=== PATIENT | male | born 1955 | race Caucasian/White ===

== ENCOUNTER 2020-11-17 12:41 | Observation (INO) | payer MEDICARE, OTHER ==
[2020-11-17 16:07] VITALS: BMI 28.3
[2020-11-17 17:43] LABS: Absolute Lymphocytes (CBC) 1.7 K/uL (0.7-4.9); Basophils % 0.6 % (0-1.3); Hematocrit 40.4 % (39.6-49.0); Lymphocytes % 28.3 % (15.3-44.8); MPV 7.2 fL (7.6-11.3); RBC Red Blood Cell Count 4.13 M/uL (4.33-5.43)
[2020-11-17] MEDS ORDERED: SOTALOL HCL 80 MG TAB PO ONE (18:00)
[2020-11-17 18:07] LABS: ALT/SGPT 55 U/L (12-78); AST/SGOT 33 U/L (15-37); Albumin 3.8 g/dL (3.4-5.0); Alkaline Phosphatase 82 U/L (45-117); BUN Blood Urea Nitrogen 17 mg/dL (7-18); Bicarbonate 28 mmol/L (21-32); Bilirubin Total 0.6 mg/dL (0.2-1.0); CKMB Creatine Kinase MB 1.1 ng/mL (0.3-3.6); Creatine Phosphokinase 77 U/L (39-308); Glucose Level 97 mg/dL (74-106); Magnesium 2.3 mg/dL (1.8-2.4); Potassium 4.3 mmol/L (3.5-5.1); Protein, Total 7.7 g/dL (6.4-8.2); Sodium Level 137 mmol/L (136-145); Troponin I < 0.02 ng/mL (0.0-0.045)
[2020-11-17] MEDS ORDERED: RIVAROXABAN 20 MG TABLET PO ONE (19:08)
--- NOTE | 2020-11-17 22:18 | HP ---
Date of Admission: 11/17/2020 Chief Complaint: Atrial fibrillation. History Of Present Illness: This is a 65-year-old male patient, who came into office for his routine followup visit and he had no complaints of palpitation, no shortness of breath. Upon examination, t he patient was detected to have irregular heart rhythm and a stat EKG was done, which revealed atrial fibrillation as suspected and the patient was advised to get admitted to the hospital for further ev aluation and management of this problem. The patient does not have any prior history of atrial fibri llation. Allergies: LISINOPRIL CAUSING ANGIOEDEMA. Medications: Amlodipine 10 mg daily, aspirin 81 mg takes 2 tablets daily, famotidine 40 mg daily at bedtime, pravastatin 40 mg daily. Review of Systems: Cardiovascular: As mentioned above. All other systems reviewed and negative. Past Medical History: Significant for impaired fasting glucose, hypertension, hyperlipidemia, COPD, gastroesophageal reflux disease, benign prostatic hypertrophy, and elevated PSA. Past Surgical History: Cervical spine surgery. Family History: Father with osteoarthritis. Mother had unknown type of cancer. His siblings are al iglesia and no known health problems. Social History: Prior history of smoking, not at present time. Use of alcohol negative. Physical Examination: Vital Signs: Blood pressure 129/85, pulse 87 and irregularly irregular, temperature 97.2, respirator y rate 15, weight 186.6 pounds, height 69 inches. General: Awake, alert, oriented, not in distress. HEENT: Head atraumatic, normocephalic. Conjunctivae nonerythematous. Sclerae white. Mouth, no thr ush or edema noted. Ears/Nose, no mass, lesion, discharge noted. Neck: Supple. No JVD, lymph nodes, bruit, thyromegaly noted. Lungs: Bilateral good equal air entry. Clear to auscultation. No rhonchi. No rales. Heart: Normal heart sounds, no murmur or gallop. Abdomen: Soft, bowel sounds normal. No guarding, rigidity, tenderness, mass, hepatosplenomegaly, dis tention, or bruit noted. Extremities: No leg edema. No calf tenderness. Skin: No rash, ulcer, cellulitis. Lymphatics: No lymph node enlargement in neck, supraclavicular, infraclavicular region. Neuro: No focal neurological deficit. Chest: Unremarkable. External Genitalia: Deferred. Rectal: Deferred. Laboratory Data: Outpatient EKG shows atrial fibrillation. White count 6, hemoglobin 13.8, platelet s 289. Sodium 137, potassium 4.3, chloride 104, bicarb 28, BUN 17, creatinine 0.61, glucose 97. Kari er function tests unremarkable. TSH 1.46. COVID-19 test negative. Magnesium 2.3. Troponin less th an 0.02. Impression: 1.Atrial fibrillation, paroxysmal. 2.Hypertension. 3.Hyperlipidemia. 4.Impaired fasting glucose. 5.Gastroesophageal reflux disease. Plan: We will go ahead and admit the patient to hospital for further evaluation and management of th is problem. We will admit the patient for observation to telemetry unit and after the patient's admi ssion to the hospital he will start him on sotalol 80 mg. We will continue that every 12 hours and X arelto 20 mg p.o. x1 dose was ordered to be given this evening. Home medications will be continued p er order. We will get an echo with Doppler and consult Cardiology. Details and plan of treatment discussed with the patient. I will see him tomorrow morning for followup. MONIKA/MODL Voice ID: [id number]
[2020-11-18] MEDS: SOTALOL HCL 80 MG TAB PO SCH ×2 (05:25→17:09)
[2020-11-18 05:28] VITALS: O2SAT 100
--- NOTE | 2020-11-18 09:32 | RAD REPORT ---
EXAM DESCRIPTION: US - Abdomen Exam Complete - 11/18/2020 8:45 am CLINICAL HISTORY: gallbladder polyp COMPARISON: Abdomen Exam Complete dated 06/09/2020 FINDINGS: Gallbladder size is normal. No mobile gallstones identified. A 10 millimeter echogenic non shadowing mass within the lumen of the gallbladder is noted. This is similar to the May 2020 w[place] dy. Growth is not suspected. This could be a large polyp or possibly neoplasm. Common bile duct is no rmal with no common duct stone identified. Liver is normal size with no suspicious liver lesion. Small cyst is present in the central right lobe . Echogenic pattern indicates fatty infiltration. No portal vein abnormality. Spleen could not be clearly visualized due to bowel. There is no notation to indicate prior splenecto my. Normal size spleen was seen on the May 2020 study. The pancreas is obscured by bowel gas. No hydronephrosis or suspicious mass in either kidney. Aorta and IVC are partially obscured by bowel. No gross abnormality seen. No ascites or bulky lymphad enopathy. IMPRESSION: A 10 millimeter echogenic mass in the gallbladder lumen is again noted. No change in siz e has occurred since May 2020. This is probably a large polyp. A neoplasm cannot be excluded 1 a polyp has reached this size. Diffuse fatty infiltration of the liver with no suspicious liver lesion identified. The spleen, pancreas, aorta and IVC are obscured are partially obscured due to bowel and body habitus affects. Follow-up CT imaging can be performed as clinical findings warrant.
[2020-11-18 16:28] VITALS: BP 116/65; TEMP 97
--- NOTE | 2020-11-18 16:56 | CON ---
Date of Consultation: 11/18/2020 Reason For Consultation: New onset atrial fibrillation. History Of Present Illness: Mr. Reynolds is a 65-year-old male. He has a history of hypertension, gas troesophageal reflux disease, and dyslipidemia. He was seen by Dr. Fernandez on routine office visit and was found to be in atrial fibrillation with rate controlled, admitted into the hospital for further e valuation and treatment. He has been on sotalol, he has already received two doses of 80 mg, and rem ains in atrial fibrillation, rate of 79, again no symptoms. He was also placed on Xarelto. Past Medical History: As stated earlier. Allergies: HE IS ALLERGIC TO LISINOPRIL AND HE HAS ANGIOEDEMA WITH IT. Review of Systems: Negative. Social History: Negative. Family History: Noncontributory. Medications: At home include aspirin, Pravachol, Pepcid, and Norvasc. Physical Examination: Vital Signs: Stable. He was afebrile. He was in atrial fibrillation, rate is 71. HEENT: Negative. Neck: Supple with no bruit. Chest: Clear. Cardiac: Revealed atrial fibrillation. Abdomen: Benign. Extremities: Revealed no clubbing, cyanosis, or edema. Diagnostic Data: All normal other than the atrial fibrillation. Impression And Plan: Atrial fibrillation, new onset in the setting of dyslipidemia, hypertension fro m alcohol use. I think his CHADS-VASc score Xarelto. He is on sotalol. I think after hi s third dose, he can go home. He has an echocardiogram pending. I will see him in the next 2 weeks or so and we will have a new stress test as an outpatient and if he stays in atrial fibrillation in 3 weeks, then . Case was discussed with Dr. Fernandez. He needs to continue his Pravachol and n eeds to continue his Pepcid, aspirin and Norvasc. CAREY/ANNL Voice ID: [id number] Report ID: [id number]
[2020-11-18] MEDS ORDERED: RIVAROXABAN 20 MG TABLET PO ONE (18:57)
--- NOTE | 2020-11-18 21:59 | DS ---
Date of Discharge: 11/18/2020 Subjective: The patient was seen this morning for followup. No new complaints or problems reported by the patient. Physical Examination: General: Lying in bed, not in distress. HEENT: Unremarkable. Lungs: Clear to auscultation. Heart: Sounds normal. Abdomen: Soft. Bowel sounds normal. No guarding, rigidity, tenderness, distention. Extremities: No leg edema. Discharge Medications And Instructions: 1.Continue all prior home medication except following changes: a.Stop amlodipine. b.Stop aspirin. c.Start Xarelto 20 mg 1 tablet by mouth daily with evening meal. d.Start sotalol 80 mg take 1 tablet by mouth 2 times a day. 2.Prescription for Xarelto and sotalol was sent to his [facility]. 3.Follow up at my office next week on 11/24/2020 at 9 a.m. 4.Follow up with Dr. Justin in 3 weeks. Hospital Course: This is a 65-year-old male patient, admitted to the hospital with new onset atrial fibrillation. Please see dictated H and P for more information. The patient came into the office. He was evaluated, diagnosed as having atrial fibrillation, and he had no symptoms from atrial fibrill ation. He was admitted to the hospital to telemetry unit and he was started on sotalol and Dr. Get manuel from Cardiology was consulted. The patient also received anticoagulation therapy. Xarelto first dose was given yesterday evening and second dose was given today prior to discharge. Importance of a nticoagulation therapy was discussed with him and risk and benefit of anticoagulation therapy discuss ed with him. He was advised to take appropriate precautions to avoid any injury and if he has any he ad injury, then he needs to report to emergency room for further evaluation. Dr. Justin has evaluat ed him and echocardiogram was done, result pending, and Dr. Justin will follow up in about 3 weeks. If he still remains in atrial fibrillation at that time, then he will decide to do electrical cardio version on him. Abdominal ultrasound has shown 10 mm gallbladder polyp, unchanged from May 2020 . On an elective outpatient basis, we will consider referral to general surgeon for consideration of gallbladder surgery considering the size of the gallbladder polyp, but that should be done probably in the near future once we resolve this issue with atrial fibrillation. Final Diagnoses: 1.Atrial fibrillation, paroxysmal. 2.Hypertension. 3.Hyperlipidemia. 4.Gallbladder polyp. 5.Impaired fasting glucose. 6.Gastroesophageal reflux disease. Laboratory Data: White count 6, hemoglobin 13.8, platelets 289. Sodium 137, potassium 4.3, chloride 104, bicarb 28, BUN 17, creatinine 0.61, glucose 97. Liver function tests unremarkable. TSH 1.46. COVID-19 test negative. Magnesium 2.3. Troponin less than 0.02. MONIKA/MODL Voice ID: [id number] Report ID: [id number]
--- NOTE | 2020-11-19 08:05 | ECHO ---
HEIGHT: 5 ft 8 in WEIGHT: 186 lb 1.6 oz DATE OF STUDY: 11/18/[address]: Evan Fernandez MD 2-DIMENSIONAL: YES M.MODE: YES DOPPLER: YES COLOR FLOW: YES TDS: NO PORTABLE: NO DEFINITY: NO BUBBLE STUDY: NO DIAGNOSIS: ATRIAL FIBRILLATION CARDIAC HISTORY: CATHERIZATION: NO SURGERY: NO PROSTHETIC VALVE: NO PACEMAKER: NO MEASUREMENTS (cm) DIASTOLIC (NORMALS) SYSTOLIC (NORMALS) IVSd 1.0 (0.6-1.2) LA Diam 3.4 (1.9-4.0) LVEF 58% LVIDd 3.9 (3.5-5.7) LVIDs 2.7 (2.0-3.5) %FS 30% LVPWd 1.2 (0.6-1.2) Ao Diam 2.6 (2.0-3.7) 2 DIMENSIONAL ASSESSMENT: RIGHT ATRIUM: NORMAL LEFT ATRIUM: NORMAL RIGHT VENTRICLE: NORMAL LEFT VENTRICLE: NORMAL TRICUSPID VALVE: NORMAL MITRAL VALVE: NORMAL PULMONIC VALVE: NORMAL AORTIC VALVE: NORMAL PERICARDIAL EFFUSION: NONE AORTIC ROOT: NORMAL LEFT VENTRICULAR WALL MOTION: NORMAL DOPPLER/COLOR FLOW: NORMAL COMMENTS: NORMAL LEFT VENTRICULAR SIZE AND FUNCTION. NO WALL MOTION ABNORMALITY. NORMAL LEFT ATRIAL SIZE. ATRIAL FIBRILLATION. NO THROMBUS. TECHNOLOGIST: Faustino LEYVA
== END 2020-11-18 19:52 | disposition home or self-care (01) ==
LOC: 2ND 15:17
PROVIDERS: ADMIT Internal Medicine; ATTEND Internal Medicine
DX: I48.0 Paroxysmal atrial fibrillation (principal); I10 Essential (primary) hypertension; E78.5 Hyperlipidemia, unspecified; K82.4 Cholesterolosis of gallbladder; R73.01 Impaired fasting glucose; K21.9 Gastro-esophageal reflux disease without esophagitis; J44.9 Chronic obstructive pulmonary disease, unspecified; N40.0 Benign prostatic hyperplasia without lower urinary tract symptoms; Z20.822 Contact with and (suspected) exposure to COVID-19; Z87.891 Personal history of nicotine dependence; Z79.82 Long term (current) use of aspirin; Z79.899 Other long term (current) drug therapy; Z88.8 Allergy status to other drugs, medicaments and biological substances; Z80.9 Family history of malignant neoplasm, unspecified; Z82.61 Family history of arthritis
CPT/HCPCS: 93306; 85025; 36415; 83735; 82550; 84443; 84484; 82553; 80053; 76700; U0003; 93005; G0378; G0379

== ENCOUNTER 2021-02-23 07:26 | Day surgery (SDC) | payer OTHER ==
--- NOTE | 2021-02-17 15:43 | RAD REPORT ---
EXAM DESCRIPTION: RAD - Chest Pa And Lat (2 Views) - 02/17/2021 3:26 pm CLINICAL HISTORY: preop Chest pain. COMPARISON: Chest Pa And Lat (2 Views) dated 06/09/2020; Chest Pa And Lat (2 Views) dated 11/21/2019 FINDINGS: The lungs are clear. The heart is normal in size. No displaced fractures. IMPRESSION: No acute or concerning finding suspected.
[2021-02-17 15:53] LABS: BUN Blood Urea Nitrogen 10 mg/dL (7-18); Bicarbonate 26 mmol/L (21-32); Glucose Level 101 mg/dL (74-106); Potassium 4.2 mmol/L (3.5-5.1); Sodium Level 133 mmol/L (136-145)
[2021-02-17 16:06] LABS: Absolute Lymphocytes (CBC) 1.5 K/uL (0.7-4.9); Basophils % 0.8 % (0-1.3); Lymphocytes % 30.9 % (15.3-44.8); MPV 7.4 fL (7.6-11.3); RBC Red Blood Cell Count 3.86 M/uL (4.33-5.43)
[2021-02-23] MEDS ORDERED: CEFOXITIN/SWI 1gm 1 GM/10 ML SYR ONE (08:13)
[2021-02-23] MEDS ORDERED: Ringers Lactate 1,000 ML IV ONE ×2 (08:13→09:41)
[2021-02-23] MEDS ORDERED: ROCURONIUM 50 MG/5 ML VIAL IV ONE (08:20)
[2021-02-23] MEDS ORDERED: dexAMETHasone 10 MG/ML VIAL ONE (08:20)
[2021-02-23] MEDS ORDERED: KETOROLAC 30 MG/ML INJ ONE (08:20)
[2021-02-23] MEDS ORDERED: MIDAZOLAM HCL 2 MG/2 ML INJ ONE (08:20)
[2021-02-23] MEDS ORDERED: propofoL 200 MG/20 ML VIAL IV ONE (08:20)
[2021-02-23] MEDS ORDERED: FENTANYL CITR 100 MCG/2 ML ONE (08:20)
[2021-02-23] MEDS ORDERED: ONDANSETRON 4 MG/2 ML VIAL ONE (08:20)
[2021-02-23] MEDS ORDERED: LIDOCAINE 1% MPF 30 ML VIAL ONE (08:21)
[2021-02-23] MEDS ORDERED: NEOSTIGMINE 1 MG/ML -5 ML ONE (09:43)
[2021-02-23] MEDS ORDERED: GLYCOPYRROLATE 0.2 MG/ML SYR ONE (09:43)
[2021-02-23] MEDS ORDERED: CODEINE 30MG/APAP 300MG TAB ONE (11:00)
--- NOTE | 2021-02-23 11:15 | OP ---
Date of Procedure: 02/23/2021 Surgeon: Howie Cortes MD Louver Door Assembler: David Mccullough, Sanitation Worker [employer]inery Certified. Preoperative Diagnosis: Gallbladder polyp. Postoperative Diagnosis: Gallbladder polyp and extensive adhesions Procedure Performed: Laparoscopic cholecystectomy, lysis of adhesions. Estimated Blood Loss: Minimal. Specimen: Gallbladder. Finding: As above. Anesthesia: General. Complications: None. Disposition: The patient tolerated the procedure in stable condition and taken to Recovery in good general condition. Procedure In Detail: The patient was brought to the OR and placed in supine position. General anesthesia begun. The patient was prepped and draped in the usual sterile fashion. Then, Marcaine 0.5% infiltrated locally. A 15-blade was used to make a 1 cm supraumbilical midline incision. Subcutaneous tissue was divided. Fascia was identified and divided. A #1 Vicryl stay sutures were placed. Peritoneal cavity entered with sharp and blunt dissection. A 12 mm trocar was placed into the peritoneal cavity under direct vision. Pneumoperitoneum was established and then three 5 mm trocars placed, 1 in the epigastrium just to the right of midline and 2 in the right subcostal region. Laparoscopy revealed extensive adhesions to the gallbladder. They were omental in nature. These were taken down with LigaSure and required 10-15 minutes of time to take all the adhesions. The gallbladder was completely identified. Fundus was retracted superiorly. Infundibulum was identified and retracted inferolaterally. Cystic duct and cystic artery were clearly identified with blunt dissection. Clips were placed. Both structures were divided. Cautery was used to remove the gallbladder from the liver bed. Bleeding on the liver bed was controlled with cautery. Gallbladder was retrieved through the umbilicus via an EndoCatch bag and then right upper quadrant was irrigated. Effluent was clear. No evidence of bleeding or bile leakage appreciated. Subsequently, all trocars were removed under direct vision. Stay sutures were tied to each other to reapproximate the fascial defect. Subcutaneous wounds were irrigated. Bleeding was controlled with cautery. A 4-0 Monocryl was used to reapproximate the subcutaneous tissue and close the skin. Sterile dressing was applied. The patient was awakened and taken to Recovery in good general condition. Discharge Note: The patient will go to day surgery and home when stable. Disposition: Home. Condition: Stable. Discharge Instructions: Resume home medications and diet. Activity as tolerated. No heavy lifting. Remove outer dressing in 2 days. Shower. Keep wound clean and dry. Keep Steri-Strips on at all times. Follow up in my office in 1 week. Call for appointment. Tylenol No.3 one tablet p.o. q.4 p.r.n. pain. Start Xarelto tomorrow. BRITTANY/DEYANIRA Voice ID: [id number] Report ID: [id number]
[2021-02-23 11:21] VITALS: TEMP 97.2; O2SAT 100
[2021-02-23 11:23] VITALS: BP 161/79
== END 2021-02-23 11:10 | disposition home or self-care (01) ==
LOC: OR 07:26
PROVIDERS: ATTEND Surgery
PROC: 0DNU4ZZ Release Omentum, Percutaneous Endoscopic Approach (ICD-10-PCS; 2021-02-23)
PROC: 0FT44ZZ Resection of Gallbladder, Percutaneous Endoscopic Approach (ICD-10-PCS; principal; 2021-02-23 08:30)
DX: K82.4 Cholesterolosis of gallbladder (principal); K81.1 Chronic cholecystitis; K66.0 Peritoneal adhesions (postprocedural) (postinfection); Z20.822 Contact with and (suspected) exposure to COVID-19
CPT/HCPCS: 85025; 80048; 36415; 88304; 71046; 47562; 49329; U0003; J2704; J2250; J3010; J1100; J2710; J7120 ×2; J2405

== ENCOUNTER 2023-06-26 00:20 | Emergency (ER) | payer OTHER ==
--- OUTSIDE RECORDS SUMMARY | 2023-06-26 00:27 | XMS REPORT | Continuity of Care Document ---
:1955 Author Organization [facility] t Address [address] [place] [address] Care Team Providers Name Role Phone Asked, No Pcp Primary Care Physician Unavailable Elizabeth JEREZ, Adriana Montenegro Attending Clinician Abbe Carrizales Attending Clinician María Strickland APRN Attending Clinician Femi Marina MD Attending Clinician Jarvis Waddell PT Attending Clinician Unavailable Rashid Attending Clinician Unavailable Augustin Bajwa Attending Clinician Unavailable Rizwana Harris MA Attending Clinician Unavailable Maurice Rider Attending Clinician Unavailable Ramon Garvey Attending Clinician Unavailable ADRIANA RIVAS Admitting Clinician Unavailable Rashid Admitting Clinician Unavailable Augustin Bajwa Admitting Clinician Unavailable Evan Fernandez Admitting Clinician Unavailable Maurice Rider Admitting Clinician Unavailable Ramon Garvey Admitting Clinician Unavailable Payers Payer Name Policy Type Policy Number Effective Date Expiration Date S joel LANGSTON (MEDICARE [id number] 2020 REPLACEMENT PPO) 00:00:00 Problems Condition Condition Condition Status Onset Resolution Last Treating Co mments Source Name Details Category Date Date Treatment Clinician Date BPH with BPH with Disease Active 2022-07 [facility] obstructio obstructio 1-20 st n/lower n/lower 00:00: Hospita urinary urinary 00 l tract tract symptoms symptoms Erectile Erectile Problem Active [place] dysfunctio Dysfunctio 8-16 Me tro n n 00:00: Urology 00 Induration Induration Problem Active [place] penis Penis 8-16 [facility] plastica Plastica 00:00: Urolog y 00 Prostate Prostate Problem Active 2021-07 [place] specific Specific 0-17 [facility] antigen Antigen 00:00: Urology above above 00 reference Reference range Range Lower Lower Problem Active 2021-07 [place] urinary Urinary 0-17 [facility] tract Tract 00:00: Urology symptoms Symptoms 00 due to Due to benign Benign prostatic Prostatic hypertroph Hypertroph y y Allergies, Adverse Reactions, Alerts Allergy Allergy Status Severity Reaction(s) Onset Inactive Treating Comm ents Source Name Type Date Date Clinician Lisinopr Propensi Active Swelling Swelling Me thodi il ty to 8-[address] adverse 00:00: face/head Hospit a reaction 00 l s to drug lisinopr DA Active [facility] 7-25 [place] 00:00: Health 00 are [facility] lisinopr DA Active [facility] F[facility] 7-24 [place] 00:00: [facility] 00 are [facility] lisinopr DA Active MO [facility] il 2-21 [place] 00:[facility]: d 00 [facility] Lisinopr Allergy Active [place] il to [facility] substanc Urology e Social History Social Habit Start Date Stop Date Quantity Comments Source Gender identity [facility] History of tobacco Current smoker [facility] Alcohol intake 2023-06-15 2023-06-15 Current drinker of Me [facility]ist 00:00:00 00:00:00 alcohol (finding) Hospita l History of Social 2023-06-15 2023-06-[address] function 00:00:00 00:00:00 Hospital Tobacco use and 2023-03-10 2023-03-10 Smokeless tobacco [facility] exposure 00:00:00 00:00:00 non-user Hospital Alcohol Comment 2023-03-10 2023-03-10 occaisional Methodis t 00:00:00 00:00:00 Hospital Sex Assigned At [birth year] [facility] Smoking Status Start Date Stop Date Source Tobacco smoking [facility] 2023-03-10 00:00:00 2023-03-10 [facility] Medications Ordered Filled Start Stop Current Ordering Indication Dosage Frequency Signature Comments Components Source Medication Medication Date Date Medication? Clinician (SIG) Name Name amLODIPine 2022-07 Yes 10mg QD Take 1 [facility] di (NORVASC) 1-21 tablet (10 st 10 mg 15:22: mg total) Hospita tablet 24 by mouth l daily. aspirin 2022-07 Yes 81mg QD Take 1 [facility] (ECOTRIN) 1-21 tablet (81 st 81 MG 15:22: mg total) Hospita enteric 24 by mouth l coated daily. tablet atorvastati 2022-07 Yes 80mg QD Take 1 Meth yosi n (LIPITOR) 1-21 tablet (80 st 80 MG 15:22: mg total) Hospita tablet 24 by mouth l daily. clopidogreL 2022-07 Yes 75mg QD Take 1 Meth yosi (PLAVIX) 75 1-21 tablet (75 st mg tablet 15:22: mg total) Hos travis 24 by mouth l nightly. losartan 2022-07 Yes 100mg QD Take 1 Method i (COZAAR) 1-[address] 100 MG 15:22: (100 mg Hospita tablet 24 total) by l mouth daily. pantoprazol 2022-07 Yes 40mg QD Take 1 Meth yosi e 1-21 tablet (40 st (PROTONIX) 15:22: mg total) Ho spita 40 MG EC 24 by mouth l tablet daily. sotaloL 2022-07 Yes 80mg Q.5D Take 1 Method[facility] (sotalol 1-21 tablet (80 st AF) 80 MG 15:22: mg total) Hos travis tablet 24 by mouth 2 l (two) times a day. tamsulosin 2022-07 Yes .4mg Q.5D Take 1 Metho di (FLOMAX) 08-[address] 0.4 mg 15:22: (0.4 mg Hospita capsule 24 total) by l mouth 2 (two) times a day. CALCIUM 2022-07 Yes Take by Methodi ORAL - mouth. st 15:22: Hospita 24 l cholecalcif 2022-07 Yes Take by Met hodi marely, 08-[address] vitamin D3, 15:22: Hospit a (VITAMIN D3 24 l ORAL) Saccharomyc 2022-07 Yes 250mg Q.5D Take 1 Met hodi es 08-[address] boulardii 15:22: (250 mg Hospi ta (FLORASTOR) 24 total) by l 250 mg mouth 2 capsule (two) times a day. folic acid 2022-07 Yes 1{tbl} QD Take 1 Met hodi 2.5 mg + B6 08-[address] 25 mg + B12 15:22: mouth Hospi ta 2 mg 24 daily. l (Folbic) 2.5-25-2 mg tablet ferrous 2022-07 Yes 325mg QD Take 1 Methodi sulfate 325 08-[address] (65 FE) MG 15:22: (325 mg Hosp florecita tablet 24 total) by l mouth daily with breakfast. cholestyram 2022-07 Yes 1{packe Take 1 M ethodi ine 08-14 t} packet by st (QUESTRAN) 15:22: mouth as Hos travis 4 gram 24 needed l packet (diarrhea) . docusate 2022-07- Yes 100mg Q.5D Take 1 Metho di sodium 08-[address] (Colace) 00:00: 05:59 (100 mg Hospi ta 100 MG 00 :00 total) by l capsule mouth 2 (two) times a day for 30 days. phenazopyri 2022-07- No 100mg [id number] Take 1 Methodi dine 08-[id number] (Pyridium) 00:00: 05:59 3D (100 mg Hos travis 100 MG 00 :00 total) by l tablet mouth 3 (three) times a day as needed for bladder spasms for up to 10 days. sulfamethox 2022-07- No 1{tbl} Q.5D Take 1 M ethodi azole-trime 08-[address] thoprim 00:00: 05:59 mouth 2 Hospit a (Bactrim 00 :00 (two) l DS) 800-160 times a mg per day for 5 tablet days. finasteride 2022-07 Yes 5mg Take 1 Meth yosi (PROSCAR) 5 -06 tablet (5 st mg tablet 00:00: mg total) Hos travis 00 by mouth l See Admin Instructio ns. Start 2 weeks prior to surgery amlodipine amlodipine No amlodipine [place] 10 mg 10 mg 10 mg [facility] tablet tablet tablet Urology amoxicillin amoxicillin No amoxicilli [place] 500 mg 500 mg n 500 mg [facility] capsule capsule capsule Urolog y atorvastati atorvastati No atorvastat [place] n 80 mg n 80 mg in 80 mg [facility] tablet tablet tablet Urology clopidogrel clopidogrel No clopidogre [place] 75 mg 75 mg l 75 mg [facility] tablet tablet tablet Urology ibuprofen ibuprofen No ibuprofen [place] 600 mg 600 mg 600 mg [facility] tablet tablet tablet Urology losartan losartan No losartan Karin ston 100 mg 100 mg 100 mg [facility] tablet tablet tablet Urology losartan losartan No losartan Karin ston potassium potassium potassium [facility] (bulk) (bulk) (bulk) Urology pantoprazol pantoprazol No pantoprazo [place] e e le [facility] Urology pantoprazol pantoprazol No pantoprazo [place] e 40 mg e 40 mg le 40 mg [facility] tablet,jean tablet,jean tablet,del Urology yed release yed release ayed release pravastatin pravastatin No pravastati [place] [facility] pravastatin pravastatin No pravastati [place] 80 mg 80 mg n 80 mg [facility] tablet tablet tablet Urology sotalol 80 sotalol 80 No sotalol 80 [place] mg tablet mg tablet mg tablet [facility] Take 1 Take 1 Take 1 Urology tablet tablet tablet twice a day twice a day twice a by oral by oral day by route. route. oral route. sulfamethox sulfamethox No sulfametho [place] azole 800 azole 800 xazole 800 [facility] mg-trimetho mg-trimetho mg-trimeth Urology prim 160 mg prim 160 mg oprim 160 tablet Take tablet Take mg tablet 1 tablet 1 tablet Take 1 every 12 every 12 tablet hours by hours by every 12 oral route oral route hours by for 3 days. for 3 days. oral route for 3 days. tamsulosin tamsulosin No tamsulosin [place] 0.4 mg 0.4 mg 0.4 mg [facility] capsule capsule capsule Urolog y TAKE ONE TAKE ONE TAKE ONE CAPSULE BY CAPSULE BY CAPSULE BY MOUTH DAILY MOUTH DAILY MOUTH DAILY amlodipine amlodipine No amlodipine [place] [facility] amlodipine amlodipine No amlodipine [place] 10 mg 10 mg 10 mg [facility] tablet tablet tablet Urology amoxicillin amoxicillin No amoxicilli [place] 500 mg 500 mg n 500 mg [facility] capsule capsule capsule Urolog y atorvastati atorvastati No atorvastat [place] n 80 mg n 80 mg in 80 mg [facility] tablet tablet tablet Urology clopidogrel clopidogrel No clopidogre [place] 75 mg 75 mg l 75 mg [facility] tablet tablet tablet Urology ibuprofen ibuprofen No ibuprofen [place] 600 mg 600 mg 600 mg [facility] tablet tablet tablet Urology losartan losartan No losartan Karin ston 100 mg 100 mg 100 mg [facility] tablet tablet tablet Urology losartan losartan No losartan Karin ston potassium potassium potassium [facility] (bulk) (bulk) (bulk) Urology pantoprazol pantoprazol No pantoprazo [place] e e le [facility] pantoprazol pantoprazol No pantoprazo [place] e 40 mg e 40 mg le 40 mg [facility] tablet,jean tablet,jean tablet,del Urology yed release yed release ayed release pravastatin pravastatin No pravastati [place] [facility] pravastatin pravastatin No pravastati [place] 80 mg 80 mg n 80 mg [facility] tablet tablet tablet Urology sotalol 80 sotalol 80 No sotalol 80 [place] mg tablet mg tablet mg tablet [facility] Take 1 Take 1 Take 1 Urology tablet tablet tablet twice a day twice a day twice a by oral by oral day by route. route. oral route. amlodipine amlodipine No amlodipine [place] [facility] sulfamethox sulfamethox No sulfametho [place] azole 800 azole 800 xazole 800 [facility] mg-trimetho mg-trimetho mg-trimeth Urology prim 160 mg prim 160 mg oprim 160 tablet Take tablet Take mg tablet 1 tablet 1 tablet Take 1 every 12 every 12 tablet hours by hours by every 12 oral route oral route hours by for 3 days. for 3 days. oral route for 3 days. tamsulosin tamsulosin No tamsulosin [place] 0.4 mg 0.4 mg 0.4 mg [facility] capsule capsule capsule Urolog y TAKE 1 TAKE 1 TAKE 1 CAPSULE BY CAPSULE BY CAPSULE BY MOUTH DAILY MOUTH DAILY MOUTH DAILY Flomax 0.4 Fl[place] 0.4 No 1capsul Q1D Flom[place] 0.4 [place] mg capsule mg capsule e(s) mg capsule [facility] Take 1 Take 1 Take 1 Urology capsule capsule capsule every day every day every day by oral by oral by oral route for route for route for 30 days. 30 days. 30 days. amlodipine amlodipine No amlodipine [place] [facility] losartan losartan No losartan Karin ston potassium potassium potassium [facility] (bulk) (bulk) (bulk) Urology amlodipine amlodipine No amlodipine [place] 10 mg 10 mg 10 mg [facility] tablet tablet tablet Urology amoxicillin amoxicillin No amoxicilli [place] 500 mg 500 mg n 500 mg [facility] capsule capsule capsule Urolog y atorvastati atorvastati No atorvastat [place] n 80 mg n 80 mg in 80 mg [facility] tablet tablet tablet Urology clopidogrel clopidogrel No clopidogre [place] 75 mg 75 mg l 75 mg [facility] tablet tablet tablet Urology Colace 100 Colace 100 No Colace 100 [place] mg capsule mg capsule mg capsule [facility] take one take one take one Uro logy capsule by capsule by capsule by mouth twice mouth twice mouth a day a day twice a following following day surgery surgery following surgery finasteride finasteride No finasterid [place] 5 mg tablet 5 mg tablet e 5 mg [facility] TAKE 1 TAKE 1 tablet Urology TABLET BY TABLET BY TAKE 1 MOUTH DAILY MOUTH DAILY TABLET BY STARTING 2 STARTING 2 MOUTH WEEKS PRIOR WEEKS PRIOR DAILY TO SURGERY TO SURGERY STARTING 2 WEEKS PRIOR TO SURGERY ibuprofen ibuprofen No ibuprofen [place] 600 mg 600 mg 600 mg [facility] tablet tablet tablet Urology losartan losartan No losartan Karin ston 100 mg 100 mg 100 mg [facility] tablet tablet tablet Urology losartan losartan No losartan Karin ston potassium potassium potassium [facility] (bulk) (bulk) (bulk) Urology pantoprazol pantoprazol No pantoprazo [place] e e le [facility] pantoprazol pantoprazol No pantoprazo [place] e e le [facility] pantoprazol pantoprazol No pantoprazo [place] e 40 mg e 40 mg le 40 mg [facility] tablet,jean tablet,jean tablet,del Urology yed release yed release ayed release phenazopyri phenazopyri No phenazopyr [place] dine 100 mg dine 100 mg idine 100 [facility] tablet Take tablet Take mg tablet Urology 1 tablet by 1 tablet by Take 1 mouth every mouth every tablet by 6-8 hrs prn 6-8 hrs prn mouth pain and pain and every 6-8 burning burning hrs prn following following pain and surgery surgery burning following surgery pravastatin pravastatin No pravastati [place] [facility] p[facility] mg n 80 mg [facility] tablet tablet tablet Urology sotalol 80 sotalol 80 No sotalol 80 [place] mg tablet mg tablet mg tablet [facility] Take 1 Take 1 Take 1 Urology tablet tablet tablet twice a day twice a day twice a by oral by oral day by route. route. oral route. sulfamethox sulfamethox No sulfametho [place] azole 800 azole 800 xazole 800 [facility] mg-trimetho mg-trimetho mg-trimeth Urology prim 160 mg prim 160 mg oprim 160 tablet take tablet take mg tablet one tablet one tablet take one by mouth by mouth tablet by twice daily twice daily mouth following following twice surgery surgery daily following surgery tamsulosin tamsulosin No tamsulosin [place] 0.4 mg 0.4 mg 0.4 mg [facility] capsule capsule capsule Urolog y TAKE 1 TAKE 1 TAKE 1 CAPSULE BY CAPSULE BY CAPSULE BY MOUTH DAILY MOUTH DAILY MOUTH DAILY pravastatin pravastatin No pravastati [place] [facility] sotalol 80 sotalol 80 No 1 BID sotalol 80 [place] mg tablet mg tablet mg tablet [facility] Take 1 Take 1 Take 1 Urology tablet tablet tablet twice a day twice a day twice a by oral by oral day by route. route. oral route. amlodipine amlodipine No amlodipine [place] [facility] losartan losartan No losartan Karin ston potassium potassium potassium [facility] (bulk) (bulk) (bulk) Urology pantoprazol pantoprazol No pantoprazo [place] e e le [facility] pantoprazol pantoprazol No pantoprazo [place] e 40 mg e 40 mg le 40 mg [facility] tablet,jean tablet,jean tablet,del Urology yed release yed release ayed release pravastatin pravastatin No pravastati [place] [facility] sotalol 80 sotalol 80 No 1 BID sotalol 80 [place] mg tablet mg tablet mg tablet [facility] Take 1 Take 1 Take 1 Urology tablet tablet tablet twice a day twice a day twice a by oral by oral day by route. route. oral route. sulfamethox sulfamethox No sulfametho [place] azole 800 azole 800 xazole 800 [facility] mg-trimetho mg-trimetho mg-trimeth Urology prim 160 mg prim 160 mg oprim 160 tablet Take tablet Take mg tablet 1 tablet 1 tablet Take 1 every 12 every 12 tablet hours by hours by every 12 oral route oral route hours by for 3 days. for 3 days. oral route for 3 days. tamsulosin tamsulosin No tamsulosin [place] 0.4 mg 0.4 mg 0.4 mg [facility] capsule capsule capsule Urolog y Take 1 Take 1 Take 1 capsule capsule capsule every day every day every day by oral by oral by oral route for route for route for 30 days. 30 days. 30 days. amlodipine amlodipine No amlodipine [place] [facility] amlodipine amlodipine No amlodipine [place] 10 mg 10 mg 10 mg [facility] tablet tablet tablet Urology amoxicillin amoxicillin No amoxicilli [place] 500 mg 500 mg n 500 mg [facility] capsule capsule capsule Urolog y atorvastati atorvastati No atorvastat [place] n 80 mg n 80 mg in 80 mg [facility] tablet tablet tablet Urology clopidogrel clopidogrel No clopidogre [place] 75 mg 75 mg l 75 mg [facility] tablet tablet tablet Urology ibuprofen ibuprofen No ibuprofen [place] 600 mg 600 mg 600 mg [facility] tablet tablet tablet Urology losartan losartan No losartan [place] st[place] 100 mg 100 mg 100 mg [facility] tablet tablet tablet Urology losartan losartan No losartan Karin ston potassium potassium potassium [facility] (bulk) (bulk) (bulk) Urology pantoprazol pantoprazol No pantoprazo [place] e e le [facility] pantoprazol pantoprazol No pantoprazo [place] e 40 mg e 40 mg le 40 mg [facility] tablet,jean tablet,jean tablet,del Urology yed release yed release ayed release pravastatin pravastatin No pravastati [place] [facility] pravastatin pravastatin No pravastati [place] 80 mg 80 mg n 80 mg [facility] tablet tablet tablet Urology sotalol 80 sotalol 80 No sotalol 80 [place] mg tablet mg tablet mg tablet [facility] Take 1 Take 1 Take 1 Urology tablet tablet tablet twice a day twice a day twice a by oral by oral day by route. route. oral route. sulfamethox sulfamethox No sulfametho [place] azole 800 azole 800 xazole 800 [facility] mg-trimetho mg-trimetho mg-trimeth Urology prim 160 mg prim 160 mg oprim 160 tablet Take tablet Take mg tablet 1 tablet 1 tablet Take 1 every 12 every 12 tablet hours by hours by every 12 oral route oral route hours by for 3 days. for 3 days. oral route for 3 days. tamsulosin tamsulosin No tamsulosin [place] 0.4 mg 0.4 mg 0.4 mg [facility] capsule capsule capsule Urolog y TAKE ONE TAKE ONE TAKE ONE CAPSULE BY CAPSULE BY CAPSULE BY MOUTH DAILY MOUTH DAILY MOUTH DAILY amlodipine amlodipine No amlodipine [facility] Urolog Immunizations Ordered Filled Immunization Date Status Comments [facility] e Immunization Name Name influenza, influenza, 2021-05-25 Completed [facility] injectable, injectable, 00:00:00 Urology quadrivalent quadrivalent influenza, influenza, 2021-05-25 Completed [facility] injectable, injectable, 00:00:00 Urology quadrivalent quadrivalent influenza, influenza, 2021-05-25 Completed [facility] injectable, injectable, 00:00:00 Urology quadrivalent quadrivalent influenza, influenza, 2021-05-25 Completed [facility] injectable, injectable, 00:00:00 Urology quadrivalent quadrivalent influenza, influenza, 2021-05-25 Completed [facility] injectable, injectable, 00:00:00 Urology quadrivalent quadrivalent influenza, influenza, Unknown Completed [facility] injectable, injectable, Urology quadrivalent quadrivalent PFIZER COVID-19 Unknown Completed [facility] PFIZER COVID-19 Unknown Completed [facility] Vital Signs Vital Name Observation Time Observation Value Comments Source Height 2023-03-09 00:00:00 68 [in_i] [facility] Urology Body Weight 2023-03-09 00:00:00 188 [lb_av] [facility] Urolog BMI (Body Mass 2023-03-09 00:00:00 28.6 kg/m2 [facility] Height 2022-12-30 00:00:00 68 [in_i] [facility] Urolog Height 2022-12-01 00:00:00 68 [in_i] [facility] BP Diastolic 2022-05-17 00:00:00 66 mm[Hg] [facility] Urology Height 2022-05-17 00:00:00 68 [in_i] [facility] Urology BMI (Body Mass 2022-05-17 00:00:00 28.6 kg/m2 [facility] Index) Urology BP Systolic 2022-05-17 00:00:00 115 [facility]Hg[facility] 2022-05-17 00:00:00 188 [lb_av] [facility] Heart rate 2023-06-14 20:59:00 76 /min [facility] Systolic blood 2023-06-14 19:37:54 120 mm[Hg] [facility] pressure Diastolic blood 2023-06-14 19:37:54 65 mm[Hg] [facility] pressure Body temperature 2023-06-14 19:37:54 36.61 Martine [facility] Oxygen saturation in 2023-06-14 19:37:54 99 /min [facility] [place] [place] Arterial blood by Pulse oximetry Respiratory rate 2023-06-14 18:59:00 17 /min [facility] Body height 2023-06-13 18:08:00 170.2 cm [facility] Body weight 2023-06-13 18:08:00 83.598 kg [facility] BMI 2023-06-13 18:08:00 28.87 kg/m2 [facility] Procedures Procedure Date / Time Performing Clinician Source Performed BASIC METABOLIC PANEL 2023-06-14 09:42:[address] [facility] ESTIMATED GFR 2023-06-14 09:42:00 Adriana Rivas [facility] MAGNESIUM LEVEL 2023-06-14 09:42:00 ElizabethAdriana taylor [facility] [place] AN ELECTIVE 2023-06-13 19:51:00 Dann Talbert spital SUPRAGLOTTIC AIRWAY CYSTO, SALINE TURP 2023-06-13 19:41:00 Adriana Rivas [facility] (BIPOLAR) SURGICAL PATHOLOGY 2023-06-13 14:17:00 Adriana Rivas [facility] REQUEST Transurethral Resection 2023-06-13 00:00:00 Tracey Alanis of Prostate (Surg) Urology URINE CULTURE 2023-05-30 17:17:00 Em [facility] ECG PRE/POST OP 2023-05-30 16:53:[facility] [place] [place] PARTIAL THROMBOPLASTIN 2023-05-30 16:44:00 María Strickland [facility] TIME (PTT) PROTHROMBIN TIME WITH INR 2023-05-30 16:44:00 Em [facility] CBC WITH PLATELET AND 2023-05-30 16:44:00 Em [place] [facility] DIFFERENTIAL COMPREHENSIVE METABOLIC 2023-05-30 16:44:00 Em Maríamadelaine Khoury [facility] PANEL HEMOGLOBIN A1C 2023-05-30 16:44:00 Em, [facility] ESTIMATED GFR 2023-05-30 16:44:00 Em, [facility] URINALYSIS SCREEN AND 2023-05-30 16:40:00 [facility] MICROSCOPY, WITH REFLEX TO CULTURE [id number] 2023-02-25 00:00:00 CHAKR.05 [facility] [id number] 2023-02-25 00:00:00 CHAKR.05 [facility] [id number] 2023-02-25 00:00:00 CHAKR.05 [facility] XR CERVICAL SPINE 2 OR 3 2022-12-28 16:30:[address] [facility] [place] VW XR LUMBAR SPINE 2 OR 3 VW 2022-12-28 16:30:[address] [facility] [place] [place] Procedure on Gallbladder [facility] Urology Colonoscopy [facility] U[facility] Plan of Care Planned Activity Planned Date Details Comments Source Future Scheduled 2023-06-[address] [facility] [place] Test 01:19:45 malignant neoplasm of colon (procedure) [code = 787144561] Future Scheduled 2023-06-[address] [facility] [place] Test 01:19:45 malignant neoplasm of colon (procedure) [code = 101001287] Future Scheduled 2023-06-[address] [facility] [place] Test 01:19:45 malignant neoplasm of colon (procedure) [code = 940519529] Future Scheduled 2023-06-15 Hepatitis C screening [facility] Test 01:19:45 (procedure) [code = 248637321] Future Scheduled 2023-06-15 [facility] Test 01:19:45 malignant neoplasm of colon (procedure) [code = 573611811] Future Scheduled 2023-06-15 [facility] Test 01:19:45 malignant neoplasm of colon (procedure) [code = 220875171] Future Scheduled 2023-06-15 SHINGLES VACCINES (1 Met [facility] Test 01:19:45 of 2) [code = SHINGLES VACCINES (1 of 2)] Future Scheduled 2023-06-15 65+ PNEUMOCOCCAL [facility] Test 01:19:45 VACCINE (1 - PCV) [code = 65+ PNEUMOCOCCAL VACCINE (1 - PCV)] Future Scheduled 2023-06-15 COVID-19 VACCINE (3 - [facility] Test 01:19:45 season) [code = COVID-19 VACCINE (3 - season)] Future Scheduled 2023-06-15 INFLUENZA VACCINE [facility] Test 01:19:45 (#1) [code = INFLUENZA VACCINE (#1)] Diagnostic Test 2023-03-09 urinalysis, dipstick [place] [facility] Pending 00:00:00 [code = urinalysis, Urology dipstick] Diagnostic Test 2023-03-09 PSA, serum or plasma [place] [facility] Pending 00:00:00 [code = PSA, serum or Urolog y plasma] Future Scheduled 2023-02-[address] [facility] [place] Test 14:16:18 malignant neoplasm of colon (procedure) [code = 640814584] Future Scheduled 2023-02-[address] [facility] [place] Test 14:16:18 malignant neoplasm of colon (procedure) [code = 448022622] Future Scheduled 2023-02-23 Screening for [facility] Test 14:16:18 malignant neoplasm of colon (procedure) [code = 168137194] Future Scheduled 2023-02-23 Hepatitis C screening [facility] Test 14:16:18 (procedure) [code = 772959337] Future Scheduled 2023-02-23 Screening for [facility] Test 14:16:18 malignant neoplasm of colon (procedure) [code = 996117091] Future Scheduled 2023-02-23 Screening for [facility] Test 14:16:18 malignant neoplasm of colon (procedure) [code = 392309292] Future Scheduled 2023-02-23 SHINGLES VACCINES (1 Met [facility] Test 14:16:18 of 2) [code = SHINGLES VACCINES (1 of 2)] Future Scheduled 2023-02-23 65+ [facility] 14:16:18 VACCINE (1 - PCV) [code = 65+ PNEUMOCOCCAL VACCINE (1 - PCV)] Future Scheduled 2023-02-23 COVID-19 VACCINE (3 - [facility] Test 14:16:18 Pfizer series) [code = COVID-19 VACCINE (3 - Pfizer series)] Future Scheduled 2023-02-23 INFLUENZA VACCINE Method [facility] Test 14:16:18 [code = INFLUENZA VACCINE] Future Scheduled 2023-02-09 Screening for [facility] Test 14:09:01 malignant neoplasm of colon (procedure) [code = 674602648] Future Scheduled 2023-02-09 Screening for [facility] Test 14:09:01 malignant neoplasm of colon (procedure) [code = 768564351] Future Scheduled 2023-02-09 Screening for [facility] Test 14:09:01 malignant neoplasm of colon (procedure) [code = 700252650] Future Scheduled 2023-02-09 Hepatitis C screening [facility] Test 14:09:01 (procedure) [code = 036649689] Future Scheduled 2023-02-09 Screening for [facility] Test 14:09:01 malignant neoplasm of colon (procedure) [code = 469851300] Future Scheduled 2023-02-09 Screening for [facility] Test 14:09:01 malignant neoplasm of colon (procedure) [code = 596023985] Future Scheduled 2023-02-09 SHINGLES VACCINES (1 Met [facility] Test 14:09:01 of 2) [code = SHINGLES VACCINES (1 of 2)] Future Scheduled 2023-02-09 65+ PNEUMOCOCCAL [facility] Test 14:09:01 VACCINE (1 - PCV) [code = 65+ PNEUMOCOCCAL VACCINE (1 - PCV)] Future Scheduled 2023-02-09 COVID-19 VACCINE (3 - [facility] Test 14:09:01 Pfizer series) [code = COVID-19 VACCINE (3 - Pfizer series)] Future Scheduled 2023-02-09 INFLUENZA VACCINE Method [facility] Test 14:09:01 [code = INFLUENZA VACCINE] Future Scheduled 2023-02-[address] [facility] [place] Test 14:09:01 malignant neoplasm of colon (procedure) [code = 526285353] Future Scheduled 2023-02-[address] [facility] [place] Test 14:09:01 malignant neoplasm of colon (procedure) [code = 311750683] Future Scheduled 2023-02-[address] [facility] [place] Test 14:09:01 malignant neoplasm of colon (procedure) [code = 019692043] Future Scheduled 2023-02-09 Hepatitis C screening [facility] Test 14:09:01 (procedure) [code = 220116629] Future Scheduled 2023-02-[address] [facility] [place] Test 14:09:01 malignant neoplasm of colon (procedure) [code = 256244630] Future Scheduled 2023-02-[address] [facility] [place] Test 14:09:01 malignant neoplasm of colon (procedure) [code = 443466534] Future Scheduled 2023-02-09 SHINGLES VACCINES (1 Met [facility] Test 14:09:01 of 2) [code = SHINGLES VACCINES (1 of 2)] Future Scheduled 2023-02-09 65+ [facility] Test 14:09:01 VACCINE (1 - PCV) [code = 65+ PNEUMOCOCCAL VACCINE (1 - PCV)] Future Scheduled 2023-02-09 COVID-19 VACCINE (3 - [facility] Test 14:09:01 Pfizer series) [code = COVID-19 VACCINE (3 - Pfizer series)] Future Scheduled 2023-02-09 INFLUENZA VACCINE Method [facility] Test 14:09:01 [code = INFLUENZA VACCINE] Encounters Start End Encounter Admission Attending Care Care Encounter Source Date/Time Date/Time Type Type Clinicians Facility Department ID 2023-06-13 2023-06-[address]840.1 [id number] Methodi 11:59:00 15:22:00 Encounter Adriana Montenegro 71286.1.1 [facility] 3.430.2.7 Hospit a .3.906897 l .8 2023-06-13 2023-06-14 Outpatient ELIZABETH [facility] [id number] [place] 00:00:00 00:00:00 ADRIANA Pearson [facility] 2023-06-13 2023-06-13 Anesthesia Abbe Carrizales 1.2.840.1 [id number] Methodi 13:42:00 15:14:00 María Stephenson 39810.1.[address] 3.430.2.7 Hospit a .3.186447 l .8 2023-06-13 2023-06-13 Surgery Elizabeth 1.2.840.1 [id number] Methodi 13:30:00 14:50:00 Adriana Montenegro 63895.1.1 385 s t 3.430.2.7 Hospit a .3.845338 l .8 2023-06-13 2023-06-13 Adriana [facility] [place] - [id number] [facility] 00:00:00 00:00:00 Elizabeth [place] Zena mcclellan MD: [address] [facility] [place] [address] [facility], [place] [address] , Ph. 2023-05-30 2023-05-30 Pre-Admiss Adriana RivasJuan 1.2.840.1 [id number] Methodi 10:20:00 11:20:00 María Orta 71869.1.[address] Testing 3.430.2.7 Hospit a .3.303177 l .8 2023-05-30 2023-05-30 Outpatient ELIZABETH [facility] [id number] [place] 00:00:00 00:00:00 ADRIANA Tao [facility] 2023-04-27 2023-04-27 Treatment Femi Marina 1.2.840.1 104 [id number] Methodi 14:00:00 15:52:44 Jarvis Waddell 43576.1.[address] 3.430.2.7 Hospit a .3.303342 l .8 2023-04-27 2023-04-27 Outpatient NADYASALINA, [facility] [id number] [place] 00:00:00 00:00:00 FEMI [address] 2023-04-20 2023-04-20 Treatment Femi Marina 1.2.840.1 104 [id number] Methodi 14:00:00 16:46:55 Jarvis Waddell 30462.1.[address] 3.430.2.7 Hospit a .3.498634 l .8 2023-04-20 2023-04-20 Plan of 1.2.840.1 [id number] Methodi 00:00:00 00:00:[address] Documentat 3.430.2.7 Hos travis ion .3.961167 l .8 2023-04-20 2023-04-20 [facility] [id number] [place] 00:00:00 00:00:[address] FEMI [address] 2023-04-13 2023-04-13 Treatment Femi Marina 1.2.840.1 104 [id number] Methodi 14:00:00 15:00:00 Jarvis Waddell 51014.1.[address] 3.430.2.7 Hospit a .3.398509 l .8 2023-04-13 2023-04-13 Outpatient NADYASALINA, [facility] [id number] 391 [place] 00:00:00 00:00:00 FEMI [address] 2023-04-06 2023-04-06 Treatment Femi Marina 1.2.840.1 104 [id number] Methodi 14:00:00 15:00:00 Jarvis Waddell 14839.1.[address] 3.430.2.7 Hospit a .3.219854 l .8 2023-04-06 2023-04-06 Outpatient SALAS, [facility] [id number] 520 [place] 00:00:00 00:00:00 FEMI [address] 2023-03-30 2023-03-30 Treatment Femi Marina 1.2.840.1 104 [id number] Methodi 14:00:00 15:00:00 Jarvis Waddell 17355.1.[address] 3.430.2.7 Hospit a .3.640024 l .8 2023-03-30 2023-03-30 Outpatient SALAS [facility] [id number] 520 [place] 00:00:00 00:00:00 FEMI [address] 2023-03-21 2023-03-21 Outpatient Goldfarb_R [facility] 4794 [place] 00:00:00 00:00:00 27603 [facility] 2023-03-16 2023-03-16 Treatment Femi Marina 1.2.840.1 104 [id number] Methodi 14:00:00 15:12:12 Jarvis Waddell 26572.1.[address] 3.430.2.7 Hospit a .3.792082 l .8 2023-03-16 2023-03-16 [facility] [id number] [address] [place] [address] 00:00:00 00:00:00 FEMI [address] 2023-03-11 2023-03-11 Pre-Admiss Elizabeth, 1.2.840.1 [id number] 2 [id number] Methodi 13:00:00 14:00:00 ion Adriana Montenegro 51064.1.1 034 s t Testing 3.430.2.7 Hospit a .3.626852 l .8 2023-03-11 2023-03-11 Outpatient Goldfarb_R [facility] 4794 [place] 00:00:00 00:00:00 23917 [facility] 2023-03-10 2023-03-10 Treatment Femi Marina 1.2.840.1 104 [id number] Methodi 14:00:00 14:50:48 Jarvis Waddell 87957.1.[address] 3.430.2.7 Hospit a .3.099404 l .8 2023-03-10 2023-03-10 Plan of 1.2.840.1 [id number] Methodi 00:00:00 00:00:[address] Documentat 3.430.2.7 Hos travis ion .3.564017 l .8 2023-03-10 2023-03-10 Outpatient SALAS [facility] [id number] [place] 00:00:00 00:00:00 FEMI Carson [facility] 2023-03-09 2023-03-09 Outpatient Goldfarb_R [facility] 4794 [place] 00:00:00 00:00:00 06013 [facility] 2023-03-09 2023-03-09 Outpatient Goldfarb_R [facility] 4794 [place] 00:00:00 00:00:00 31989 [facility] 2023-03-09 2023-03-09 Adriana [facility] - [id number] [facility] 00:[facility]:00 00:00:00 Mac Rivas MD: [address] [facility] [place] [address], [place] [address] , Ph. 2023-02-25 2023-02-[address] [facility] ICU BP00 [id number] [facility] 06:22:00 14:15:00 Gabriela tran [facility] 2023-02-23 2023-02-23 Treatment Femi Marina.2.840.1 104 [id number] Methodi 14:00:00 15:00:00 Jarvis Waddell 61027.1.[address] 3.430.2.7 Hospit a .3.558324 l .8 2023-02-23 2023-02-23 Treatment Janie MARINA2.840.1 [id number] [id number] [place] 00:00:00 00:00:00 FEMI 75737.1.1 [address] .3.491450 .8 2023-02-16 2023-02-16 Treatment Femi Marina.2.840.1 104 [id number] Methodi 14:00:00 15:00:00 Mauriliochalinoedgar Jarvis 26452.1.[address] 3.430.2.7 Hospit a .3.202401 l .8 2023-02-16 2023-02-16 Treatment Femi Marina.2.840.1 104 976072 [id number] Methodi 14:00:00 15:00:00 Jarvis Waddell 12547.1.[address] 3.430.2.7 Hospit a .3.552226 l .8 2023-02-15 2023-02-[address] [facility] DAYS BP0 [id number] [facility] 12:57:00 12:57:00 w, 73 [facility] 2023-02-09 2023-02-09 Treatment Femi Marina.2.840.1 104 [id number] Methodi 14:00:00 15:00:00 Jarvis Waddell 31351.1.[address] 3.430.2.7 Hospit a .3.857784 l .8 2023-02-09 2023-02-09 Treatment Femi Marina.2.840.1 104 080803 [id number] Methodi 14:00:00 15:00:00 Jarvis Waddell 32753.1.[address] 3.430.2.7 Hospit a .3.568468 l .8 2023-01-31 2023-01-31 Evaluation Femi Marina 1.2.840.1 10 7395013 [id number] Methodi 13:00:00 14:04:42 Jarvis Waddell 37460.1.[address] 3.430.2.7 Hospit a .3.816440 l .8 2023-01-31 2023-01-31 Evaluation Femi Marina 1.2.840.1 10 [id number] Methodi 13:00:00 14:04:42 Jarvis Waddell 73131.1.[address] 3.430.2.7 Hospit a .3.338294 l .8 2023-01-31 2023-01-31 Plan of 1.2.840.1 [id number] 0028 Methodi 00:00:00 00:00:[address] Documentat 3.430.2.7 Hos travis ion .3.858687 l .8 2023-01-31 2023-01-31 Plan of 1.2.840.1 [id number] 8367 Methodi 00:00:00 00:00:[address] Documentat 3.430.2.7 Hos travis ion .3.611905 l .8 2023-01-08 2023-01-08 Outpatient Goldfarb_R [facility] [address] [place] 00:00:00 00:00:00 51819 [facility] 2023-01-04 2023-01-04 Orders Steven, 1.2.840.1 [id number] Methodi 00:00:00 00:00:00 Only [place] 51117.1.[address] 3.430.2.7 Hospit a .3.090287 l .8 2023-01-04 2023-01-04 Orders Harris, 1.2.840.1 [id number] 7737 Methodi 00:00:00 00:00:00 Only [place] [address]28.1.[address] 3.430.2.7 Hospit a .3.904495 l .8 2023-01-03 2023-01-03 Telephone [place], 1.2.840.1 [id number] 2099 [id number] Methodi 00:00:00 00:00:00 Femi Tejada 77330.1.1 850 s t 3.430.2.7 Hospit a .3.377672 l .8 2023-01-03 2023-01-03 Telephone [place], 1.2.840.1 [id number] 2100 [id number] Methodi 00:00:00 00:00:00 Femi Tejada 69232.1.1 850 s t 3.430.2.7 Hospit a .3.554076 l .8 2022-12-31 2022-12-31 [facility] [address] [place] 00:00:00 00:00:00 32904 [facility] 2022-12-30 2022-12-30 Outpatient Goldfarb_R [facility] 4[address] [place] 00:00:00 00:00:00 01115 [facility] 2022-12-30 2022-12-30 Outpatient Goldfarb_R [facility] 4[address] [place] 00:00:00 00:00:00 12897 [facility] 2022-12-30 2022-12-30 [facility] [place] - [id number] Gayle coley 00:00:00 00:00:00 Mac Rivas MD: [address] [facility]rology Yulisa Urology [facility] [address], [place] [address] , Ph. 2022-12-28 2022-12-28 Office Salas, 1.2.840.1 [id number] Methodi 10:30:00 11:56:19 Visit Femi Tejada 84921.1.1 394 s t 3.430.2.7 Hospit a .3.041009 l .8 2022-12-28 2022-12-28 Office Salas, 1.2.840.1 [id number] 1938 Methodi 10:30:00 11:56:19 Visit Femi Tejada 76830.1.1 394 s t 3.430.2.7 Hospit a .3.935921 l .8 2022-12-28 2022-12-28 Travel 1.2.840.1 1.2.276.504 6116 [id number] Methodi 00:00:00 00:00:[address] 3.430.2.7 0.2.7.3.698 Ho spita .3.532692 084.8 l .8 2022-12-28 2022-12-28 Memo Harris, 1.2.840.1 [id number] 5191 Methodi 00:00:00 00:00:00 Only [place] [address]359.1.[address] 3.430.2.7 Hospit a .3.750788 l .8 2022-12-28 2022-12-28 Orders Harris, 1.2.840.1 [id number] 9810 Methodi 00:00:00 00:00:00 Only [place] [address]50.1.[address] 3.430.2.7 Hospit a .3.658125 l .8 2022-12-28 2022-12-28 Travel 1.2.840.1 1.2.460.003 7182 201920 Methodi 00:00:00 00:00:[address] 3.430.2.7 0.2.7.3.698 Ho spita .3.279531 084.8 l .8 2022-12-28 2022-12-28 Orders Harris, 1.2.840.1 [id number] 4321 Methodi 00:00:00 00:00:00 Only [place] [address]1660.1.[address] 3.430.2.7 Hospit a .3.384743 l .8 2022-12-28 2022-12-28 Orders Harris, 1.2.840.1 [id number] [id number] 1415 Methodi 00:00:00 00:00:00 Only [place] 15475.1.[address] 3.430.2.7 Hospit a .3.150868 l .8 2022-12-28 2022-12-28 [facility] [id number] 406 [place] 00:00:00 00:00:[address] FEMI [address] 2022-12-14 2022-12-14 Travel 1.2.840.1 1.2.278.980 4782 123569 Methodi 00:00:00 00:00:[address] 3.430.2.7 0.2.7.3.698 Ho spita .3.244044 084.8 l .8 2022-12-14 2022-12-14 Travel 1.2.840.1 1.2.473.318 5261 047549 Method 00:00:00 00:00:[address] 3.430.2.7 0.2.7.3.698 Ho spita .3.066649 084.8 l .8 2022-12-01 2022-12-01 Outpatient Goldfarb_R [facility] [address] [place] 00:00:00 00:00:00 14568 [facility] 2022-12-01 2022-12-01 Outpatient Goldfarb_R [facility] 4[address] [place] 00:00:00 00:00:00 54143 [facility] 2022-12-01 2022-12-01 [facility] [place] - [id number] Gayle fallonpascual 00:00:00 00:00:00 Mac Rivas MD: [address] [facility] [address], [place] [address] , Ph. 2022-09-18 2022-09-19 Inpatient TIARA Rider [facility] MEDI.01 [id number] [facility] 05:18:00 12:02:[address] 2022-07-28 2022-07-28 Outpatient Goldfarb_R [facility] [address] [place] 00:00:00 00:00:00 25995 [facility] 2022-07-22 2022-07-22 Outpatient Goldfarb_R [facility] [address] [place] 00:00:00 00:00:00 39328 [facility] 2022-07-07 2022-07-07 Outpatient Goldfarb_R [facility] [address] [place] 00:00:00 00:00:00 82290 [facility] 2022-06-10 2022-06-10 Outpatient Goldfarb_R [facility] [address] [place] 00:00:00 00:00:00 12149 [facility] 2022-06-02 2022-06-02 Outpatient Goldfarb_R [facility] [address] [place] 00:00:00 00:00:00 54730 [facility] 2022-05-25 2022-05-25 Outpatient Goldfarb_R [facility] U [address] [place] 00:00:00 00:00:00 75143 [facility] 2022-05-21 2022-05-21 Outpatient Goldfarb_R [facility] U [address] [place] 00:00:00 00:00:00 53861 [facility] 2022-05-21 2022-05-21 Adriana [facility] [place] - [id number] [facility] 00:00:00 00:00:00 Mac Rivas MD: 4219 [facility] Bhavesh Urology [address], - [facility] [address] , Ph. 2022-05-18 2022-05-18 Outpatient Goldfarb_R U U [address] [place] 00:00:00 00:00:00 40937 [facility] 2022-05-17 2022-05-17 Outpatient Goldfarb_R [facility] U [address] [place] 00:00:00 00:00:00 23182 [facility] 2022-05-17 2022-05-17 Adriana [facility] [place] - [id number] [facility] 00:00:00 00:00:00 Mac Rivas MD: 6560 [facility] Yulisa Urology CHAL[facility] [address], [place] [address] , Ph. 2022-04-26 2022-04-26 Outpatient Goldfarb_R U U [address] [place] 00:00:00 00:00:00 54159 [facility] 2022-03-17 2022-03-17 Outpatient Goldfarb_R U U [address] [place] 00:00:00 00:00:00 02360 [facility] 2021-09-14 2021-09-15 Inpatient OMKAR Patel TELE [id number] [facility] 07:17:00 10:16:00 Ramon Alejandra [facility] Results Test Description Test Time Test Comments Results Result Comments Source Surgical pathology request 2023-06-15 21:25:04 Test Item Value Reference Range Interpretation Comme nts Case number (test code = 5062489) [id number] Surgical pathology report (test code = See link below for PDF Lab R eport 3683) Result status (test code = 8667445) This is Final Report for [id number] [facility]2023-11-20 19:51:00Dann aTlbert 06/13/2023 1:57 PMAirway Date/Time: 06/13/2023 1:51 PM Location: OR Performed by: anesthesia residentAnesthesiologist: Abbe Carrizalesesident/INTERIOR SYSTEMS CARPENTER/AA: Armando Talbertuthorized by: Abbe Carrizales Senior Stereo Compiler Team Lead Attestation: I was present and participated in the placement of the airway performed with the resident.Attesting provider: Abbe Carrizales Urgency: ElectiveDifficult Airway: No Preoxygenated with 100% O2: Yes C-spine Precautions Maintained Throughout: Yes Mask Ventilation: Not attemptedFinal Airway Type: Supraglottic airwayFinal LMA: I-GelLMA Size: 4 Atraumatic, pre-procedural dentition preserved Urine [id number] 21:12:00 Test Item Value Reference Range Interpretation Comments Urine culture Mixed stevie Specimen isolate (test <=10-3 col/cc InformationSp ecimen code = 59348-5) Source: Urin eSpecimen Site[facility] [id number] 16:57:53 Test Item Value Reference Range Interpretation Comments Ventricular rate (test 64 code = 253) Atrial rate (test code = 64 255) UT interval (test code = 138 266) QRSD interval (test code 94 = 260) QT interval (test code = 424 264) QTC interval (test code 437 = 265) P axis 1 (test code = 33 267) QRS axis 1 (test code = 69 268) T wave axis (test code = 70 270) EKG impression (test Normal sinus code = 273) rhythm-Normal ECG-No previous ECGs available-Electronica lly Signed By Hao Nguyen MD ([id number]) on 05/30/2023 10:57:43 [facility] - [id number] 09:31:00 Test Item Value Reference Range Interpretation Comments leukocytes (test code negative neg = leukocytes) urobilinogen (test 0.2 E.U./dL sm amt (.5-1mg/dL) code = urobilinogen) protein (test code = negative See_Comment [Autom ated protein) message] The sy stem which generated this result transmitted reference range : <=150 mg/d. The reference range was not used to interpret this result as normal/abnormal . pH (test code = pH) 5.5 4.5-8 blood (test code = negative See_Comment [Automat ed blood) message] The sy stem which generated this result transmitted reference range : <=3 RBC. The reference range was not used to interpret this result as normal/abnormal . specific gravity 1.010 1.005-1.025 (test code = specific gravity) ketone (test code = negative none ketone) bilirubin (test code negative neg = bilirubin) glucose (test code = 100 mg/dL See_Comment [Autom ated glucose) message] The sy stem which generated this result transmitted reference range : <=130 mg/d. The reference range was not used to interpret this result as normal/abnormal . color (test code = yellow yellow color) clarity (test code = clear clear or cloudy clarity) nitrite (test code = negative neg nitrite) [facility] UrologyVIT[facility] [id number] 12:14:00 Test Item Value Reference Range Interpretation Comments VITAMIN B12 (test code = VITB12) 315 pg/ml 180-914 N FOLIC [id number] 12:14:00 Test Item Value Reference Range Interpretation Comments FOLIC ACID (test code = FOL) 3.88 ng/ml 6.59-20.0 L VITAMIN [id number] 12:14:00 Test Item Value Reference Range Interpretation Comments VITAMIN B12 (test code = VITB12) 315 pg/ml 180-914 FOLIC [id number] 12:14:00 Test Item Value Reference Range Interpretation Comments FOLIC ACID (test code = FOL) 3.88 ng/ml 6.59-20.0 L FE W/TOTAL IRON BINDING [id number] 17:23:00 Test Item Value Reference Range Interpretation Comments IRON (test code = IRON) 92 mcg/dL 50-175 N TOTAL IRON BINDING CAPACITY (test 286 mcg/dL 250-425 N code = TIBC) IRON SATURATION (test code = 32 % 20-50 N FESAT) [id number] 17:23:00 Test Item Value Reference Range Interpretation Comments FERRITIN (test code = MARIA ELENA) 684.5 ng/mL 22.0-322.0 H RETIC [id number] 17:03:00 Test Item Value Reference Range Interpretation Comments RETIC CT AUTOMATED (test code 2.00 % 0.50-1.50 H = RETICA) RETIC CT ABSOLUTE (test code = 54.80 x10 3/uL 20.00-90.00 N RET#) BASIC METABOLIC [id number] 04:05:00 Test Item Value Reference Range Interpretation Comments SODIUM (test code 139 mmol/L 136-145 N = NA) POTASSIUM (test 4.0 mmol/L 3.5-5.1 N code = K) CHLORIDE (test 108 mmol/l 98-107 H code = CL) CARBON DIOXIDE 22 mmol/L 20-31 N (test code = CO2) GLUCOSE (test code 116 ng/dL 74-106 H = GLU) BLOOD UREA 10 mg/dL 9-23 N NITROGEN (test code = BUN) GLOMERULAR >=60 max >60 The Glomerular FILTRATION RATE estimate mL/min Filtratio n Rate is a (test code = GFR) calculated parameterbased on serum Creatinin e, patient age and sex. GFR valuesless than 60 mL/min/1.73 square meters are kimberly cative ofChronic Kidne y Disease. Values less than 15 mL/min/1.73squa re meters indicate Kidney failure. The calculation for GFR is based on the CK D-EPI (2020) calculat ion. This formulais race indifferent and is the recommended formula for GFR by the [employer] for Adults.The GFR will not calculate i f the sex is unknown or if thepatient's ag e is <18 years. CREATININE (test 0.70 mg/dL 0.70-1.30 N code = CREAT) CALCIUM (test code 8.8 mg/dL 8.7-10.4 N = CA) [id number] 04:05:00 Test Item Value Reference Range Interpretation Comments PHOSPHOROUS (test code = PHOS) 2.7 mg/dL 2.4-5.1 N [id number] 04:05:00 Test Item Value Reference Range Interpretation Comments MAGNESIUM (test code = MAG) 1.8 mg/dL 1.6-2.6 N CBC W/AUTO [id number] 03:58:00 Test Item Value Reference Range Interpretation Comments WHITE BLOOD CELL (test code = 5.3 x10 3/uL 4.8-10.8 N WBC) RED BLOOD CELL (test code = 2.86 x10 6/uL 4.70-6.10 L RBC) HEMOGLOBIN (test code = HGB) 10.1 g/dL 14.0-18.0 L HEMATOCRIT (test code = HCT) 29.1 % 42.0-52.0 L MEAN CELL VOLUME (test code = 101.7 fL 80.0-94.0 H MCV) MEAN CELL HGB (test code = MCH) 35.3 pg 27-31 H MEAN CELL HGB CONCENTRATION 34.7 G/DL 33-36.5 N (test code = MCHC) RED CELL DISTRIBUTION WIDTH 12.6 % 12.9-16.9 L (test code = RDW) PLATELET COUNT (test code = 216 x10 3/uL 150-440 N PLT) MEAN PLATELET VOLUME (test code 8.9 fL 8.9-12.4 N = MPV) NEUTROPHIL % (test code = NT%) 69.2 % 42.2-75.2 N LYMPHOCYTE % (test code = LY%) 16.7 % 20.5-51.1 L MONOCYTE % (test code = MO%) 10.8 % 1.7-9.3 H EOSINOPHIL % (test code = EO%) 1.9 % 0.0-7.0 N BASOPHIL % (test code = BA%) 0.4 % 0-2.5 N NEUTROPHIL # (test code = NT#) 3.64 x10 3/uL 1.80-7.70 N LYMPHOCYTE # (test code = LY#) 0.88 x10 3/uL 1.00-4.80 L MONOCYTE # (test code = MO#) 0.57 x10 3/uL 0.00-0.80 N EOSINOPHIL # (test code = EO#) 0.10 x10 3/uL 0.00-0.45 N BASOPHIL # (test code = BA#) 0.02 x10 3/uL 0.0-0.20 N BASIC METABOLIC [id number] 00:53:00 Test Item Value Reference Range Interpretation Comments SODIUM (test code 142 mmol/L 136-145 N = NA) POTASSIUM (test 3.9 mmol/L 3.5-5.1 N code = K) CHLORIDE (test 109 mmol/l 98-107 H code = CL) CARBON DIOXIDE 23 mmol/L 20-31 N (test code = CO2) GLUCOSE (test code 110 ng/dL 74-106 H = GLU) BLOOD UREA 11 mg/dL 9-23 N NITROGEN (test code = BUN) GLOMERULAR >=60 max >60 The Glomerular FILTRATION RATE estimate mL/min Filtratio n Rate is a (test code = GFR) calculated parameterbased on serum Creatinin e, patient age and sex. GFR valuesless than 60 mL/min/1.73 square meters are kimberly cative ofChronic Kidne y Disease. Values less than 15 mL/min/1.73squa re meters indicate Kidney failure. The calculation for GFR is based on the CK D-EPI (2020) calculat ion. This formulais race indifferent and is the recommended formula for GFR by the National Kidney Foundation for Adults.The GFR will not calculate i f the sex is unknown or if thepatient's ag e is <18 years. CREATININE (test 0.70 mg/dL 0.70-1.30 N code = CREAT) CALCIUM (test code 8.2 mg/dL 8.7-10.4 L = CA) [id number] 00:53:00 Test Item Value Reference Range Interpretation Comments PHOSPHOROUS (test code = PHOS) 3.1 mg/dL 2.4-5.1 N [id number] 00:53:00 Test Item Value Reference Range Interpretation Comments MAGNESIUM (test code = MAG) 1.9 mg/dL 1.6-2.6 N RECOLLECTBASIC METABOLIC [id number] 21:13:00 Test Item Value Reference Range Interpretation Comments SODIUM (test code = 137 mmol/L 136-145 N NA) POTASSIUM (test 3.9 mmol/L 3.5-5.1 N code = K) CHLORIDE (test code 107 mmol/l 98-107 N = CL) CARBON DIOXIDE 24 mmol/L 20-31 N (test code = CO2) GLUCOSE (test code Test not performed 74-106 SPE CIMEN QNS. = GLU) ng/dL COULD NOT COMPLETE TESTIN G. BLOOD UREA NITROGEN Test not performed 9-23 (test code = BUN) mg/dL GLOMERULAR Test not performed >60 FILTRATION RATE mL/min (test code = GFR) CREATININE (test Test not performed 0.70-1.30 code = CREAT) mg/dL CALCIUM (test code Test not performed 8.7-10.4 = CA) mg/dL [id number] 21:13:00 Test Item Value Reference Range Interpretation Comments PHOSPHOROUS (test code = Test not performed 2.4-5.1 PHOS) mg/dL [id number] 21:13:00 Test Item Value Reference Range Interpretation Comments MAGNESIUM (test code = Test not performed 1.6-2.6 MAG) mg/dL PROTHROMBIN [id number] 20:57:00 Test Item Value Reference Range Interpretation Comments PROTHROMBIN TIME 11.7 SECONDS 10.3-12.9 N PATIENT (test code = PTP) INTERNATIONAL 0.99 INR UNIT 0.9-1.11 N The INR is us eful only NORMAL RATIO (test for monit oring code = INR) anticoagulant therapy.It may be unreliable in t he initial phase o f antigoagulation and in unstable patien ts. Indication for Anticoagulation Recommended INR 1. Prevention of v enous thomboembolism 2.0-3.0in high- risk patients; treat ment of venousthrombosi s and pulmonary embol ism aftera course o f heparin; preven tion of systemicembolis m in a variety of cond itions, including atria l fibrillation an d prothetic tissu e heart valves, 2. Pros thetic mechanical hear t valves; 2.5-3.5recurren t systemic emboli sm. THROMBOPLASTIN TIME [id number] 20:57:00 Test Item Value Reference Range Interpretation Comments THROMBOPLASTIN TIME 30.0 SECONDS 23.8-34.8 N INTERPRE TATIVE PARTIAL (test code = DATA: erapeutic PTT) range: Unfractionated heparin:55 - 80 seconds Argatroban:1.5 to 3 times the basel ine PTT CBC W/AUTO [id number] 20:49:00 Test Item Value Reference Range Interpretation Comments WHITE BLOOD CELL (test code = 5.1 x10 3/uL 4.8-10.8 N WBC) RED BLOOD CELL (test code = 2.75 x10 6/uL 4.70-6.10 L RBC) HEMOGLOBIN (test code = HGB) 9.8 g/dL 14.0-18.0 L HEMATOCRIT (test code = HCT) 28.8 % 42.0-52.0 L MEAN CELL VOLUME (test code = 104.7 fL 80.0-94.0 H MCV) MEAN CELL HGB (test code = MCH) 35.6 pg 27-31 H MEAN CELL HGB CONCENTRATION 34.0 G/DL 33-36.5 N (test code = MCHC) RED CELL DISTRIBUTION WIDTH 12.7 % 12.9-16.9 L (test code = RDW) PLATELET COUNT (test code = 215 x10 3/uL 150-440 N PLT) MEAN PLATELET VOLUME (test code 9.0 fL 8.9-12.4 N = MPV) NEUTROPHIL % (test code = NT%) 66.1 % 42.2-75.2 N LYMPHOCYTE % (test code = LY%) 18.0 % 20.5-51.1 L MONOCYTE % (test code = MO%) 12.3 % 1.7-9.3 H EOSINOPHIL % (test code = EO%) 2.6 % 0.0-7.0 N BASOPHIL % (test code = BA%) 0.6 % 0-2.5 N NEUTROPHIL # (test code = NT#) 3.34 x10 3/uL 1.80-7.70 N LYMPHOCYTE # (test code = LY#) 0.91 x10 3/uL 1.00-4.80 L MONOCYTE # (test code = MO#) 0.62 x10 3/uL 0.00-0.80 N EOSINOPHIL # (test code = EO#) 0.13 x10 3/uL 0.00-0.45 N BASOPHIL # (test code = BA#) 0.03 x10 3/uL 0.0-0.20 N - XR FLUOROSCOPY 0-60 [id number] 15:06:00 [facility] : 1955 Sex: MPatient Name: MATTHEW REYNOLDS Unit No: [id number] EXAMS: CPT CODE: [id number] XR FLUOROSCOPY0-60 MIN [id number] EXAM: - XR FLUOROSCOPY 0-60 MIN DATE: 02/25/2023 8:30 AM. INDICATION: CAROTID STENOSISS. COMPARISON: None available. TECHNIQUE: Intraoperative fluoroscopy was provided to assist the ordering service. A radiologist was not present during the exam. FLUOROSCOPY: Time: 3 minutes and 3.4 sec.Total cumulative air kerma dose: 25.863 mGy Location: W1 FINDINGS: Images depict a right carotid angiography and placement of a carotid artery stent IMPRESSION: Intraoperative fluoroscopy was provided for the procedural service. Please see the procedure note for full details. at 1506 Reported and signed by: Alex Bowens MD CC: Evan Fernandez MD;Augustin Bajwa MD Technologist: Lynne Mayo (R),(CT),() Fluoro Time: DAP (Gy m2): Air Kerma (mGy): Trscr Dt/Tm: 02/25/2023 (1506) by:[email or web address] Printed Date/Time: 02/25/2023 (1505) Name: MATTHEW REYNOLDS [facility] Phys: Jw Valentin [address] : 1955 Age: 68 Sex: [place] [address] Loc: P.0223 1 Exam Date: 02/25/2023 Status: ADM IN PH: FAX: PAGE 1 Signed Report COMPREHENSIVE METABOLIC [id number] 12:13:00 Test Item Value Reference Range Interpretation Comments SODIUM (test code 141 mmol/L 136-145 N = NA) POTASSIUM (test 3.8 mmol/L 3.5-5.1 N code = K) CHLORIDE (test 110 mmol/l 98-107 H code = CL) CARBON DIOXIDE 24 mmol/L 20-31 N (test code = CO2) GLUCOSE (test code 104 ng/dL 74-106 N = GLU) BLOOD UREA 12 mg/dL 9-23 N NITROGEN (test code = BUN) GLOMERULAR >=60 max >60 The Glomerular FILTRATION RATE estimate mL/min Filtratio n Rate is a (test code = GFR) calculated parameterbased on serum Creatinin e, patient age and sex. GFR valuesless than 60 mL/min/1.73 square meters are kimberly cative ofChronic Kidne y Disease. Values less than 15 mL/min/1.73squa re meters indicate Kidney failure. The calculation for GFR is based on the CK D-EPI (2020) calculat ion. This formulais race indifferent and is the recommended formula for GFR by the National Kidney Foundation for Adults.The GFR will not calculate i f the sex is unknown or if thepatient's ag e is <18 years. CREATININE (test 0.70 mg/dL 0.70-1.30 N code = CREAT) TOTAL PROTEIN 5.6 mg/dL 5.7-8.2 L (test code = PROT) ALBUMIN (test code 3.8 mg/dL 3.2-4.8 N = ALB) CALCIUM (test code 8.0 mg/dL 8.7-10.4 L = CA) BILIRUBIN TOTAL 0.9 mg/mL 0.3-1.2 N (test code = BILT) SGOT/AST (test 38 I/U <34 H code = AST) SGPT/ALT (test 51 U/L 10-49 H code = ALT) ALKALINE 71.0 U/L 46-116 N PHOSPHATASE (test code = ALKP) [id number] 12:13:00 Test Item Value Reference Range Interpretation Comments PHOSPHOROUS (test code = PHOS) 3.5 mg/dL 2.4-5.1 N [id number] 12:13:00 Test Item Value Reference Range Interpretation Comments MAGNESIUM (test code = MAG) 1.4 mg/dL 1.6-2.6 L LACTIC [id number] 11:40:00 Test Item Value Reference Range Interpretation Comments LACTIC ACID (test code = LACT) 0.40 mmol/L 0.5-2.0 L PROTHROMBIN [id number] 11:36:00 Test Item Value Reference Range Interpretation Comments PROTHROMBIN TIME 12.7 SECONDS 10.3-12.9 N PATIENT (test code = PTP) INTERNATIONAL 1.08 INR UNIT 0.9-1.11 N The INR is us eful only NORMAL RATIO (test for monit oring code = INR) anticoagulant therapy.It may be unreliable in t he initial phase o f antigoagulation and in unstable patien ts. Indication for Anticoagulation Recommended INR 1. Prevention of v enous thomboembolism 2.0-3.0in high- risk patients; treat ment of venousthrombosi s and pulmonary embol ism aftera course o f heparin; preven tion of systemicembolis m in a variety of cond itions, including atria l fibrillation an d prothetic tissu e heart valves, 2. Pros thetic mechanical hear t valves; 2.5-3.5recurren t systemic emboli sm. THROMBOPLASTIN TIME [id number] 11:36:00 Test Item Value Reference Range Interpretation Comments THROMBOPLASTIN TIME 30.9 SECONDS 23.8-34.8 N INTERPRE TATIVE PARTIAL (test code = DATA:Th erapeutic PTT) range: Unfractionated heparin:55 - 80 seconds Argatroban:1.5 to 3 times the basel ine PTT CBC W/AUTO [id number] 11:27:00 Test Item Value Reference Range Interpretation Comments WHITE BLOOD CELL (test code = 4.1 x10 3/uL 4.8-10.8 L WBC) RED BLOOD CELL (test code = 2.68 x10 6/uL 4.70-6.10 L RBC) HEMOGLOBIN (test code = HGB) 9.5 g/dL 14.0-18.0 L HEMATOCRIT (test code = HCT) 27.7 % 42.0-52.0 L MEAN CELL VOLUME (test code = 103.4 fL 80.0-94.0 H MCV) MEAN CELL HGB (test code = MCH) 35.4 pg 27-31 H MEAN CELL HGB CONCENTRATION 34.3 G/DL 33-36.5 N (test code = MCHC) RED CELL DISTRIBUTION WIDTH 12.7 % 12.9-16.9 L (test code = RDW) PLATELET COUNT (test code = 189 x10 3/uL 150-440 N PLT) MEAN PLATELET VOLUME (test code 8.9 fL 8.9-12.4 N = MPV) NEUTROPHIL % (test code = NT%) 63.4 % 42.2-75.2 N LYMPHOCYTE % (test code = LY%) 24.5 % 20.5-51.1 N MONOCYTE % (test code = MO%) 6.9 % 1.7-9.3 N EOSINOPHIL % (test code = EO%) 3.7 % 0.0-7.0 N BASOPHIL % (test code = BA%) 0.5 % 0-2.5 N NEUTROPHIL # (test code = NT#) 2.59 x10 3/uL 1.80-7.70 N LYMPHOCYTE # (test code = LY#) 1.00 x10 3/uL 1.00-4.80 N MONOCYTE # (test code = MO#) 0.28 x10 3/uL 0.00-0.80 N EOSINOPHIL # (test code = EO#) 0.15 x10 3/uL 0.00-0.45 N BASOPHIL # (test code = BA#) 0.02 x10 3/uL 0.0-0.20 N COAGULATION TIME [id number] 09:55:00 Test Item Value Reference Range Interpretation Comments COAGULATION TIME ACTIVATED (test 353 SECONDS 74-137 H code = ACT) Urinalysis macro (dipstick) panel - [id number] 09:20:00 Test Item Value Reference Range Interpretation Comments leukocytes (test code negative neg = leukocytes) urobilinogen (test 0.2 E.U./dL sm amt (.5-1mg/dL) code = urobilinogen) protein (test code = negative See_Comment [Autom ated protein) message] The sy stem which generated this result transmitted reference range : <=150 mg/d. The reference range was not used to interpret this result as normal/abnormal . pH (test code = pH) 7.0 4.5-8 blood (test code = negative See_Comment [Automat ed blood) message] The sy stem which generated this result transmitted reference range : <=3 RBC. The reference range was not used to interpret this result as normal/abnormal . specific gravity 1.015 1.005-1.025 (test code = specific gravity) ketone (test code = negative none ketone) bilirubin (test code negative neg = bilirubin) glucose (test code = negative See_Comment [Autom ated glucose) message] The sy stem which generated this result transmitted reference range : <=130 mg/d. The reference range was not used to interpret this result as normal/abnormal . color (test code = yellow yellow color) clarity (test code = clear clear or cloudy clarity) nitrite (test code = negative neg nitrite) [facility]rologyPS[facility], serum or [id number] 00:00:00 Test Item Value Reference Range Interpretation Comments PSA testosterone (test code = PSA testosterone) PSA_1 (test code = PSA_1) 7.13 [facility] UrologyGLYCOSYLATED HEMOGLOBIN [id number] 04:52:00 Test Item Value Reference Range Interpretation Comments GLYCOSYLATED HEMOGLOBIN (HA1C) 4.8 % A1C 0.0-5.7 N (test code = GLYHGB) ESTIMATED AVERAGE GLUCOSE (test 91 MG/DLest code = EAG) BASIC METABOLIC [id number] 04:49:00 Test Item Value Reference Range Interpretation Comments SODIUM (test code 135 mmol/L 134-147 N = NA) POTASSIUM (test 3.8 mmol/L 3.4-5.0 N code = K) CHLORIDE (test 104 mmol/L 100-108 N code = CL) CARBON DIOXIDE 26 mmol/L 21-32 N (test code = CO2) ANION GAP (test 5.0 GAP calc 4.0-15.0 N code = GAP) GLUCOSE (test code 101 MG/DL 70-110 N = GLU) BLOOD UREA 11 MG/DL 7-18 N NITROGEN (test code = BUN) GLOMERULAR >=60 max >60 The Glomerular FILTRATION RATE estimate estGFR Filtratio n Rate is a (test code = GFR) calculated parameterbased on serum Creatinin e, patient age and sex. GFR valuesless than 60 mL/min/1.73 square meters are kimberly cative ofChronic Kidne y Disease. Values less than 15 mL/min/1.73squa re meters indicate Kidney failure. The calculation for GFR is based on the CK D-EPI (2020) calculat ion. This formulais race indifferent and is the recommended formula for GFR by the National Kidney Foundation for Adults.The GFR will not calculate i f the sex is unknown or if thepatient's ag e is <18 years. CREATININE (test 0.6 MG/DL 0.8-1.3 L code = CREAT) CALCIUM (test code 9.1 MG/DL 8.5-10.1 N = CA) CBC W/AUTO [id number] 04:40:00 Test Item Value Reference Range Interpretation Comments WHITE BLOOD CELL (test code = 4.1 K/mm3 3.5-11.0 N WBC) RED BLOOD CELL (test code = 3.52 M/mm3 4.70-6.10 L RBC) HEMOGLOBIN (test code = HGB) 12.0 G/DL 12.3-15.9 L HEMATOCRIT (test code = HCT) 34.1 % 35.8-46.7 L MEAN CELL VOLUME (test code = 96.9 Fl 86.3-98.9 N MCV) MEAN CELL HGB (test code = MCH) 34.1 pg 28.9-34.4 N MEAN CELL HGB CONCETRATION 35.2 G/DL 32.1-34.5 H (test code = MCHC) RED CELL DISTRIBUTION WIDTH 12.6 SD 11.5-14.5 N (test code = RDW) PLATELET COUNT (test code = 196 K/mm3 150-450 N PLT) MEAN PLATELET VOLUME (test code 8.70 fL 7.0-9.6 N = MPV) NEUTROPHIL % (test code = NT%) 55.4 % 40-76 IMMATURE GRANULOCYTE % (test 0.5 % 0.0-5.0 N code = IG%) LYMPHOCYTE % (test code = LY%) 25.6 % 20.5-51.1 N MONOCYTE % (test code = MO%) 14.9 % 1.7-9.3 H EOSINOPHIL % (test code = EO%) 2.9 % 0.0-6.0 N BASOPHIL % (test code = BA%) 0.7 % 0.0-2.0 N NUCLEATED RBC % (test code = 0.0 /100WBC% 0.0-1.0 N NRBC%) NEUTROPHIL # (test code = NT#) 2.3 K/mm3 1.8-7.6 N IMMATURE GRANULOCYTE # (test 0.02 x10 3/uL 0.00-0.03 N code = IG#) LYMPHOCYTE # (test code = LY#) 1.1 K/mm3 0.6-3.0 N MONOCYTE # (test code = MO#) 0.6 K/mm3 0.2-1.5 N EOSINOPHIL # (test code = EO#) 0.1 K/mm3 0.0-0.4 N BASOPHIL # (test code = BA#) 0.0 K/mm3 0.0-0.2 N NUCLEATED RBC # (test code = 0.0 K/mm3 0.00-0.01 N NRBC#) MANUAL DIFF REQUIRED (test code NO DIFF/SCN CRITERIA = MDIFF) COAGULATION TIME [id number] 07:30:00 Test Item Value Reference Range Interpretation Comments COAGULATION TIME ACTIVATED (test 271 SECistat 74-125 H code = ACT) LIPID PROFILE (CORONARY RISK)2022-09-18 06:44:00 Test Item Value Reference Range Interpretation Comments TRIGLYCERIDES (test 66 MG/DL 0-150 N code = TRIG) CHOLESTEROL (test 195 MG/DL 133-200 N code = CHOL) CHOLESTEROL/HDL 1.97 RATIO See_Comment RISK ASSOCIA HIEU WITH RATIO (test code = CHOL/HDL RATIOS: RISK CHOLHDL) MALE FEMALE1/2 AVERAGE 3.43 3.27AVERAG E 4.97 4.442X AVERAGE 9.55 7.053X AVERAGE 23.39 11.04 NOTE THAT THE REFERENCE VALUE IS RELATED TO RISK LEVELS ASRECOMMENDED B Y THE [facility] . [Automated mess age] The system which ge nerated this result tra nsmitted reference range : 0-. The reference range was not used to interpr et this result as normal/abnormal . HDL CHOLESTEROL 99 MG/DL 40-59 H (test code = HDL) NON-HDL CHOLESTEROL 96 mg/dL <130 (test code = NHDL) LIPOPROTEIN LDL 91 MG/DL 0-129 N <100 OPTIMAL 100 - 129 (test code = LDL) NEAR OPTIM AL/ABOVE [id number] - 15 9 [id number] - 189 HIGH>OR= 190 VE RY HIGHNOTE THAT G UIDELINES ARE PROVIDED BY NATIONAL CHOLESTEROLEDUC ATION PROGRAM ADULT T REATMENT PANEL III LDL/HDL (test code 0.91 Ratio See_Comment L [Automat ed message] The = LDL/HDL) system which ge nerated this result tra nsmitted reference range : 1.48-3.22 Avg. The reference range was not used to interpr et this result as normal/abnormal . [id number] 06:44:00 Test Item Value Reference Range Interpretation Comments MAGNESIUM (test code = MAG) 2.0 MG/DL 1.8-2.4 N PROTHROMBIN [id number] 06:44:00 Test Item Value Reference Range Interpretation Comments PT PATIENT (test 10.1 SECONDS 9.3-12.9 N code = PTP) INTERNATIONAL NORMAL 0.91 INR Unit 0.8-1.2 N TARGE T INR BY RATIO (test code = INDICATIO N Indication INR) INR1. Prophylax is of venous thrombos is 2.0 - 3.0 (orthoped ic surgery), Proph ylaxis of venous throm bosis (other than hig h-risk surgery), Treat ment of Deep Vein Thrombosis/Pulm onary Embolism, Preve ntion of systemic emb olism - Tissue heart va lves, Acute Myocardia l Infarction (to prevent systemic emboli sm), Valvular heart disease, Acute Myocardial Infa rction (to prevent sy stemic embolism), Valv ular heart disease, Atrial Fibrillation, Bileaflet mecha nical valve in aortic position.2. Mec hanical prosthetic valv es (high risk), 2. 5 - 3.5 Presence of Lup us Anticoagulant o r Antiphospholipi d Antibodies, Pre vention of systemic emb olism - Acute Myocardia l Infarction (to prevent recurrent infar ct). THROMBOPLASTIN TIME [id number] 06:44:00 Test Item Value Reference Range Interpretation Comments THROMBOPLASTIN TIME PARTIAL 31.3 SECONDS 26-35 N (test code = PTT) COMPREHENSIVE METABOLIC [id number] 06:44:00 Test Item Value Reference Range Interpretation Comments SODIUM (test code 133 mmol/L 134-147 L = NA) POTASSIUM (test 4.2 mmol/L 3.4-5.0 N code = K) CHLORIDE (test 100 mmol/L 100-108 N code = CL) CARBON DIOXIDE 27 mmol/L 21-32 N (test code = CO2) ANION GAP (test 6.0 GAP calc 4.0-15.0 N code = GAP) GLUCOSE (test code 95 MG/DL 70-110 N = GLU) BLOOD UREA 9 MG/DL 7-18 N NITROGEN (test code = BUN) GLOMERULAR >=60 max >60 The Glomerular FILTRATION RATE estimate estGFR Filtratio n Rate is a (test code = GFR) calculated parameterbased on serum Creatinin e, patient age and sex. GFR valuesless than 60 mL/min/1.73 square meters are kimberly cative ofChronic Kidne y Disease. Values less than 15 mL/min/1.73squa re meters indicate Kidney failure. The calculation for GFR is based on the CK D-EPI (2020) calculat ion. This formulais race indifferent and is the recommended formula for GFR by the National Kidney Foundation for Adults.The GFR will not calculate i f the sex is unknown or if thepatient's ag e is <18 years. CREATININE (test 0.6 MG/DL 0.8-1.3 L code = CREAT) TOTAL PROTEIN 7.9 G/DL 6.4-8.2 N (test code = PROT) ALBUMIN (test code 4.2 G/DL 3.4-5.0 N = ALB) GLOBULIN (test 3.7 GM/dL code = GLOB) ALBUMIN/GLOBULIN 1.1 RATIO 1.2-2.2 L RATIO (test code = A/G) CALCIUM (test code 9.2 MG/DL 8.5-10.1 N = CA) BILIRUBIN TOTAL 0.60 MG/DL 0.2-1.2 N (test code = BILT) SGOT/AST (test 51 Unit/L 15-37 H code = AST) SGPT/ALT (test 80 Unit/L 12-78 H code = ALT) ALKALINE 91 Unit/L 50-136 N PHOSPHATASE TOTAL (test code = ALKP) CBC W/AUTO [id number] 06:43:00 Test Item Value Reference Range Interpretation Comments WHITE BLOOD CELL (test code = 4.5 K/mm3 3.5-11.0 N WBC) RED BLOOD CELL (test code = 3.90 M/mm3 4.70-6.10 L RBC) HEMOGLOBIN (test code = HGB) 13.2 G/DL 12.3-15.9 N HEMATOCRIT (test code = HCT) 37.7 % 35.8-46.7 N MEAN CELL VOLUME (test code = 96.7 Fl 86.3-98.9 N MCV) MEAN CELL HGB (test code = MCH) 33.8 pg 28.9-34.4 N MEAN CELL HGB CONCETRATION 35.0 G/DL 32.1-34.5 H (test code = MCHC) RED CELL DISTRIBUTION WIDTH 12.4 SD 11.5-14.5 N (test code = RDW) PLATELET COUNT (test code = 260 K/mm3 150-450 N PLT) MEAN PLATELET VOLUME (test code 8.90 fL 7.0-9.6 N = MPV) NEUTROPHIL % (test code = NT%) 48.4 % 40-76 N IMMATURE GRANULOCYTE % (test 0.9 % 0.0-5.0 N code = IG%) LYMPHOCYTE % (test code = LY%) 29.8 % 20.5-51.1 N MONOCYTE % (test code = MO%) 15.7 % 1.7-9.3 H EOSINOPHIL % (test code = EO%) 4.3 % 0.0-6.0 N BASOPHIL % (test code = BA%) 0.9 % 0.0-2.0 N NUCLEATED RBC % (test code = 0.0 /100WBC% 0.0-1.0 N NRBC%) NEUTROPHIL # (test code = NT#) 2.2 K/mm3 1.8-7.6 N IMMATURE GRANULOCYTE # (test 0.04 x10 3/uL 0.00-0.03 H code = IG#) LYMPHOCYTE # (test code = LY#) 1.3 K/mm3 0.6-3.0 N MONOCYTE # (test code = MO#) 0.7 K/mm3 0.2-1.5 N EOSINOPHIL # (test code = EO#) 0.2 K/mm3 0.0-0.4 N BASOPHIL # (test code = BA#) 0.0 K/mm3 0.0-0.2 N NUCLEATED RBC # (test code = 0.0 K/mm3 0.00-0.01 N NRBC#) MANUAL DIFF REQUIRED (test code NO DIFF/SCN CRITERIA = MDIFF) COVID 19 INHOUSE [id number] 06:39:00 Test Item Value Reference Range Interpretation Comments COVID 19 INHOUSE AG NEGATIVE Negative Per manu facturer, (test code = negative result s should [id number]) be treated aspr esumptive and, if inconsi stent with clinical signs andsymptoms or necessary for patient man agement, should betested with an alternative mol ecular assay. Negative resultsdo not preclude SA RS-CoV-2 infection and s hould not be usedas the s ole basis for patient man agement decisions. Nega tive results should be considered in t he context of apatient's r ecent exposures, hist ory, presence of cli nicalsigns and symptoms co nsistent with COVID-19. Urinalysis macro (dipstick) panel - [id number] 11:20:00 Test Item Value Reference Range Interpretation Comments leukocytes (test code negative neg = leukocytes) urobilinogen (test 1.0 E.U./dL sm amt code = urobilinogen) (.5-1mg/dL) protein (test code = negative See_Comment [Autom ated protein) message] The sy stem which generated this result transmitted reference range : <=150 mg/d. The reference range was not used to interpret this result as normal/abnormal . pH (test code = pH) 6.5 4.5-8 blood (test code = trace-intact See_Comment [Automat ed blood) message] The sy stem which generated this result transmitted reference range : <=3 RBC. The reference range was not used to interpret this result as normal/abnormal . specific gravity 1.020 1.005-1.025 (test code = specific gravity) ketone (test code = negative none ketone) bilirubin (test code negative neg = bilirubin) glucose (test code = negative See_Comment [Autom ated glucose) message] The sy stem which generated this result transmitted reference range : <=130 mg/d. The reference range was not used to interpret this result as normal/abnormal . color (test code = yellow yellow color) clarity (test code = clear clear or cloudy clarity) nitrite (test code = negative neg nitrite) [facility] U[facility] by [id number] 00:00:00 [facility]Texas [facility] UrologyBASIC METABOLIC [id number] 05:21:00 Test Item Value Reference Range Interpretation Comments SODIUM (test code = 132 MMOL/L 137-145 L NA) POTASSIUM (test code = 4.9 MMOL/L 3.5-5.1 N K) CHLORIDE (test code = 102 MMOL/L 98-107 N CL) CARBON DIOXIDE (test 26 MMOL/L 22-30 N code = CO2) ANION GAP (test code = 9 MMOL/L 14-24 L GAP) GLUCOSE (test code = 145 MG/DL 74-106 H GLU) BLOOD UREA NITROGEN 11 MG/DL 9-20 N (test code = BUN) GLOMERULAR FILTRATION > 60 Report ing units: RATE (test code = GFR) ml/mi n/1.73 m2 (Modified MDRD Formula)Referen ce Range: > or = 6 0 ml/min/1.73 m2 CREATININE (test code 0.50 MG/DL 0.66-1.25 L = CREAT) CALCIUM (test code = 9.2 MG/DL 8.4-10.2 N CA) CBC W/AUTO [id number] 05:02:00 Test Item Value Reference Range Interpretation Comments WHITE BLOOD CELL (test code = 8.1 K/MM3 3.8-9.8 N WBC) RED BLOOD CELL (test code = 3.42 M/MM3 3.95-5.67 L RBC) HEMOGLOBIN (test code = HGB) 11.9 G/DL 12.4-16.7 L HEMATOCRIT (test code = HCT) 34.6 % 35.9-49.5 L MEAN CELL VOLUME (test code = 101 fL 81.7-96.1 H MCV) MEAN CELL HGB (test code = MCH) 34.8 pg 27.6-33.2 H MEAN CELL HGB CONCETRATION 34.4 % 32.9-35.5 N (test code = MCHC) RED CELL DISTRIBUTION WIDTH 12.6 % 12.1-15.2 N (test code = RDW) PLATELET COUNT (test code = 186 K/MM3 129-368 N PLT) MEAN PLATELET VOLUME (test code 9.2 fl 7.4-10.4 N = MPV) NEUTROPHIL % (test code = NT%) 80.6 % 43-75 H IMMATURE GRANULOCYTE % (test 0.6 % 0.0-2.0 N code = IG%) LYMPHOCYTE % (test code = LY%) 7.8 % 14-44 L MONOCYTE % (test code = MO%) 10.9 % 4-13 N EOSINOPHIL % (test code = EO%) 0.0 % 0-6 N BASOPHIL % (test code = BA%) 0.1 % 0-2 N NUCLEATED RBC % (test code = 0.0 % 0-1.0 N NRBC%) NEUTROPHIL # (test code = NT#) 6.50 K/mm3 2.0-7.6 N IMMATURE GRANULOCYTE # (test 0.05 x10 3/uL 0-0.03 H code = IG#) LYMPHOCYTE # (test code = LY#) 0.63 K/mm3 1.0-3.8 L MONOCYTE # (test code = MO#) 0.88 K/mm3 0.1-0.8 H EOSINOPHIL # (test code = EO#) 0.00 K/mm3 0.0-0.2 N BASOPHIL # (test code = BA#) 0.01 K/mm3 0.0-0.2 N NUCLEATED RBC # (test code = 0.00 K/mm3 0.0-0.1 N NRBC#) [id number] 13:01:00 Test Item Value Reference Range Interpretation Comments ACT-ISTAT (test code = ACTI) 190 SEC 74-137 H [id number] 12:42:00 Test Item Value Reference Range Interpretation Comments ACT-ISTAT (test code = ACTI) 303 SEC 74-137 H [id number] 12:18:00 Test Item Value Reference Range Interpretation Comments ACT-ISTAT (test code = ACTI) 297 SEC 74-137 H [id number] 11:47:00 Test Item Value Reference Range Interpretation Comments ACT-ISTAT (test code = ACTI) 339 SEC 74-137 H [id number] 08:17:00 Test Item Value Reference Range Interpretation Comments MAGNESIUM (test code = MAG) 1.9 MG/DL 1.6-2.3 N BASIC METABOLIC [id number] 08:17:00 Test Item Value Reference Range Interpretation Comments SODIUM (test code = 131 MMOL/L 137-145 L NA) POTASSIUM (test code = 5.0 MMOL/L 3.5-5.1 N K) CHLORIDE (test code = 99 MMOL/L 98-107 N CL) CARBON DIOXIDE (test 28 MMOL/L 22-30 N code = CO2) ANION GAP (test code = 9 MMOL/L 14-24 L GAP) GLUCOSE (test code = 108 MG/DL 74-106 H GLU) BLOOD UREA NITROGEN 16 MG/DL 9-20 N (test code = BUN) GLOMERULAR FILTRATION > 60 Report ing units: RATE (test code = GFR) ml/mi n/1.73 m2 (Modified MDRD Formula)Referen ce Range: > or = 6 0 ml/min/1.73 m2 CREATININE (test code 0.60 MG/DL 0.66-1.25 L = CREAT) CALCIUM (test code = 9.6 MG/DL 8.4-10.2 N CA) PROTHROMBIN [id number] 08:10:00 Test Item Value Reference Range Interpretation Comments PROTHROMBIN TIME 11.0 SECONDS 9.5-12.7 N PATIENT (test code = PTP) INTERNATIONAL NORMAL 1.0 0.86-1.14 N The INR is to be RATIO (test code = used only for INR) monitoring oral anticoagulantth erap y. INDICATION I NR VALUE ---- ---- ---- -------1. Prophylaxis, de ep venous thrombos is, including high risk surgery. 2.0 - 3.0 2. Prophylaxis, deep venous thrombosis, hip surgery, treatm ent for deep venous thrombosis or pulmonary prevention of systemic emboli sm in patients wit h valvular heart disease, atrial fibrillation, tissue heart va lve, or acute myocar dial infarction. 2.0 - 3.0 3. Immigration Attorney al prosthesis hear t valves, recurre nt systemic emboli sm. 3.0 - 4.5 PTT [id number] 08:10:00 Test Item Value Reference Range Interpretation Comments PTT ACTIVATED (test code = APTT) 32.8 SECONDS 25.1-36.5 N CBC W/AUTO [id number] 08:00:00 Test Item Value Reference Range Interpretation Comments WHITE BLOOD CELL (test code = 5.2 K/MM3 3.8-9.8 N WBC) RED BLOOD CELL (test code = 4.03 M/MM3 3.95-5.67 N RBC) HEMOGLOBIN (test code = HGB) 13.9 G/DL 12.4-16.7 N HEMATOCRIT (test code = HCT) 40.2 % 35.9-49.5 N MEAN CELL VOLUME (test code = 100 fL 81.7-96.1 H MCV) MEAN CELL HGB (test code = MCH) 34.5 pg 27.6-33.2 H MEAN CELL HGB CONCETRATION 34.6 % 32.9-35.5 N (test code = MCHC) RED CELL DISTRIBUTION WIDTH 12.6 % 12.1-15.2 N (test code = RDW) PLATELET COUNT (test code = 223 K/MM3 129-368 N PLT) MEAN PLATELET VOLUME (test code 8.7 fl 7.4-10.4 N = MPV) NEUTROPHIL % (test code = NT%) 51.7 % 43-75 N IMMATURE GRANULOCYTE % (test 0.8 % 0.0-2.0 N code = IG%) LYMPHOCYTE % (test code = LY%) 29.5 % 14-44 N MONOCYTE % (test code = MO%) 14.7 % 4-13 H EOSINOPHIL % (test code = EO%) 2.3 % 0-6 N BASOPHIL % (test code = BA%) 1.0 % 0-2 N NUCLEATED RBC % (test code = 0.0 % 0-1.0 N NRBC%) NEUTROPHIL # (test code = NT#) 2.68 K/mm3 2.0-7.6 N IMMATURE GRANULOCYTE # (test 0.04 x10 3/uL 0-0.03 H code = IG#) LYMPHOCYTE # (test code = LY#) 1.53 K/mm3 1.0-3.8 N MONOCYTE # (test code = MO#) 0.76 K/mm3 0.1-0.8 N EOSINOPHIL # (test code = EO#) 0.12 K/mm3 0.0-0.2 N BASOPHIL # (test code = BA#) 0.05 K/mm3 0.0-0.2 N NUCLEATED RBC # (test code = 0.00 K/mm3 0.0-0.1 N NRBC#) COVID 19 Asymptomatic IH [id number] 06:46:00 Test Item Value Reference Range Interpretation Comments COVID 19 NEGATIVE Negative "Negative resul ts from Asymptomatic IH AG patients with symptom (test code = onset beyondfiv e days, COVNONPUIAG) should be darcy hieu as presumptive, andconfirmation with a molecular assay , if necessary forpa tient management may be performed. Nega tive results do notr ule out COVID-19 and sh ould not be used as the sole basisfor treatm ent or patient managem ent decisions, includinginfect ion control decisio ns. Negative result s should beconsidered in the context of a pa tients recent exposure s,history, and the presenc e of clinical signs and symptomsconsist ent with COVID-19.This t est detects both vi able andnon-viable S ARS-CoV and SARS CoV-2. Test performance dep endson the amount of virus (antigen) in the sample." Notes Date/Time Note Provider Source 2023-02-27 14:22:00 [id number]:22:00 [facility] ([facility]) Med Order Sheet REPORT #: [id number] REPORT STATUS: Signed DATE: 02/27/23 TIME: 142 PATIENT: MATTHEW REYNOLDS UNIT #: [id number] #: [id number] ROOM #: P.0223 BED: 1 : 54 AGE: 68 SEX: M ATTEND: Augustin Bajwa MD ADM AUTHOR: Jasvir Giang MD ATTENTION * EDITS and/or ADDENDA must be made in Patient Keeper for this note. Edit s and ammendments created in [employer] are not visible in Patient Keeper or the legal medica l record ([facility]). * Discharge Medication Reconciliation Hosp: Cyanocobal/Fa/Pyridox Tab (NF) (Folbic Tab (NF)) Dose: 1 TAB PO BID, Disp: 180 tablet, Refills: 0 at 1422ATTENTION * EDITS and/or ADDENDA must be made in Patient Keeper for this note. Edits and ammendments created in [employer] are no t visible in Patient Keeper or the legal medica l record ([facility]). * RPT #: [id number] OF REPORTCLClinical [id number]:22:[id number] v ailable for patient [id number]:23:02 2023-02-27 14:17:00 [id number]:17:00 [facility] ([facility]) Med Order Sheet REPORT #: [id number] REPORT STATUS: Signed DATE: 02/27/23 TIME: 1417 PATIENT: MATTHEW REYNOLDS UNIT #: [id number] #: [id number] ROOM #: P.0223 BED: 1 : 54 AGE: 68 SEX: M ATTEND: Augustin Bajwa MD ADM AUTHOR: Jasvir Giang MD ATTENTION * EDITS and/or ADDENDA must be made in Patient Keeper for this note. Edit s and ammendments created in [facility] are not visible in Patient Keeper or the legal medica l record ([facility]). * Discharge Medication Reconciliation Hosp: Tamsulosin Cap (Flomax Cap) Dose: 0.8 MG PO DAILY, Disp: 60 capsule, Refills : 0 at 1417ATTENTION * EDITS and/or ADDENDA must be made in Patient Keeper for this note. Edits and ammendments created in [facility] are no t visible in Patient Keeper or the legal medica l record ([facility]). * RPT #: [id number] OF REPORTCLClinical [id number]:17:[id number] reid ailable for patient [id number]:17:41 2023-02-27 14:17:00 [id number]:17:00 [facility] ([facility]) Internal Med. D/C Summary REPORT #: [id number] REPORT STATUS: Signed DATE: 02/27/23 TIME: 1417 PATIENT: MATTHEW REYNOLDS UNIT #: [id number] #: [id number] ROOM #: P.0223 BED: 1 : 54 AGE: 68 SEX: M ATTEND: Augustin Bajwa MD ADM AUTHOR: Jasvir Giang MD ATTENTION * EDITS and/or ADDENDA must be made in Patient Keeper for this note. Edit s and ammendments created in [facility] are not visible in Patient Keeper or the legal medica l record ([facility]). * -- PROBLEMS/PROCEDURES - - ADMISSION DATE:02/25/23 ADMITTING DIAGNOSES: - Acute urinary retention - Atrial fibrillation - CAD (coronary artery disease) - Carotid stenosis - Hypertension DISCHARGE DATE:02/27/23 DISCHARGE DIAGNOSES: - Acute urinary retention - Atrial fibrillation - CAD (coronary artery disease) - Carotid stenosis - Hypertension - Folic acid deficiency PROCEDURES PERFORMED:Right transcarotid artery revascularization -- HOSPITA L COURSE -- HOSPITAL COURSE:68 yr [facility] internac[facility]otid artery stenosis. Pt transferred to [facility] for TCAR with Dr. Bajwa. Patient underewent surgery on02/25 and tolerated procedure well. Post operatively, he did have some urinaryretention and ended up needing straight cath twice. His flomax dose wasincreased to 0.8 mg. He was able to void freely. Patient was reevaluated by Lynne ALLRED and was voiding freely an d subsequentlydischarged. Flomax 0. 8 mg was cochran d in to his pharmacy. Tylenol was advisedfor pain control. Folic acid was noted to be low. B12/ folic acidsupplementation was called in to his pharmacy, patient will follow up with PCPand urologist as well as Dr. Jimenez on discharge. -- DISCHARGE MEDICATIONS -- ALLERGIES:lisinopril (Unknown - Allergy)[EXTERNAL] Lisinopril (UNKNOW N - External allergies are for display only,consider adding to medical record for drug interaction check)[EXTERNAL] lisinopril LISINOPRIL (UNKNOWN - External allergies are for displayonly, consider adding to medical record for drug interaction check) DISCHARGE MEDICATIONS:Please refer to Discharge Medication list for a complete list of dischargemedicationsamLODIPine Tab (Norvasc Tab) 10 MG PO DAILYAspirin EC Tab (Ecotrin Tab) 81 MG PO DAILYAtorvastatin Tab (Lipitor Tab) 80 MG PO BEDTIMEClopidogrel Tab (Plavix Tab) 75 MG PO BEDTIMECyanocobal/Fa/Pyridox Tab (NF) (Folbic Ta b (NF)) 1 TAB PO BID, Disp: 180tablet, Refills: 0Losartan Tab (Cozaar Tab) [address] Tab (Protonix Tab) 40 MG PO DAILYSotalol Tab (Betapace Tab) 80 MG PO DAILYTamsulosin Cap (Flomax Cap) 0.8 MG PO DAILY , Disp: 60 capsule, Refills: 0 -- DISCHARGE INSTRUCTIONS -- ADMISSION ORDERS:Discharge Follo w Up:ADT - Admission Orders Details:Order number: [id number]: ADT - Admission OrdersOrder status: Transmitted Details:Consulting provider 1: . Ordered by: Lynne Velez Feb 27, 2023 1:37pmEntered by: Lynne Velez Service date: Feb 27, 2023 1:36pm PK DISCHARGE ORDERS:Discharge w/Instructions:PKDC - PK DISCHARGE ORDERS Details:Order number: [id number]: PKDC - PK DISCHARGE ORDERSOrder status: Transmitted Details:Discharge order: YesDischarge to: Home/Self CareDiet: Resume Home Diet/FeedsActivity: As Tolerated Light Duty No Lifting gt;20lbs Walk 3 times a dayPCP follow up timeframe: In 1-2 weeksNotify PCP of Signs/Symptoms: Increased redness Increased tenderness/pain Moderate/large bleeding Numbness Temp. 101 or greaterWound/dressing care: OK to shower tomorrowAdditional Discharge Routines: Civil Transportation Engineer Follow-Up Ordered by: Lynne Velez Feb 27, 2023 1:37pmEntered by: Lynne Velez Service date: Feb 27, 2023 1:36pm Details:Order number: [id number]: PKDC - PK DISCHARGE ORDERSOrder status: Transmitted Details:Does patient have any of the following conditions at discharge? Stroke/TIA/Carotid Sten.Statin at Discharge? YesLDL Level: 91Antithrombotic at Discharge? YesHX/Current/Suspected AFIB/AFLUTTER : YesAnticoagulation Therapy at Discharge? YesAssessed for PT/OT/ST? Yes Ordered by: Lynne Velez Feb 27, 2023 1:37pmEntered by: Lynne Velez Service date: Feb 27, 2023 1:36pm DC - ALL eCQMS Yes; Yes; Yes ADDTIONAL DISCHARGE INSTRUCTIONS:Emergency Instructions: The patient was instructed to present to the [facility] y Department or call 911 should their symptoms return or worsen.; -- OBJECTIVE -- VITALS (02/26 14:17 - 02/27 14:17):Temperature F: 97.9 (97.6 - 98.5)Temperature source: AxillaryPulse Rate 66 (57 - 75)Respiratory rate: 24 (12 - 31)BP: 152/6 7 (117/59 - 164/127)Blood pressure source: Monitor I/Os (02/26 07:00 - 02/27 07:00):Net 985Intake 2,760Output 1,775 -EXAM- GENERAL: Well developed , well nourished, in no apparent distress.HEAD: Normocephalic, atraumatic. EYES: PERRL, EOM intact, conjunctiva and sclera clear, without nystagmus, lids normal.NOSE: No deformity, no discharge, no inflammation, no lesions.MOUTH: Oropharynx without deformities or lesions, tamanna l mucosa..NECK: No masses, no thyromegaly, no abnormal cervical nodes, trachea midline.CHEST: Grossly normal appearance.LUNGS: Clear bilaterally with normal respiratory effort.HEART : Regular rate and rhythm, normal S1, S2, no murmurs, no rubs, no gallops, no clicks.ABDOMEN: Soft, non-tender, no organomegaly, no masses noted.MUSCULOSKELETAL: No deformity, no scoliosi s noted of thoracic or lumbar spine, joint ROM grossly normal, normal gait and station.EXTREMITIES: No clubbing, no cyanosis, n o edema.NEUROLOGICAL: No focal deficits, cranial nerves II-XII grossly intact, normal sensation, normal reflexes, normal coordination, normal muscle strength, normal tone.PULSES: Pulses normal in all extremities.GENITOURINARY: Normal external genitalia.SKIN: surgical incision site on right neck and left groinPSYCHIATRIC: Alert and oriented to time, person, place. Normal mood and affect, intact judgment and insight. -- DATA -- LABS FOLIC ACID (02/26/23 16:40)FOLIC ACID 3.88 L FE W/TOTAL IRON BINDING CAP (02/26/23 16:40)IRON 92TOTAL IRON BINDING CAPACITY 286IRON SATURATION 32 VITB12 (02/26/23 16:40)VITAMIN B12 315 FOLIC ACID (02/26/23 16:40)FOLIC ACID 3.88 L FERRITIN (02/26/23 16:40)FERRITIN 684.5 H VITB1 2 (02/26/23 16:40)VITAMIN B12 315 RETIC COUNT (02/26/23 16:40)RETIC CT AUTOMATED 2.00 HRETIC C T ABSOLUTE 54.80 -- ATTESTATION -- TIME SPENT ON PATIENT CARE: - Direct 35 minutes - Coordination of care - > 50% of time spent on Counseling/Care Coordination CARE ACTIVITIES / CARE COORDINATION : - I have seen and examined this patient - I have reviewed the progress in the clinical course since the lastexamination - I have discussed the patient's condition with other members of the care team Signed in PatientKeeper by Jasvir Giang MD on 02/27/23 at 14:23 at 1423ATTENTION * EDITS and/or ADDENDA must be made in Patient Keeper for this note. Edits and ammendments created in [employer] are no t visible in Patient Keeper or the legal medica l record ([facility]). * RPT #: [id number] OF REPORTDSDischarge [id number]:17:00P.[id number] A VAvailable for patient [id number]:24:02 2023-02-27 13:37:00 [id number]:37:00 [facility] ([facility]) Med Order Sheet REPORT #: [id number] REPORT STATUS: Signed DATE: 02/27/23 TIME: 1337 PATIENT: MATTHEW REYNOLDS UNIT #: [id number] #: [id number] ROOM #: P.0223 BED: 1 : 54 AGE: 68 SEX: M ATTEND: Augustin Bajwa MD ADM AUTHOR: Lynne Velez ATTENTION * EDITS and/or ADDENDA must be made in Patient Keeper for this note. Edit s and ammendments created in [facility] are not visible in Patient Keeper or the legal medica l record ([facility]). * Discharge Medication Reconciliation DISCHARGE MEDICATION LISTamLODIPine Tab (Norvasc Tab) Dose: 10 MG PO DAILYAspirin EC Tab (Ecotrin Tab) Dose: 81 MG PO DAILYAtorvastatin Tab (Lipitor Tab) Dose: 80 MG PO BEDTIMEClopidogrel Tab (Plavix Tab) Dose: 75 MG PO BEDTIMELosartan Tab (Cozaar Tab) Dose: [address] Tab (Protonix Tab) Dose: 40 MG PO DAILYSotalol Tab (Betapace Tab) Dose: 80 MG PO DAILYTamsulosin Cap (Flomax Cap) Dose: 0.4 MG PO DAILY STOPPED HOSPITAL MEDICATIONSDc'd: Bisacodyl Supp (Dulcolax Supp) 10MG Rectal DAILY PRN constipationDc'd:Dextrose 50% 50 ml Syringe (D50W 50 ml Syringe) 25ML IV ASDIR PRNhypoglycemiaDc'd: Docusate Sodium Cap (Colace Cap) 200MG PO DAILYDc'd:Glucagon Inj (Glucagon Inj) 1MG IM ASDIR PRN hypoglycemia if noiv/enteralDc'd: hydrALAZINE Inj (Apresoline Inj) 10MG IV Q6H PRN sbp greaterthan 140Dc'd: HYDROcodone/APAP 7.5/325 Tab ([place] 7.5/325 Tab) 1TAB PO Q6HPRN pain scale 7-10 (use 1st)Dc'd: HYDROmorphone Inj (Dilaudid Inj) 0.25MG IVQ6H UT N breakthrough painDc'd: Labetalol Inj (Trandate Inj) 10MG IV Q6H PRNsee special instructionsDc'd : Polyethylene Glycol Powder (Miralax Powder) 1PKTPO DAILYDc'd: traMADol Tab (Ultram Tab) 50MG PO Q6H PRN pain scale4-6 13:3 6 at 1337ATTENTION * EDITS and/or ADDENDA must be made in Patient Keeper for this note. Edits and ammendments created in [employer] are no t visible in Patient Keeper or the legal medica l record ([facility]). * RPT #: [id number] OF REPORTCLClinical [id number]:37:[id number] v ailable for patient [id number]:37:41 2023-02-27 10:33:00 [id number]:33:00 [facility] ([facility]) Vascular Surg . Progress Note REPORT #: [id number] REPORT STATUS: Signed DATE: 02/27/23 TIME: 1033 PATIENT: MATTHEW REYNOLDS UNIT #: [id number] #: [id number] ROOM #: P.0223 BED: 1 : 54 AGE: 68 SEX: M ATTEND: Augustin Bajwa AUTHOR: Estela Padilla MD R4 ATTENTION * EDITS and/or ADDENDA must be made in Patient Keeper for this note. Edit s and ammendments created in [employer] are not visible in Patient Keeper or the legal medica l record ([facility]). * -- CO-SIGNATURE -- COMMENTS:I saw and examined the patient. I agree with the history and exam by Dr. Hightower the note attached. Okay to discharge home on aspirin , Plavix, and statin..He will follow-up with me in 2 weeks in the office. Signed in PatientKeeper b y AUGUSTIN BAJWA MD on 02/27/23 at 11:50 -- ASSESSMENT AND PLAN -- GENERAL ASSESSMENT:68y o M w/ R carotid stenosis s/p R TCAR 8/5 -OK to Discharge-continue ASA, statin, plavix-FU in clinic in 1-2 wks -- SUBJECTIVE -- PATIENT NARRATIVE:NAEO. Pt reports voiding spontaneously w/o problem -REVIEW OF SYSTEMS- COMMENT: ROS negative for all systems unless otherwise stated in HPI -- OBJECTIVE -- VITALS (02/26 10:33 - 02/27 10:33):Temperature F: 97.9 (97.5 - 98.5)Temperature source: AxillaryPulse Rate 68 (55 - 75)Respiratory rate: 19 (12 - 31)BP: 117/64 (107/56 - 313/313)Blood pressure source: Monitor I/Os (02/26 07:00 - 02/27 07:00):Net 985Intake 2,760Output 1,775 -EXAM- GENERAL: Well developed, well nourished, in no apparent distress.HEAD: Normocephalic, atraumatic.NECK: incision CDICHEST: Grossly normal appearance.ABDOMEN: Soft, non-tender, no organomegaly, no masses noted.MUSCULOSKELETAL: N o deformity, no scoliosis noted of thoracic or lumbar spine, joint ROM grossly normal, normal gait and station.NEUROLOGICAL: No focal deficits , cranial nerves II-XII grossly intact, normal sensation, normal reflexes, normal coordination, normal muscle strength, normal tone.PULSES: Pulses normal in all extremities.SKIN: Intact without significant lesions, or rashes.PSYCHIATRIC: Alert and oriented to time, person, place. Normal mood and affect, intact judgment and insight. -- DATA -- MEDICATIONS PANTOPRAZOLE 40 MG PO DAILYDEXTROSE 50%-WATER 25 ML IV ASDIR PRNtraMADol HCL 50 MG PO Q6H PRNASPIRIN 81 MG PO DAILYLABETALOL HCL 10 MG IV Q6H PRNbisacodyL 10 MG RECTAL DAILY PRNGLUCAGON 1 MG IM ASDIR PRNDOCUSATE SODIUM 200 MG PO DAILYpolyethylene glycoL 3350 1 PKT PO DAILYLOSARTAN POTASSIUM 100 MG PO DAILYTAMSULOSI N 0.4 MG PO DAILYclopidogreL 75 MG PO DAILYamLODIPine BESYLATE 10 MG PO DAILYSOTALOL HCL 80 MG PO BIDHYDROmorphone HCL 0.25 MG IV Q6H PRNATORVASTATIN CALCIUM 80 MG PO BEDTIMEhydrALAZINE HCL 10 MG IV Q6H PRN LABS FE W/TOTAL IRON BINDING CAP (02/26/23 16:40)IRON 92TOTAL IRON BINDING CAPACITY 286IRON SATURATION 32 FERRITIN (02/26/23 16:40)FERRITIN 684.5 H RETIC COUNT (02/26/23 16:40)RETIC CT AUTOMATED 2.[address] ABSOLUTE 54.80 Signed in PatientKeeper by Estela Padilla MD on 3 at 10:34 Cosigned by AUGUSTIN BAJWA MD on 02/27/23 at 11:50 at 1150 at 1150ATTENTION * EDITS and/or ADDENDA must be made in Patient Keeper for this note. Edits and ammendments created in [employer] are no t visible in Patient Keeper or the legal medica l record ([facility]). * RPT #: [id number] OF REPORTPRProgress [id number]:33:00P.ZP-[id number] v ailable for patient [id number]:51:00 2023-02-26 19:28:00 [id number]:28:00 [facility] ([facility]) Internal Med. Consultation REPORT #: [id number] REPORT STATUS: Signed DATE: 02/26/23 TIME: 1927 PATIENT: MATTHEW REYNOLDS UNIT #: [id number] #: [id number] ROOM #: P.0223 BED: 1 : 4 AGE: 68 SEX: M ATTEND: Augustin Bajwa MD ADM AUTHOR: Jasvir Giang MD ATTENTION * EDITS and/or ADDENDA must be made in Patient Keeper for this note. Edit s and ammendments created in [employer] are not visible in Patient Keeper or the legal medica l record ([facility]). * -- ASSESSMENT AND PLAN - - PROBLEMS: 1: Acute urinary retentionA/P: increas e flomax 0.8 mgmonitor post void residual 2: Carotid stenosisA/P: as per Dr. Bajwa 3: CAD (coronary artery disease)A/P: aspirin/ plvix 4: HypertensionA/P: amlodpinelosartan 5: Atrial fibrillationA/P: sotalol ADDITIONAL COMMENTS:dvt prophylaxis - SCD boots GI prophylaxis - PPI -- HISTORY -- REASON FOR CONSULT:post op management CHIEF COMPLAINT:difficulty urinating HPI:Mr. Reynolds is a 68 yr old male with PMHx of CAD s/p PCI/Stents to RCA and OM(09/18), Paroxysmal AFib, HTN, HLD, BPH, GERD and Critical Rt. ICA stenosi s whowas transferred to he CVICU from the OR on 02/25 after Rt. TCAR by , He is PO D 1 and he required straight cath x 2 due to urinary retention. Heneeded continued monitoring and I was asked at this point to participate in hiscare. hx of BPH on flomax 0.4 mg PAST MEDICAL HISTORY:Coronary artery dx, paroxysmal atrial fibrillation, hypertension,hyperlipidemia, benig n prostatic hyperplasia and acid reflux, TIA PAST SURGICAL HISTORY:ablation for afib in 10/2021, Herniated disc repair, Cholecystectomy -SOCIAL HISTORY- -TOBACCO USE- DETAILS/COMMENTS:Cigars -ALCOHOL USE- DATE OF LAST USE:2023-02-22 DETAILS/COMMENTS:Social Drinker -DRUG USE- DETAILS/COMMENTS:Marijuana MARITAL STATUS:Estrella lund -- ALLERGIES/HOME MEDS -- ALLERGIES:lisinopril (Unknown - Allergy)[EXTERNAL] Lisinopril (UNKNOW N - External allergies are for display only,consider adding to medical record for drug interaction check)[EXTERNAL] lisinopril LISINOPRIL (UNKNOWN - External allergies are for displayonly, consider adding to medical record for drug interaction check) HOME MEDICATIONS:amLODIPine Tab (Norvasc Tab) 10 MG P O DAILYAspirin EC Tab (Ecotrin Tab) 81 MG PO DAILYAtorvastatin Tab (Lipitor Tab) 80 MG PO BEDTIMEClopidogrel Tab (Plavix Tab) 75 MG PO BEDTIMELosartan Tab (Cozaar Tab) [address] Tab (Protonix Tab) 40 MG PO DAILYSotalol Tab (Betapace Tab) 80 MG PO DAILYTamsulosin Cap (Flomax Cap) 0.4 MG PO DAILY -- SUBJECTIVE -- -REVIEW OF SYSTEMS- GENERAL: Negative for fever, malaise, fatigue.EYES: Negative for blurry vision. No diplopia.EARS/NOSE/THROAT: Negative for sore throat. No otalgia. No rhinorrhea.BREAST: Negative for change in shape, swelling, masses, nipple discharge, pain, skin changes.RESPIRATORY : Negative for dyspnea or wheeze. No cough. CARDIOVASCULAR: Negative for chest pain or palpitations. No extremity swelling.GASTROINTESTINAL: Negative for abdomina l pain or nausea. No emesis. No diarrhea.MUSCULOSKELETAL: Negative for joint stiffness, pain, or arthralgias.SKIN: Negative for rashes. No pruritus.NEUROLOGICAL: Negative for headache. No vertigo. Denies paresthesias.PSYCHIATRIC: Negative for specific complaints.ENDOCRINE: Negative for cold intolerance, heat intolerance, polyphagia, polydipsia, polyuria, weight change, fatigue.HEMATALOGIC / LYMPHORETICULAR: Negative for excessive bleeding, unusual masses.ALLERGIC / IMMUNOLOGIC: Negative for heat/cold intolerance, polydipsia, or polyuria. -- OBJECTIVE -- VITALS (02/25 19:28 - 02/26 19:28):Temperature F: 97.6 (97.4 - 98.8)Temperature source: OralPulse Rate 69 (55 - 93)Respiratory rate: 18 (12 - 31)BP: 128/66 (107/53 - 313/313)Blood pressure source: Monitor I/Os (02/25 07:00 - 02/26 07:00):Net -980.00Intake 1,150.00Output 2,130 -EXAM- GENERAL: Well developed, well nourished, in no apparent distress.HEAD: Normocephalic, atraumatic.EYES: PERRL, EOM intact, conjunctiva and sclera clear, without nystagmus, lids normal.NOSE: No deformity, no discharge, no inflammation, no lesions.MOUTH: Oropharynx without deformities or lesions, normal mucosa..NECK: No masses, no thyromegaly, no abnormal cervical nodes, trachea midline.CHEST: Grossly normal appearance.LUNGS: Clear bilaterally with normal respiratory effort.HEART : Regular rate and rhythm, normal S1, S2, no murmurs, no rubs, no gallops, no clicks.ABDOMEN: Soft, non-tender, no organomegaly, no masses noted.MUSCULOSKELETAL: No deformity, no scoliosi s noted of thoracic or lumbar spine, joint ROM grossly normal, normal gait and station.EXTREMITIES: No clubbing, no cyanosis, n o edema.NEUROLOGICAL: No focal deficits, cranial nerves II-XII grossly intact, normal sensation, normal reflexes, normal coordination, normal muscle strength, normal tone.PULSES: Pulses normal in all extremities.GENITOURINARY: Normal external genitalia.SKIN: surgical incision site on right neck and left groinLYMPH NODES: No significant cervical node adenopathy. No significant axillary node adenopathy. No significant inguinal node adenopathy.PSYCHIATRIC : Alert and oriented to time, person, place. Tamanna l mood and affect, intact judgment and insight. -- DATA -- MEDICATIONS PANTOPRAZOLE 40 MG PO DAILYDEXTROSE 50%-WATER 25 ML IV ASDIR PRNtraMADol HCL 50 MG PO Q6H PRNASPIRIN 81 MG PO DAILYLABETALOL HCL 10 MG IV Q6H PRNbisacodyL 10 MG RECTAL DAILY PRNGLUCAGON 1 MG IM ASDIR PRNDOCUSATE SODIUM 200 MG PO DAILYpolyethylene glycoL 3350 1 PKT PO DAILYLOSARTAN POTASSIUM 100 MG PO DAILYTAMSULOSIN 0.4 MG PO DAILYclopidogreL 75 MG PO DAILYamLODIPine BESYLATE 10 MG PO DAILYSOTALOL HCL 80 MG PO BIDHYDROmorphone HCL 0.25 MG IV Q6H PRNATORVASTATIN CALCIUM 80 MG PO BEDTIMEhydrALAZINE HCL 10 MG IV Q6H PRN LABS FERRITIN (02/26/23 16:40)FERRITIN 684.5 H FE W/TOTAL IRON BINDING CAP (02/26/23 16:40)IRON 92TOTAL IRON BINDING CAPACITY 286IRON SATURATION 32 RETIC COUNT (02/26/23 16:40)RETIC CT AUTOMATE D 2.[address] ABSOLUTE 54.80 PHOS (02/26/23 03:36)PHOSPHOROUS 2.7 MAG (02/26/23 03:36)MAGNESIUM 1.8 CBC W/AUTO DIFF (02/26/23 03:36)WHITE BLOOD CELL 5.3RED BLOOD CELL 2.86 LHEMOGLOBIN 10.1L LHEMATOCRIT 29.1L LMEAN CELL VOLUME 101.7 HMEAN CELL HGB 35.3 HMEAN CELL HGB CONCENTRATION 34.7RED CELL DISTRIBUTION WIDTH 12.6 LPLATELET COUNT 216MEAN PLATELET VOLUME 8.9 NEUTROPHIL % 69.2LYMPHOCYTE % 16.7 LMONOCYTE % 10.8 HEOSINOPHIL % 1.9BASOPHIL % 0.4NEUTROPHIL # 3.64LYMPHOCYTE # 0.88 LMONOCYTE # 0.57EOSINOPHIL # 0.10BASOPHIL # 0.02 BASIC METABOLIC PANEL (02/26/23 03:36)SODIUM 139POTASSIUM 4.0CHLORIDE 108H HCARBON DIOXIDE 22GLUCOSE 116H HBLOOD UREA NITROGEN 10GLOMERULAR FILTRATION RATE >=60 max estimateCREATININE 0.70CALCIUM 8.8 PHOS ( 3 22:37)PHOSPHOROUS 3.1 MAG (02/25/23 22:37)MAGNESIUM 1.9 BASIC METABOLIC PANEL (02/25/23 22:37)SODIUM 142POTASSIUM 3.9CHLORIDE 109H HCARBON DIOXIDE 23GLUCOSE 110H HBLOOD UREA NITROGEN 11GLOMERULAR FILTRATION RATE >=60 max estimateCREATININE 0.70CALCIUM 8.2 L BASIC METABOLIC PANEL (02/25/23 20:43)SODIUM 137POTASSIUM 3.9CHLORIDE 107CARBON DIOXIDE 24GLUCOSE TNPBLOOD UREA NITROGEN TNPGLOMERULAR FILTRATION RATE TNPCREATININE TNPCALCIUM TNP PROTHROMBIN TIME (02/25/23 20:43)PROTHROMBIN LUIS E PATIENT 11.7INTERNATIONAL NORMAL RATIO 0.99 PHOS (02/25/23 20:43)PHOSPHOROUS TNP MAG (02/25/23 20:43)MAGNESIUM TNP CBC W/AUTO DIFF (02/25/23 20:43)WHITE BLOOD CELL 5.1RED BLOOD CELL 2.75 LHEMOGLOBIN 9.8L LHEMATOCRIT 28.8L LMEAN CELL VOLUME 104.7 HMEAN CELL HGB 35.6 HMEAN CELL HGB CONCENTRATION 34.0RED CELL DISTRIBUTION WIDTH 12.7 LPLATELET COUNT 215MEAN PLATELET VOLUME 9.0NEUTROPHIL % 66.1LYMPHOCYTE % 18.0 LMONOCYTE % 12.3 HEOSINOPHIL % 2.6BASOPHIL % 0.6NEUTROPHIL # 3.34LYMPHOCYTE # 0.91 LMONOCYTE # 0.62EOSINOPHIL # 0.13BASOPHIL # 0.03 PTT (02/25/23 20:43)THROMBOPLASTIN TIME PARTIAL 30.0 -- ATTESTATION -- TIME SPENT ON PATIENT CARE: - Direct - Counseling - Coordination of Care - > 50% of time spent on Counseling/Care Coordinatio n CARE ACTIVITIES / CARE COORDINATION: - I have seen and examined this patient - I have reviewed the progress in the clinical course since the lastexamination - I have discussed the patient's condition with other members of the care team Signed in PatientKeeper by Jasvir Giang MD o n 02/27/23 at 14:17 at 1417ATTENTION * EDITS and/or ADDENDA must be made in Patient Keeper for this note. Edits and ammendments created in [facility] [employer] [facility] are no t visible in Patient Keeper or the legal medica l record ([facility]). * RPT #: [id number] OF [id number]:00P.PK-N O [id number] for patient [id number]:02 2023-02-26 16:15:00 [id number] [facility] ([facility]) Intensive Car e Progress Note REPORT #: [id number] REPORT STATUS: Signed DATE: 02/26/23 TIME: 1615 PATIENT: MATTHEW REYNOLDS UNIT #: [id number] #: [id number] ROOM #: P.0223 BED: 1 : 54 AGE: 68 SEX: M ATTEND: Augustin Bajwa MD ADM AUTHOR: Fady Parsons MD ATTENTION * EDITS and/or ADDENDA must be made in Patient Keeper for this note. Edit s and ammendments created in [employer] [facility] are not visible in Patient Keeper or the legal medica l record ([facility]). * -- ASSESSMENT AND PLAN - - HOSPITAL COURSE TO DATE:Mr. Reynolds is a 68 yr ol d male with PMHx of CAD s/p PCI/Stents to RCA and OM(09/18), Paroxysmal AFib, HTN, HLD, BPH, GERD and Critical Rt. ICA stenosis whowas transferred to CVICU from the OR on 02/25 after Rt. TCAR b y , GENERAL ASSESSMENT:I have examined him, reviewed his EMR information and data and discussed hisplan of care with the ot r clinical and ancillary services. Assessment and Plan Post-procedural analgesia- On iv Acetaminophen, Tramadol H/o TIA now s/p TCAR as above- On ASA, Plavix S/p TCAR as abive- Clean R t supraclavicular incision site- Small static hematoma- D/w Dr. Bajwa who is following CAD s/p recent PCI/Stents- On ASA, Plavix HTN- Restarting home Amlodipine/Losartan H/o Paroxysmal Afib- In SR on Sotalol Nutrition- On Cardiac diet H/o Gerd- On PPI Adequate BUN, CrBP H with urinary retention- S/p straight cath X 2 - Starting Flomax and will reassess Anemia- Adequate and equilibrating- Sending anemia profile Prophylaxis- Pharmacoprophylaxis held 2/ 2 high risk of bleeding/hematoma- PPI- SCDs Medications reviewed with the Clinical Pharmacis t Full Code per patient D/w Dr. Bajwa and O K to transfer to the CVIMU. Dr. Giang given signout. -- OBJECTIVE -- VITALS (02/25 16:15 - 02/26 16:15):Temperature F: 97.5 (97.4 - 98.8)Temperature source: OralPulse Rate 59 (55 - 93)Respiratory rate: 18 (12 - 32)BP: 156/71 (107/53 - 313/313)Blood pressure source: Monitor I/Os (02/25 07:00 - 02/26 07:00):Net -980.00Intake 1,150.00Output 2,130 -- DATA -- MEDICATIONS DEXTROSE 50%-WATER 25 ML IV ASDIR PRNSODIUM PHOSPHATE with/in SODIUM CHLORIDE 0.9% 45 MM IV ASDIR (PRN)ASPIRIN 81 MG PO DAILYbisacodyL 10 MG RECTAL DAILY PRNGLUCAGON 1 MG IM ASDIR PRNDOCUSATE SODIUM 200 MG PO DAILYSODIUM PHOSPHATE with/in SODIUM CHLORIDE 0.9% 30 MM IV ASDIR (PRN)polyethylene glycoL 335 0 1 PKT PO DAILYLOSARTAN POTASSIUM 100 MG PO DAILYTAMSULOSIN 0.4 MG PO DAILYclopidogreL 75 MG PO DAILYSODIUM PHOSPHATE with/in SODIUM CHLORIDE 0.9% 15 MM IV ASDIR (PRN)MAGNESIUM SULFATE 4 G I V ASDIR (PRN)amLODIPine BESYLATE 10 MG PO DAILYPANTOPRAZOLE 40 MG PO DAILYLABETALOL HCL 10 MG IV Q6H PRNSOTALOL HCL 80 MG PO BIDHYDROmorphone HCL 0.25 MG IV Q6H PRNATORVASTATIN CALCIUM 80 MG PO BEDTIMEhydrALAZINE HCL 10 MG IV Q6H PRNMAGNESIUM SULFATE 2 GM IV ASDIR (PRN)POTASSIUM CHLORIDE 20 MEQ PO ASDIR PRN -- ATTESTATION -- CARE ACTIVITIES / CARE COORDINATION: - I have reviewe d the history and repeated the palencia elements - I have seen and examined this patient - I have reviewed the progress in the clinical course since the lastexamination - I have discussed the patient's condition with other members of the care team ADDITIONAL DETAIL:[id number] Signed in PatientKeeper by FADY PARSONS MD on 02/26/23 at 16:40 at 1640ATTENTION * EDITS and/or ADDENDA must be made in Patient Keeper for this note. Edits and ammendments created in [facility] are no t visible in Patient Keeper or the legal medica l record ([facility]). * [facility] #: [id number] OF REPORTPRProgress [id number]:15:[id number] v ailable for patient [id number]:40:40 2023-02-26 09:47:00 [id number]:00 [facility] ([facility]) Vascular Surg . Progress Note REPORT #: [id number] REPORT STATUS: Signed DATE: 02/26/23 TIME: 946 PATIENT: MATTHEW REYNOLDS UNIT #: [id number] #: [id number] ROOM #: [facility] BED: 1 : 54 AGE: 68 SEX: M ATTEND: Augustin Bajwa MD ADM AUTHOR: Estela Padilla MD R4 ATTENTION * EDITS and/or ADDENDA must be made in Patient Keeper for this note. Edit s and ammendments created in [employer] [facility] are not visible in Patient Keeper or the legal medica l record ([facility]). * -- CO-SIGNATURE -- COMMENTS:I saw and examined the patient. I agree with the history and exam by Dr. Hightower the note attached. Signed in PatientKeeper by AUGUSTIN BAJWA MD on 02/27/23 at 11:49 -- ASSESSMENT AND PLAN -- GENERAL ASSESSMENT:68y o M w/ R carotid stenosis s/p R TCAR 8/5 -OK to downgrade-continue ASA, statin, plavix-on flowma x for urinary retention-OK to DC if able to void today-FU in clinic in 1-2 wks -- SUBJECTIVE -- PATIENT NARRATIVE:urinary retention overnight s/ p straight cath x2. Still w/ difficulty urinatingthis AM. Otherwise doing well w/ no complaints. -REVIEW OF SYSTEMS- COMMENT: ROS negative for all systems unless otherwise stated in HPI -- OBJECTIVE -- VITALS (02/25 09:47 - 02/26 09:47):Temperature F: 97.4 (97.4 - 98.8)Temperature source: OralPulse Rate 66 (52 - 93)Respiratory rate: 16 (11 - 33)BP: 170/74 (116/48 - 175/87)Blood pressure source: Arterial I/Os (02/25 07:00 - 02/26 07:00):Net -980.00Intake 1,150.00 Output 2,130 -EXAM- GENERAL: Well developed, well nourished, in no apparent distress.HEAD: Normocephalic, atraumatic.NECK: incision CDICHEST: Grossly normal appearance.ABDOMEN: Soft, non-tender, no organomegaly, no masses noted.MUSCULOSKELETAL: N o deformity, no scoliosis noted of thoracic or lumbar spine, joint ROM grossly normal, normal gait and station.NEUROLOGICAL: No focal deficits, cranial nerves II-XII grossly intact, normal sensation, normal reflexes, normal coordination, normal muscle strength, normal tone.PULSES: Pulses normal in all extremities.SKIN: Intact without significant lesions, or rashes.PSYCHIATRIC: Alert and oriented to time, person, place. Normal mood and affect, intact judgment and insight. -- DATA -- MEDICATIONS SOTALOL HCL 80 MG PO DAILYASPIRIN 81 MG PO DAILYamLODIPine BESYLATE 10 MG PO DAILYPANTOPRAZOLE 40 MG PO DAILYLABETALOL HCL 10 MG IV Q6H PRNLOSARTAN POTASSIUM 100 MG PO DAILYTAMSULOSIN 0.4 MG PO DAILYclopidogreL 75 MG PO DAILYHYDROmorphone HCL 0.25 MG IV Q6H PRNATORVASTATIN CALCIUM 80 MG PO BEDTIMEhydrALAZINE HCL 10 MG IV Q6H PRN LABS PEG S (02/26/23 03:36)PHOSPHOROUS 2.7 MAG (02/26/23 03:36)MAGNESIUM 1.8 CBC W/AUTO DIFF (02/26/23 03:36)WHITE BLOOD CELL 5.3RED BLOOD CELL 2.86 LHEMOGLOBIN 10.1L LHEMATOCRIT 29.1L LMEAN CELL VOLUME 101.7 HMEAN CELL HGB 35.3 HMEAN CELL HGB CONCENTRATION 34.7RED CELL DISTRIBUTION WIDTH 12.6 LPLATELET COUNT 216MEAN PLATELET VOLUME 8.9NEUTROPHIL % 69.2LYMPHOCYTE % 16.7 LMONOCYTE % 10.8 HEOSINOPHIL % 1.9 BASOPHIL % 0.4NEUTROPHIL # 3.64LYMPHOCYTE # 0.88 LMONOCYTE # 0.57EOSINOPHI L # 0.10BASOPHIL # 0.02 BASIC METABOLIC PANEL (02/26/23 03:36)SODIUM 139POTASSIUM 4.0CHLORIDE 108H HCARBON DIOXIDE 22GLUCOSE 116H HBLOOD UREA NITROGEN 10GLOMERULAR FILTRATION RATE >=60 max estimateCREATININE 0.70CALCIUM 8.8 PHOS ( 3 22:37)PHOSPHOROUS 3.1 MAG (02/25/23 22:37)MAGNESIUM 1.9 BASIC METABOLIC PANEL (02/25/23 22:37)SODIUM 142POTASSIUM 3.9CHLORIDE 109H HCARBON DIOXIDE 23GLUCOSE 110H HBLOOD UREA NITROGEN 11GLOMERULAR FILTRATION RATE >=60 max estimateCREATININE 0.70CALCIUM 8.2 L BASIC METABOLIC PANEL (02/25/23 20:43)SODIUM 137POTASSIUM 3.9CHLORIDE 107CARBON DIOXIDE 24GLUCOSE TNPBLOOD UREA NITROGEN TNPGLOMERULAR FILTRATION RATE TNPCREATININE TNPCALCIUM TNP PROTHROMBIN TIME (02/25/23 20:43)PROTHROMBIN LUIS E PATIENT 11.7INTERNATIONAL NORMAL RATIO 0.99 PHOS (02/25/23 20:43)PHOSPHOROUS TNP MAG (02/25/23 20:43)MAGNESIUM TNP CBC W/AUTO DIFF (02/25/23 20:43)WHITE BLOOD CELL 5.1RED BLOOD CELL 2.75 LHEMOGLOBIN 9.8L L HEMATOCRIT 28.8L LMEAN CELL VOLUME 104.7 HMEAN CELL HGB 35.6 HMEAN CELL HGB CONCENTRATION 34.0RED CELL DISTRIBUTION WIDTH 12.7 LPLATELET COUNT 215MEAN PLATELET VOLUME 9.0NEUTROPHIL % 66.1LYMPHOCYTE % 18.0 LMONOCYTE % 12.3 HEOSINOPHIL % 2.6BASOPHIL % 0.6NEUTROPHIL # 3.34LYMPHOCYTE # 0.91 LMONOCYTE # 0.62EOSINOPHIL # 0.13BASOPHIL # 0.03 PTT (02/25/23 20:43)THROMBOPLASTIN TIME PARTIAL 30. 0 COMPREHENSIVE METABOLIC PANEL (02/25/23 11:07)SODIUM 141POTASSIUM 3.8CHLORIDE 110 HCARBO N DIOXIDE 24GLUCOSE 104BLOOD UREA NITROGEN 12GLOMERULAR FILTRATION RATE >=60 max estimateCREATININE 0.70TOTAL PROTEIN 5.6 LALBUMI N 3.8CALCIUM 8.0 LBILIRUBIN TOTAL 0.9SGOT/AST 38 HSGPT/ALT 51 HALKALINE PHOSPHATASE 71.0 PHOS (02/25/23 11:07)PHOSPHOROUS 3.5 PTT (02/25/23 11:07)THROMBOPLASTIN TIME PARTIAL 30.9 MAG (02/25/23 11:07)MAGNESIUM 1.4 L CBC W/AUTO DIFF (02/25/23 11:07)WHITE BLOOD CELL 4.1L LRED BLOOD CELL 2.68 LHEMOGLOBIN 9.5L LHEMATOCRIT 27.7L LMEAN CELL VOLUME 103.4 HMEAN CELL HGB 35.4 HMEAN CELL HGB CONCENTRATION 34.3RED CELL DISTRIBUTION WIDTH 12.7 LPLATELET COUNT 189MEAN PLATELET VOLUME 8.9NEUTROPHIL % 63.4LYMPHOCYTE % 24.5 MONOCYTE % 6.9EOSINOPHIL % 3.7BASOPHIL % 0.5NEUTROPHIL # 2.59LYMPHOCYTE # 1.00MONOCYTE # 0.28EOSINOPHIL # 0.15BASOPHIL # 0.02 LACTIC ACID (02/25/23 11:07)LACTIC ACID 0.40 L PROTHROMBIN TIME (02/25/23 11:07)PROTHROMBIN TIME PATIENT 12.7INTERNATIONAL NORMAL RATIO 1.08 ACT ( 3 09:49)COAGULATION TIME ACTIVATED 353 H Signed in PatientKeeper by Estela Padilla MD R4 on 3 at 09:50 Cosigned by AUGUTSIN BAJWA MD on 02/27/23 at 11:49 at 1149 at 1149ATTENTION * EDITS and/or ADDENDA must be made in Patient Keeper for this note. Edits and ammendments created in [employer] [facility] are no t visible in Patient Keeper or the legal medica l record ([facility]). * RPT #: [id number] OF REPORTPRProgress [id number]:[id number] v ailable for patient [id number]:51:00 2023-02-25 14:00:00 [id number]:00 [facility] ([facility]) Intensive Car e Consultation REPORT #: [id number] REPORT STATUS: Signed DATE: 02/25/23 TIME: 1400 PATIENT: MATTHEW REYNOLDS UNIT #: [id number] #: [id number] ROOM #: P.0223 BED: 1 : 54 AGE: 68 SEX: M ATTEND: Augustin Bajwa MD ADM AUTHOR: Theodore Nickerson MD ATTENTION * EDITS and/or ADDENDA must be made in Patient Keeper for this note. Edit s and ammendments created in [employer] are not visible in Patient Keeper or the legal medica l record ([facility]). * -- ASSESSMENT AND PLAN - - HOSPITAL COURSE TO DATE:68 yr [facility]. Pt transferred to [facility] for TCAR with Dr. Bajwa. 02/25/23 I n the CVICU s/p TCAR. GENERAL ASSESSMENT:Assessmen t and PlanPt is s/p TCAR.CAD with angioplasty and stenting s/p (PCI with coronary stents x 2 to th e RCAand OM1 on 09/18/22), PAF s/p ablation, Hypertension, hyperlipidemia, BPH, Acidreflux, TIA NeuroTIA- no sedation- Dilaudid PRN pt has pain from the neck incision site CVsCADCarotid Artery StenosisParoxysmal AFibHTNHLD- no pressors. started on Losartan, Amlodipine, Sotalol, statin- Dr. Bajwa is following Resp- on room air GIGERD- normal diet RenalBPH with urinary retention- Will follow BUN/Cr/UOP- on Tamsulosin for BPH, may need straight cath- Monitor UOP and renal function. Replace lytes as indicated HemeAnemia Right Chest hematoma-Trend H/H, plt coags. Transfuse Plts RBCs PRN ID- no signs of infection Endo- monitor BG- cover with Insulin SS Prophylaxis- SCD- PPI/H2 Disposition: remain in ICU Full code per patient Medications reviewed with the clinical pharmacist Theodore Nickerson, [facility] -- HISTORY -- CHIEF COMPLAINT:s/p TCAR HPI:68 Y Mal e with pmh of CAD with angioplasty and stenting s/ p (PCI with coronarystents x 2 to the RCA and OM1 on 09/18/22), PAF s/p ablation, Hypertension,hyperlipidemia, BPH, Acid reflux, TIA presents in the CVICU s/p TCAR forasymptomatic 80% right internal carotid arter y stenosis with Dr. Gordon-Ouw02/25/23. He had cardiac cath and cerebral angi[facility] at [facility] confirmingcritical right internal carotid artery stenosis. PAST MEDICAL HISTORY:Coronary artery dx, paroxysmal atrial fibrillation, hypertension,hyperlipidemia, benig n prostatic hyperplasia and acid reflux, TIA PAST SURGICAL HISTORY:ablation for afib in 10/2021, Herniated disc repair, Cholecystectomy -SOCIAL HISTORY- -TOBACCO USE- DETAILS/COMMENTS:Cigars -ALCOHOL USE- DATE OF LAST USE:2023-02-22 DETAILS/COMMENTS:Social Drinker -DRUG USE- DETAILS/COMMENTS:Marijuana MARITAL STATUS:Estrella lund -- SUBJECTIVE -- PATIENT NARRATIVE:Overnight Events: No acute overnight events. 10 System, 2 point ROS negative except for above. -REVIEW OF SYSTEMS- GENERAL: Negative for fever, malaise, fatigue.EYES: Negative for blurry vision. No diplopia.EARS/NOSE/THROAT: Negative for sore throat. No otalgia. No rhinorrhea.BREAST: Negative for change in shape, swelling, masses, nipple discharge, pain, skin changes.RESPIRATORY : Negative for dyspnea or wheeze. No cough.CARDIOVASCULAR: Negative for chest pain or palpitations. No extremity swelling.GASTROINTESTINAL: Negative for abdomina l pain or nausea. No emesis. No diarrhea.GENITOURINARY: Negative for dysuria, frequency, or urgency. No gross hematuria.MUSCULOSKELETAL: Negative for joint stiffness, pain, or arthralgias.SKIN: Negative for rashes. No pruritus.NEUROLOGICAL: Negative for headache. No vertigo. Denies paresthesias.PSYCHIATRIC: Negative for specific complaints.ENDOCRINE: Negative for cold intolerance, heat intolerance, polyphagia, polydipsia, polyuria, weight change, fatigue.HEMATALOGIC / LYMPHORETICULAR: Negative for excessive bleeding, unusual masses.ALLERGIC / IMMUNOLOGIC: Negative for heat/cold intolerance, polydipsia, or polyuria. -- OBJECTIVE -- VITALS (02/24 14:00 - 02/25 14:00):Temperature F: 98.0Temperature C: 36.5Temperature source: OralPulse Rate 59Respiratory rate: 18BP: 121/79 -EXAM- GENERAL: Well developed, well nourished, in no apparent distress.HEAD: Normocephalic, atraumatic.EYES: PERRL, EOM intact, conjunctiva and sclera clear, without nystagmus, lids normal.NOSE: No deformity, no discharge, no inflammation, no lesions.MOUTH: Oropharynx without deformities or lesions, normal mucosa.. NECK: No masses, no thyromegaly, no abnormal cervical nodes, trachea midline.CHEST: Grossly normal appearance.LUNGS: Clear bilaterally with normal respiratory effort.HEART: Regular rate and rhythm, normal S1, S2, no murmurs, no rubs, no gallops, no clicks.ABDOMEN: Soft, non-tender, no organomegaly, no masses noted.MUSCULOSKELETAL : No deformity, no scoliosis noted of thoracic or lumbar spine, joint ROM grossly normal, normal gait and station.EXTREMITIES: No clubbing, no cyanosis, no edema.NEUROLOGICAL: No focal deficits, cranial nerves II-XII grossly intact, normal sensation, normal reflexes, normal coordination, normal muscle strength, normal tone.PULSES: Pulses normal in all extremities.SKIN: surgical incision site on righ t neck and left groinLYMPH NODES: No significant cervical node adenopathy. No significant axillar y node adenopathy. No significant inguinal node adenopathy.PSYCHIATRIC: Alert and oriented to time, person, place. Normal mood and affect, intact judgment and insight. -- DATA -- ALLERGIE S lisinopril - SWELLING OF FACE;Reported By: Servando Post MEDICATIONS ASPIRIN 81 MG PO DAILYLOSARTAN POTASSIUM 100 MG PO DAILYTAMSULOSI N 0.4 MG PO DAILYclopidogreL 75 MG PO DAILYPOTASSIUM CHLORIDE 20 MEQ PO ONCESOTALOL HC L 80 MG PO DAILYamLODIPine BESYLATE 10 MG PO DAILYPANTOPRAZOLE 40 MG PO DAILYLABETALOL HCL 10 MG IV Q6H PRNATORVASTATIN CALCIUM 80 MG PO BEDTIMEhydrALAZINE HCL 10 MG IV Q6H PRNMAGNESIUM SULFATE 2 GM IV ONCE LABS PHOS (02/25/23 11:07)PHOSPHOROUS 3.5 PTT (02/25/23 11:07)THROMBOPLASTIN TIME PARTIAL 30.9 MAG (02/25/23 11:07)MAGNESIUM 1.4 L CBC W/AUTO DIFF (02/25/23 11:07)WHITE BLOOD CELL 4.1L LRED BLOO D CELL 2.68 LHEMOGLOBIN 9.5L L HEMATOCRIT 27.7L LMEAN CELL VOLUME 103.4 HMEAN CELL HGB 35.4 HMEAN CELL HGB CONCENTRATION 34.3RED CELL DISTRIBUTION WIDTH 12.7 LPLATELET COUNT 189MEAN PLATELET VOLUME 8.9NEUTROPHIL % 63.4LYMPHOCYTE % 24.5MONOCYTE % 6.9EOSINOPHIL % 3.7BASOPHIL % 0.5NEUTROPHIL # 2.59LYMPHOCYTE # 1.00MONOCYTE # 0.28EOSINOPHIL # 0.15BASOPHIL # 0.02 LACTIC ACID (02/25/23 11:07)LACTIC ACID 0.40 L COMPREHENSIVE METABOLIC PANEL (02/25/23 11:07)SODIUM 141POTASSIUM 3.8CHLORIDE 110 HCARBON DIOXIDE 24GLUCOSE 104BLOOD UREA NITROGEN 12GLOMERULAR FILTRATION RATE >=60 max estimateCREATININE 0.70TOTAL PROTEIN 5.6 LALBUMIN 3.8CALCIUM 8.0 LBILIRUBIN TOTAL 0.9SGOT/AST 38 HSGPT/ALT 51 HALKALINE PHOSPHATASE 71.0 PROTHROMBIN TIME (02/25/23 11:07)PROTHROMBIN TIME PATIENT 12.7INTERNATIONAL NORMAL RATIO 1.08 ACT ( 3 09:49)COAGULATION TIME ACTIVATED 353 H -- ATTESTATION -- TIME SPENT ON PATIENT CARE: - Critical care: time spent apart from any procedure 50 minutes CARE ACTIVITIES / CARE COORDINATION: - I have reviewed the history and repeated the palencia elements - I have seen and examined this patient - I have reviewed the progress in the clinical course since the lastexamination - I have discussed the patient's condition with other members of the care team Signed in PatientKeeper by THEODORE NICKERSON MD on 02/25/23 at 20:05 at 2005ATTENTION * EDITS and/or ADDENDA must be made in Patient Keeper for this note. Edits and ammendments created in [employer] [employer] [facility] are no t visible in Patient Keeper or the legal medica l record ([facility]). * RPT #: [id number] OF REPORTMVMpuqlqfjkezr2450-09-73Q80:00:00P.PK-N O [id number] for patient [id number]:06:54 2023-02-25 11:06:00 [id number]:06:00 [facility] ([facility]) Brief Operative Report REPORT #: [id number] REPORT STATUS: Signed DATE: 02/25/23 TIME: 1106 PATIENT : MATTHEW REYNOLDS UNIT #: [id number] #: [id number] ROOM #: P.0223 BED: 1 : 54 AGE: 68 SEX: M ATTEND: Augustin Bajwa MD [facility] AUTHOR: Bjorn Baez MD R4 ATTENTION * EDITS and/or ADDENDA must be made in Patient Keeper for this note. Edit s and ammendments created in [employer] [facility] are not visible in Patient Keeper or the legal medica l record ([facility]). * -- BRIEF OP NOTE -- PRE-OPERATIVE DIAGNOSIS:right carotid stenosis POST-OPERATIVE DIAGNOSIS:right carotid stenosis NAME OF PROCEDURE:Right transcarotid artery revascularization SURGEON:Amanda Bajwa MD [facility] ATTENDANT(S):Dr. Baez FINDINGS:successful carotid stent placement ESTIMATED BLOOD LOSS (ML'S):50 SPECIMEN(S) REMOVED AND/OR ALTERED:non e Signed in PatientKeeper by Bjorn Baez MD R4 on 02/25/23 at 11:08 Cosigned by AUGUSTIN BAJWA MD on 02/25/23 at 11:38 at 1138 at 1138ATTENTION * EDITS and/or ADDENDA must be made in Patient Keeper for this note. Edits and ammendments created in [facility] are no t visible in Patient Keeper or the legal medica l record ([facility]). * RPT #: [id number] OF REPORTOPOperative [id number]:06:00P.[id number] V Available for patient [id number]:38:50 2023-02-25 11:03:00 [id number]:03:00 [facility] ([facility]) Operative Report REPORT #: [id number] REPORT STATUS: Signed DATE: 02/25/23 TIME: 110 PATIENT: MATTHEW REYNOLDS UNIT #: [id number] #: [id number] ROOM #: P.0223 BED: 1 : 54 AGE: 68 SEX: M ATTEND: Augustin Bajwa MD ADM AUTHOR: Augustin Bajwa MD ATTENTION * EDITS and/or ADDENDA must be made in Patient Keeper for this note. Edit s and ammendments created in [employer] are not visible in Patient Keeper or the legal medica l record ([facility]). * -- OPERATION -- SURGERY START DATE/TIME:2023-02-25 11:03 PRE-OPERATIVE DIAGNOSIS:1. Asymptomatic 80% right internal carotid artery stenosis.2. Coronary artery disease and recent coronary angioplasty and stenting. 3. Atrial fibrillation. POST-OPERATIVE DIAGNOSIS:1. Asymptomatic 80% right internal carotid artery stenosis.2. Coronary artery disease and recent coronary angioplasty and stenting.3. Atrial fibrillation. INDICATION(S):Patient is a 68-year-old man with a history of coronary artery disease, atrialfibrillation, remote history of TIA, and greater than 80% right internalcarotid artery stenosis. He had cardiac cath and cerebral angiogram at [facility] confirming critical right internal carotid artery stenosis. Idiscussed risks and benefits of medical management versus open endarterectomyversus hybrid transcarotid artery revascularization. He understands the riskof stroke, cranial nerve injury, and heart attack and wishes to proceed withcarotid repair. Given his coronary artery disease and recent PCI and stenting,the patient and I preferred right TCAR. NAME OF PROCEDURE:1. Right transcarotid artery revascularization [address] En[address] 8 x 40mm stent and flow reversal neuro protection system.2. Ultrasound-guided left common femoral vein puncture. TIME OUT COMPLETED:Yes SURGEON:Augustin Bajwa MD LUBE ATTENDANT(S):Bjorn Baez MD ANESTHESIA: Monitored anesthesia care and local ESTIMATED BLOOD LOSS:50 ml's FINDINGS:Ultrasound imaging was stored demonstrating left common femoral vei n patencyand successful intraluminal needle cannulation. Initial angiogram confirmedcritical right internal carotid artery stenosis. After deployment of stentacross the carotid bulb and proximal internal carotid artery, there wasresidual 50% stenosis that prompted post sten t angioplasty. Completionangiogram showed 30% residual stenosis. SPECIMEN(S) REMOVED AND/OR ALTERED:None COMPLICATION(S):None -- DESCRIPTION -- DESCRIPTION OF TECHNIQUE/PROCEDURE:Medications: 2 g Ancef; 10,000 units heparin; 100 mg protamine. Fluoroscopy time: 3.3 minutes. Radiation: 26 mGy . Contrast: 35 mL of Isovue-300. Carotid clamp and flow reversal time: 12 minutes. Procedure detail : Patient was identified in the preprocedure holding area and brought into theoperating room where monitored anesthesia care was administered . The right neckand bilateral groins were prepped and draped in usual sterile fashion.Intravenous antibiotics were given. A timeout was performed. A mixture of 1% lidocaine and 0.5% ropivacaine was infused into the left groinand right neck. A micropuncture needle was used to cannulate the left commonfemoral vein in an antegrade fashion under ultrasound guidance. A skin nickwas made a t the puncture site and an 8 Eritrean sheath was placed. A transverseincision was made just above the right clavicle with a #10 blade. Dissectionthrough the subcutaneous tissues was carried out with electrocautery. The 2bellies of the sternocleidomastoid muscle were an d a self-retainingretractor was placed in the wound. The omohyoid muscle was elevated superiorly and the common carotid artery was encountered. Heparin was given. The common carotid artery was circumferentially dissected free and encircledwith a vessel loop. A 5-0 Prolene pursestring suture was placed in theanterior arterial wall. Due to the depth and angulation, a separate stabincision was made 2 c m inferior to the supraclavicular incision. Amicropuncture needle was used to cannulate the common carotid artery throughthe separate stab incision within the pursestring suture. A micropuncture wirewas inserted into the distal common carotid artery but not beyond the carotidbulb. A micropuncture sheath was placed 2 cm into the common carotid artery.Right carotid angiogram was then performed. There was significant overlap ofthe internal and external carotid arteries and the best display of the carotidbifurcation was left anterior oblique. Th e obturator and micropuncture wirewere reinserted and used to cannulate the external carotid artery. The sheathwas advanced and the wire was exchanged for a 0.035 inch Amplatz wire. An [address] sheath was placed over the wire 2 cm into the common carotidartery. The obturato r and wire were removed and the 2 sheaths were connected. Based on preoperative measurements, a n 8 x 40 mm [facility] a 0.014 inch wire. A TCAR timeout was performed with bloodpressure raised above 140 mmHg and ACT greater than 300 seconds. A clamp wasapplied to the common carotid artery proximal to the sheath to initiate flowreversal. The wire was navigated across the stenotic segment into the internalcarotid artery. The stent was also advanced over the wire. Flow reversal wasbriefly stopped and angiogram was performed through the sheath confirming thelocation of the stenosis an d correct stent placement. The stent was thendeployed under fluoroscopy and the delivery system was removed and the patient. Repeat angiogram showed there was 50% stenosis within the stent. A [address]5 x 35 mm balloon was advanced across the stented segment. Balloon angioplastywas performed in the balloon was deflated and removed from the patient. Repeatangiogram showed 30% residual stenosis. There was some spasm in the internalcarotid artery. The wire was withdrawn into the stented segment and repeatangiogram showed resolution of the spasm with good flow into the distalinternal carotid and middle cerebral artery. The patient was awake andneurologically intact. The wire was withdrawn. Flow reversal was stopped by removing the common carotid artery clamp. Thetubing between the 2 sheaths was disconnected and blood was allowed to flowback into the left common femoral vein sheath by gravity. The right commoncarotid artery sheath was removed and the pursestring suture was tied down withgood hemostasis. Protamine was given. The left common femoral vein sheath wasremoved and direct pressure was held over the puncture site for 7 minutes withgood hemostasis. The wound was inspected for hemostasis and closed in layerswit h 3-0 Vicryl suture followed by 4-0 Monocryl in a subcuticular fashion.Steri-Strips and sterile dressings were applied. The patient tolerated theprocedure well and was transported to the cardiovascular intensive care unit insatisfactor y condition. Lap, needle, and instrument counts were correct. I was scrubbed and presentfor the entire case. Signed in PatientKeeper by Augustin Bajwa MD on 02/25/23 at 11:25 at 1125ATTENTION * EDITS and/or ADDENDA must be made in Patient Keeper for this note. Edits and ammendments created in [employer] are no t visible in Patient Keeper or the legal medica l record ([facility]). * RPT #: [id number] OF REPORTOPOperative [id number]:03:00P.[id number] V Available for patient [id number]:26:30 2023-02-25 11:02:00 [id number]:02:00 [facility] ([facility]) Med Order Sheet REPORT #: [id number] REPORT STATUS: Signed DATE: 02/25/23 TIME: 1102 PATIENT: MATTHEW REYNOLDS UNIT #: [id number] #: [id number] ROOM #: P.0223 BED: 1 : 54 AGE: 68 SEX: M ATTEND: Augustin Bajwa MD ADM AUTHOR: Bjorn Baez MD R4 ATTENTION * EDITS and/or ADDENDA must be made in Patient Keeper for this note. Edit s and ammendments created in [employer] are not visible in Patient Keeper or the legal medica l record ([facility]). * Admission Medication Reconciliation -- CONTINUED / CHANGED HOME MEDICATIONS -- Home: amLODIPine Tab (Norvasc Tab ) 10 MG PO DAILYHosp: amLODIPine Tab (Norvasc Tab) 10 MG PO DAILY Home: Aspirin EC Tab (Ecotrin Tab ) 81 MG PO DAILYHosp: Existing: Aspirin Chewable Tab (Aspirin Chewable Tab) 81 MG PO Now andthen DAILY Home: Atorvastatin Tab (Lipitor Tab) 80 MG PO BEDTIMEHosp: Atorvastatin Tab (Lipitor Tab) 8 0 MG PO BEDTIME Home: Clopidogrel Tab (Plavix Tab) 75 MG PO BEDTIMEHosp: Existing: Clopidogrel Tab (Plavix Tab) 75 MG PO Now and then DAILY fora TOTAL of 31 days Home: Losartan Tab (Cozaar Tab) 100 MG PO DAILYHosp: Losartan Tab (Cozaar Tab) 100 MG PO DAILY Home: Pantoprazole DR Tab (Protonix Tab) 40 MG PO DAILYHosp: Pantoprazole DR Tab (Protonix Tab) 40 MG PO DAILY Home: Sotalol Tab (Betapace Tab) 80 MG PO DAILYHosp: Sotalol Tab (Betapace Tab) 80 MG PO DAILY Home: Tamsulosin Cap (Flomax Cap) 0.4 MG PO DAILYHosp: Tamsulosin Cap (Flomax Cap) 0.4 MG PO DAILY :02 at 1102ATTENTION * EDITS and/or ADDENDA must be made in Patient Keeper for this note. Edits and ammendments created in [employer] are no t visible in Patient Keeper or the legal medica l record ([facility]). * [facility] #: [id number] OF REPORTCLClinical [id number]:02:00P.[id number] v ailable for patient [id number]:03:19 2023-02-15 06:34:00 [id number]:34:[id number] [address]HVCVKBK NAME: MATTHEW REYNOLDS ADMIT DATE: 02/15/23ACCOUNT NO: [id number] ROOM NO: AGE: 68 REPORT TYPE: eELECTROCARDIOGRAM SEX: M ADMITTING PHYSICIAN: ATTENDING PHYSICIAN: Augustin Bajwa MD Order:[id number] Reason : PROTOCOL Test Date/Time Stamp:TueFeb 15 2023 06:34:33Blood Pressure : / mmHGVent. Rate : 065 BPM Atrial Rate : 065 BPM P-R Int : 138 ms QRS Dur : 090 ms QT Int : 420 ms P-R-T Axes : 047 063 071 degrees QTc Int : 436 ms Normal sinus rhythmNonspecific ST abnormalityAbnormal ECGNo previous ECGs availableConfirmed by MEENAKSHI ARROYO ([id number]) on 02/23/2023 12:37:31 PM Referred By: Evan Fernandez Confirmed by:MEENAKSHI ARROYO at 1237 PATIENT NAME: MATTHEW REYNOLDS .[id number] AVAvailable for patient [id number]:37:47 2022-09-19 11:30:00 [id number]:30:00 [facility] ([facility] Discharg e SummaryREPORT#:[id number] REPORT STATUS: SignedDATE:09/19/22 TIME:1130 PATIENT: MATTHEW REYNOLDS UNIT #: [id number]#: [id number] [address] AGE : 67 SEX: M ATTEND: Maurice Rider [facility] AUTHOR: Mana Cardona MD * ALL edits or amendments must be made on the electronic/computer document * General InformationProblem List/A P: 1. CAD (coronary artery disease) A P Patient brought in electivel y for cardiac cath, stent placed to the RCA and OM [address] Posey Monitor overnight, labs in the a.m. and if stable possible discharge tomorrow 2. Carotid arterial disease A P Outpatient follow-up with Dr. Johnson Continue Plavix and aspirin and atorvastatin 80 mg p.o. daily Check hemoglobin A1c and lipid profile 3. Afib A P Patient is s/p ablation Continue aspirin daily Follow-up with his water resource specialist DVT prophylaxis Lovenox CODE STATUS Full code Date of admission:Observation Start Date: 09/18/22Date o f admission: 09/18/22 Discharge date: 09/19/22Discharge diagnosis:see hosp courseHospital course:Patient is a 67-year-old male with past medical history of atrial fibrillation status post ablation, on aspirin daily, history of carotid artery disease, who wa s brought in electively after he had stress test that was positive. Patient had a left heart cath and bilateral selective carotid angiograms by Dr Juan Posey,and stents was placed to the RCA and OM1 . Problem List/A P: 1. CAD (coronary artery disease) Patient brought in electively for cardiac cath, stent placed to the RCA and OM1 Medications per cardiology Dr. Posey Patient i s stable for discharge, discharged home with p.o. aspirin, Plavix, andatorvastatin 2. Carotid arterial disease Outpatient follow-up with Dr. Johnson Continue Plavix and aspirin and atorvastatin 80 mg p.o. dailyHemoglobin A1c 4.8, LDL 91 3. Afib Patient is s/p ablation Continue aspirin daily Follow-up with his water resource specialist Seen and examinedDischarge home stableDischarge time 35-minutePt. condition on discharge: improved, stable Med Rec Med RecDischarge meds:Continue taking these medications:LACTOBACILLUS ACIDOPHILUS (PROBIOTIC ACIDOPHILUS) 1 CAP CAP 1 CAPSULE ORAL DAILY. SOTALOL (BETAPACE) 80 MG TAB 80 MILLIGRAM ORAL TWICE DAILY. ESOMEPRAZOLE MAG (NexIUM 40 MG/PACKET) 40 MG SUSPENSION 40 MILLIGRAM ORAL DAILY. amLODIPine (NORVASC) 5 MG TAB 5 MILLIGRAM ORAL DAILY. ASPIRIN EC (ECOTRIN) 81 MG TAB.EC 81 MILLIGRAM ORAL DAILY. TAMSULOSIN ER (FLOMAX) 0.4 MG CAP.SR.24H 0.4 MILLIGRAM ORAL DAILY. LOSARTAN (COZAAR) 100 MG TAB 100 MILLIGRAM ORAL DAILY. Start taking the following new medications:CLOPIDOGREL (PLAVIX) 75 MG TAB 75 MILLIGRAM ORAL DAILY. Qty = 30 No Refills ATORVASTATIN (LIPITOR) 80 MG TAB 80 MILLIGRAM ORAL DAILY. Qty = 30 No Refills Discharge Instructions PCPDischarge to: Home/Self CareAdditional Discharge Routines: PCP Follow-Up , Civil Transportation Engineer Follow-UpDiet: Resume Home Diet/FeedsActivity: As ToleratedPrescriptions: o n chartDischarge management: greater than 30 mins Follow-up AppointmentsPCP follow-up: PCP: Evan Fernandez MD PCP follow up timeframe: In 3 daysConsulting provider 1: Provider 1: Remberto Vega MD Cardiology Specialty: CardiologyInterventional Consult follow up timeframe: In 1-2 weeks at 1132 RPT #: [id number] OF REPORT DSDischarge [id number]:30:00L.[id number] v ailable for patient [id number]:33:14 2022-09-19 04:13:00 [id number]:[id number] [place] [address] PATIENT NAME: MATTHEW REYNOLDS ADMIT DATE: 09/18/22ACCOUNT NO: [id number] ROOM NO: S204 AGE: 67 REPORT TYPE: eELECTROCARDIOGRAM SEX: M ADMITTING PHYSICIAN: Maurice Rider MD ATTENDING PHYSICIAN: Maurice Rider MD Order:[id number] Reason : CAD Test Date/Time Stamp:[place] Sep 19 2022 04:13:37Blood Pressure : / mmHGVent. Rate : 064 BPM Atrial Rate : 064 BPM P-R Int : 138 ms QRS Dur : 096 ms QT Int : 444 ms P-R-T Axes : 01 9 071 072 degrees QTc Int : 458 ms Normal sinus rhythmNormal ECGWhen compared with ECG of 19-SEP-2022 04:12,No significant change was foundConfirmed by REMBERTO VEGA ([id number]) on 09/19/2022 7:57:42 AM Referred By: Maurice Rider Confirmed by:REMBERTO VEGA at 0757 PATIENT NAME: MATTHEW REYNOLDS .[id number] AVAvailable for patient [id number]:58:18 2022-09-19 04:12:00 [id number] [facility] [address] [place] [address] PATIENT NAME: MATTHEW REYNOLDS ADMIT DATE: 09/18/22ACCOUNT NO: [id number] ROOM NO: L.S204 AGE: 67 REPORT TYPE: eELECTROCARDIOGRAM SEX: M ADMITTING PHYSICIAN: Maurice Rider MD ATTENDING PHYSICIAN: Maurice Rider MD Order:[id number] Reason : CAD/PCI Test Date/Time Stamp:[place] Sep 19 2022 04:12:55Blood Pressure : / mmHGVent. Rate : 065 BPM Atrial Rate : 065 BPM P-R Int : 176 ms QRS Dur : 096 ms QT Int : 442 ms P-R-T Axes : 07 3 067 076 degrees QTc Int : 459 ms Normal sinus rhythmNormal ECGWhen compared with ECG of 18-SEP-2022 08:07,No significant change was foundConfirmed by REMBERTO VEGA ([id number]) on 09/19/2022 7:57:25 AM Referred By: Maurice Rider Confirmed by:REMBERTO VEGA at 0757 PATIENT NAME: MATTHEW REYNOLDS .[id number] AVAvailable for patient [id number]:57:48 2022-09-18 10:30:00 [id number]:30:00 [facility] ([facility])Hospitalist History PhysicalREPORT#:[id number] REPORT STATUS: SignedDATE:09/18/22 TIME:1030 PATIENT: MATTHEW REYNOLDS UNIT #: [id number]#: [id number] ROOM/BED: RichardK613-9TNJ: 54 AGE : 67 SEX: M ATTEND: Maurice Rider [facility] AUTHOR: Mana Cardona MD * ALL edits o r amendments must be made on the electronic/computer document * History of Presen t Illness HPIChief complaint:S/P LHCPCP:PCP: Evan Fernandez MD HPI:Patient is a 67-year-old male with past medical history of atrial fibrillation status post ablation, on aspirin daily, history of carotid artery disease, who wa s brought in electively after he had stress test that was positive. Patient had a left heart cath today and bilateral selective carotid angiograms by Dr. Posey, and stents was placed to the RCA and OM1.After the procedure patient is met in [facility] area, denies any complaints currently. Past medical historyAs above in the HPI Past surgical historyA-fib ablationCholecystectomyCardiac stents this admission Social historyNever smoked cigarettesWith cigarsDrinks red wine daily about 2 to 3 glassesNo illicit drug use AllergiesLisinopril Family historyReviewed and noncontributory to current illness Home medicationsHome medications have been resumed, see the MAR History Medication/Allergy-Vaccine HxAllergies:Coded Allergies:lisinopril (Intermediate, RASH-HIVES 09/14/21) Review of SystemsConstitutional:Denies: fever. Skin:Denies : itching. Eyes:Denies: visual loss/blurred. Respiratory:Denies: non productive cough, SOB. Cardiovascular:Denies: chest pain. GI:Denies: nausea, vomiting. Musculoskeletal:Denies: extremity swelling. Heme:Denies: bleeding. Neuro:Denies: dizziness. Psych:Denies: agitation . OBJECTIVEVS/I O:Vital Signs Date Temp Pulse Res p B/P B/P Mean Pulse Ox FiO2 09/18 36.0-36.7 58-69 12-31 137-189/68-96 98-100 Last Documented: Result Date Time Pulse Ox 100 09/18 1030 Pulse 6 1 09/18 1030 Resp 15 09/18 1030 B/P 138/68 09/18 1015 O2 Delivery Room air 09/18 0900 Temp 36.7 09/18 0830 24 hour I O ending at 0700: 09/18 070 0 09/17 1900 Intake Total Output Total Balance Patient 85 kg Weight Weight Stated/Reported Measurement Method Patient Weight and BMI Weight (kg): 85.000 BMI: 28.5 General appearance: alert , awakeHead/Eyes: atraumatic, clear cornea, normal eyelids/periorb., normocephalic, PERRLNeck: full range of motion, non-tenderCardiovascular: tamanna l capillary refill, normal heart soundsRespiratory : clear to auscultation, no distressAbdomen: non-tender, normal bowel sounds, soft, no distentionExtremities: moves all, normal capillary refill, normal range of motion, no edemaNeuro/PRODUCT DEVELOPMENT WORKER: alert, oriented X 3Skin: dry, intactLymphatics: neck normal Diagnosis, Assessment PlanProblem List/A P: 1. CAD (coronar y artery disease) Patient brought in electively fo r cardiac cath, stent placed to the RCA and OM1 Medications per cardiology Dr. Posey Monitor overnight, labs in the a.m. and if stable possible discharge tomorrow 2. Carotid arterial disease Outpatient follow-up with Dr. Johnson Continue Plavix and aspirin and atorvastatin 80 mg p.o. daily Check hemoglobin A1c and lipid profile 3. Afib Patient is s/p ablation Continue aspirin daily Follow-up with his water resource specialist DVT prophylaxis Lovenox CODE STATUS Full code Resuscitation discussion: Discussed with: patientCode status: full code at 1337 RPT #: [id number] OF REPORT HPHistory and physical peuwcfqymbb4985-17-78J80:30:00L.[id number] AVAvailable for patient [id number]:37:56 2022-09-18 07:59:00 [id number] [facility] [address] [place] [address] PATIENT NAME: MATTHEW REYNOLDS ADMIT DATE: 09/18/22ACCOUNT NO: [id number] ROOM NO: L.S204 AGE: 67 REPORT TYPE: OPERATIVE REPORT SEX: M ADMITTING PHYSICIAN: Maurice Rider MD ATTENDING PHYSICIAN: Maurice Rider MD OPERATION DATE: 09/18/2022 PREOPERATIVE DIAGNOSES: POSTOPERATIVE DIAGNOSES: INDICATIONS FOR THE PROCEDURE: Dyspnea, coronary artery disease, ischemia, critical carotid disease for cardiac and carotid angiograms. TITLE OF PROCEDURE:1. Left heart catheterization.2. Bilateral selectiv e carotid angiograms.3. Drug-eluting stent of the mid RCA.4. Drug-eluting stent of obtuse marginal 1.5. Closing device. SURGEON: Remberto Vega MD. LUBE ATTENDANT: ESTIMATED BLOOD LOSS: Minimal. COMPLICATIONS: None. CONTRAST: 100 mL. ANESTHESIA: Conscious sedation with Versed and fentanyl, 1% lidocaine for local anesthesia. FINAL DIAGNOSIS: Calcified arteries; both in the carotids and the coronaries, two-vessel coronary artery disease, critical right carotid disease, elevated left ventricular end-diastolic pressure . The patient is now status post drug-eluting sten t x2 of the mid RCA and the obtuse marginal. RECOMMENDATIONS: Observation overnight followed by outpatient scheduling for right carotid surgery. PROCEDURE IN DETAIL: After informed consent, the patient was brought to the cardiac catheterization lab in a stable fasting nonsedated state. He was prepped and draped in the usual sterile fashion. After conscious sedation, 1% lidocaine was administered to the right common femoral artery area for local anesthesia. A 6-Eritrean sheath was placed in the right common femoral artery PATIENT NAME: MATTHEW REYNOLDS using standard techniques and fluoroscopy. After heparinization, left coronary angiogram showed calcified arteries, luminal irregularities of th e left main, 25% of the proximal LAD, 20% of the distal LAD, 30% diagonal plaquing. The circumfle x is very small after the large obtuse marginal, which has a 95% focal lesion with JONATHAN 3 flow. Right coronary angiogram showed heavy plaque buildup and calcifications, 20% proximal and 40% mid, followed by an 80% mid lesion eccentric, then 35% distal. The right coronary artery is dominant and there wasTIMI 3 flow. Left ventricular angiogram showed ejection fraction o f 65%, left ventricular end-diastolic pressure of 24 and no wall motion abnormalities or aortic valve gradients. Selective bilateral carotid angiogram showed the right internal is 90% calcified, the left internal is 40%, the left external is 50%. Proceeded with intervention on the right coronary artery first. The guide used was a JR4. The wire used was a Luge. The lesion was primary stented with an Rishi [place] 3 x 15 , 16 atmospheres that resulted in 0% residual. Then, I proceeded with intervention on the obtus e marginal. The guide used was an XB [id number], then the stent was a 2.75 x 12 Rishi [place]. The wir e was Luge, that resulted in 0% residual 1 inflation. The JONATHAN flow was normal at 3, before and after the intervention on both lesions. The right groin was sealed using Angio-Seal. There were no complications. The patient tolerated the procedure well and transferred back to the holding area for observation and then he will be admitted overnight for observation. The patient will come back for right carotid surgery in few weeks. The patient has been already loaded with aspirin and Plavix, and his ACT was adequate. Dictated By: Remberto Vega MD Date Dictated: 09/18/2022 07:59:21Date Transcribed: 09/18/2022 10:13:16SFD/TULJob #: [id number] ID: [id number] by Remberto Vega MD On 09/18/2022 01:18:21 PM at 0118 PATIENT NAME: MATTHEW REYNOLDS [id number]:13:00L.[id number] i lable for patient plzaUTETISJURQYQOW3592-96-15X74:18:45 2022-09-18 06:18:00 [id number] [place] [id number] PATIENT NAME: MATTHEW REYNOLDS ADMIT DATE: 09/18/22ACCOUNT NO: [id number] ROOM NO: [facility] AGE: 67 REPORT TYPE: eELECTROCARDIOGRAM SEX: M ADMITTING PHYSICIAN: Maurice Rider MD ATTENDING PHYSICIAN: Maurice Rider MD Order:[id number] Reason : CAD/PCI Test Date/Time Stamp:Sat Sep 18 2022 06:18:11Blood Pressure : / mmHGVent. Rate : 063 BPM Atrial Rate : 063 BPM P-R Int : 140 ms QRS Dur : 092 ms QT Int : 438 ms P-R-T Axes : 02 0 052 064 degrees QTc Int : 448 ms Normal sinus rhythmNormal ECGWhen compared with ECG of 18-SEP-2022 06:16,No significant change was foundConfirmed by REMBERTO VEGA ([id number]) on 09/18/2022 11:29:43 AM Referred By: Remberto Vega Confirmed by:REMBERTO VEGA at 1129 PATIENT NAME: MATTHEW REYNOLDS .[id number] AVAvailable for patient [id number]:31:31 2022-09-18 06:16:00 [id number] [facility] [id number] [place], [place] [id number] PATIENT NAME: MATTHEW REYNOLDS ADMIT DATE: 09/18/22ACCOUNT NO: [id number] ROOM NO: AGE: 67 REPORT TYPE: eELECTROCARDIOGRAM SEX: M ADMITTING PHYSICIAN: ATTENDING PHYSICIAN: Remberto Vega MD Order:[id number] Reason : CAD Test Date/Time Stamp:Sat Sep 18 2022 06:16:37Blood Pressure : / mmHGVent. Rate : 063 BPM Atrial Rate : 063 BPM P-R Int : 162 ms QRS Dur : 092 ms QT Int : 442 ms P-R-T Axes : 075 055 068 degrees QTc Int : 452 ms Normal sinus rhythmNormal ECGWhen compared with ECG of 15-SEP-2021 08:36,Nonspecific T wave abnormality no longer evident in Anterior leadsConfirmed by REMBERTO VEGA ([id number]) on 09/18/2022 6:39:00 AM Referred By: Remberto Vega Confirmed by:REMBERTO VEGA at 0639 PATIENT NAME: MATTHEW REYNOLDS .[id number] AVAvailable for patient [id number]:39:25 2022-09-17 07:43:00 [id number] [place] [address] PATIENT NAME: MATTHEW REYNOLDS ADMIT DATE: ACCOUNT NO: [id number] ROOM NO: AGE: 67 REPORT TYPE: HISTORY AND PHYSICAL SEX: M ADMITTING PHYSICIAN: ATTENDING PHYSICIAN: Remberto Vega MD Cardiology PATIENT NAME: MATTHEW REYNOLDS ADMIT DATE:09/18/2022DMISSION DATE: 09/18/2022 09:00:00 REGIONAL CRA: Remberto Vega M.D. REASON FOR ADMISSION: Cardiac and carotid angiograms for possiblerevascularization for dyspnea, ischemia, suspected significant coronar y arterydisease in a patient with known severe carotid disease. The patient is here forcardiac and carotid angiograms and possible revascularization. HISTORY OF PRESENT ILLNESS: Matthew is a 67-year-old patient of mine who I havebeen following in my office since 07/2021. The patient's recent evaluationshowed worsening carotid disease with right carotid now is above 80%. The leftcarotid continues to be less than 35%. His EKG remained stable. Echocardiogramshowing hypertensive changes. No valvular heart disease, normal ejectionfraction. Nuclear stress test showed moderate inferior ischemia, ejectionfraction 63%. Holter monitorin g showing less than 1% PVCs, no significantarrhythmias. Given the patient's significant carotid disease and ischemia onthe nuclear stress test, he is here for left heart catheterization and carotidangiograms to assess for his cardiac status prior to referral for carotidendarterectomy. The patient has a long history of paroxysmal atrialfibrillation, which is controlled on medications. He has multiplecardiovascular risk factors. No chest pains. He has had TIAs in the past. Noacute GI o r symptoms. No history of myocardial infarction or previouscardiac catheterization. PAST MEDICAL HISTORY: Remarkable for paroxysmal atrial fibrillation,hypertension, hyperlipidemia, benig n prostatic hyperplasia and acid reflux. PAST SURGICAL HISTORY: He has had herniated disk repair, cholecystectomy andablation for the AFib back in October 2021. ALLERGIES: LISINOPRIL MAKES HIS FACE SWELL. MEDICATIONS: Include pravastatin 80 mg daily, amlodipine 10 mg daily, m g b.i.d., losartan 100 mg daily, aspirin 81 mg daily. The patient used andi on Eliquis, but has not needed it since the ablation. SOCIAL HISTORY : There is no history of smoking. The patient does drinksocially. There is no history of street cherelle g use. FAMILY HISTORY: Negative for premature atherosclerosis. PATIENT NAME: MATTHEW REYNOLDS REVIEW OF SYSTEMS: Remarkable for the above and enclosed, occasiona l dizziness,snoring, benign prostatic hypertrophy symptoms. He had a TIA at age 49. Noacute GI or symptoms. Rest of the review of systems is enclosed. PHYSICAL EXAMINATION:GENERAL: Reveals a pleasant 67-year-old patient in no acute distress.VITAL SIGNS: Blood pressure 134/78, pulse 62 and regular, respiratory rate 16and unlabored, temperature afebrile.HEENT: Head atraumatic, normocephalic. Eyes, ENT examination within normal forage.NECK: Supple, no jugular venous distention, bruits or lymphadenopathy. Normalupstroke.LUNGS: Clear and resonant.HEART: Regular rate and rhythm. No murmurs or gallops.ABDOMEN: Soft, no tenderness, no organomegaly, no masses or bruits.CHEST: 2+ distal pulses. No edema, cyanosis or clubbing.NEUROLOGIC: Alert, alert and oriented x3. Examination appears to be nonfocal. LABORATORY DATA: Pending. Noninvasive cardiovascular workup enclosed. IMPRESSION: This is a 67-year-old patient with symptomatic coronary arterydisease with dyspnea and significant ischemia on the nuclear stress test. Hehas significant carotid disease with history o f TIA in the past, he will need aright carotid endarterectomy. The patient has history of paroxysmal atrialfibrillation, controlled on medications with no recurrence of fibrillation. Hehas multiple cardiovascular risk factors, he i s here for left heartcatheterization and bilateral selective carotid angiograms to assess hiscoronary artery disease and carotid disease for revascularization. Therecommendation is to proceed with the above-mentioned procedures. The risks andbenefits of the planned procedure were discussed in detail with the patient andavailabl e family members and he is willing to proceed. Res t as per orders. Dictated By: Remberto Vega MD Date Dictated: 09/17/2022 07:43:50Date Transcribed: 09/17/2022 08:39:00SFD/Bernardino #: [id number] ID: [id number] and Edited by Remberto Vega MD On 09/17/22 5:19:45 PM at 0525 PATIENT NAME: MATTHEW REYNOLDS and physical dzdbuvikwkf0534-23-86A11:39:00L.[id number] A VAvailable for patient [id number]:26:42 2021-09-15 08:36:00 [id number] [place] [id number] PATIENT NAME: MATTHEW REYNOLDS ADMIT DATE: 09/14/21ACCOUNT NO: [id number] QUENTIN Strong NO: Z.349 AGE: 66 REPORT TYPE: ELECTROCARDIOGRAM SEX: M ADMITTING PHYSICIAN:Ramon Garvey MD ATTENDING PHYSICIAN:Ramon Garvey MD Order:[id number] Reason : PAFIB Test Date/Time Stamp:TueSep 15 2021 08:36:26Blood Pressure : / mmHGVent. Rate : 080 BPM Atrial Rate : 080 BPM P-R Int : 154 ms QRS Dur : 092 ms QT Int : 394 ms P-R-T Axes : 086 056 072 degrees QTc Int : 454 ms Normal sinus rhythmNonspecific ST abnormalityAbnormal ECGWhen compared with ECG of 14-SEP-2021 08:01,No significant change was foundConfirmed by REMBERTO VEGA ([id number]) on 09/15/2021 4:23:11 PM Referred By : Ramon Garvey Confirmed by:REMBERTO VEGA at 1623 PATIENT NAME: MATTHEW REYNOLDS .[id number] AVAvailable for patient meddQHQWYRHSYTTLAF1189-23-07C32:23:40 2021-09-15 06:48:00 [id number]:48:00 [facility] ([facility]Card[facility] Progress NoteREPORT#:[id number] REPORT STATUS: SignedDATE:09/15/21 TIME: 0648 PATIENT: MATTHEW REYNOLDS UNIT #: [id number]#: [id number] [facility] AGE: 66 SEX: M ATTEND: Ramon Garvey MDADM AUTHOR: Ramon Garvey MD * ALL edits or amendments must be made on the electronic/computer document * SubjectivePatien t reports:No: chest pain, palpitations, shortness of breath. Objective GeneralVS/I O:24 hour I O ending at 0700: 09/15 0700 09/14 1900 Intake Total 1550.00 Output Total 1600 Balance -50.00 Intake, IV 750.00 Intake, Oral 800 Output, Urin e 1600 Patient 91.6 kg Weight Weight Bed scale Measurement Method Vital Signs: Date Time Temp Pulse Resp B/P B/P Pulse O2 O2 Flow FiO2 Mean O x Delivery Rate 09/15 0453 98.2 17 09/15 0300 74 1 7 148/72 103 97 09/15 0200 78 16 142/68 95 95 02/ 2 0100 72 17 143/68 97 98 09/15 0000 73 13 142/69 96 95 09/14 2345 98.8 09/14 2300 77 16 152/76 10 9 97 09/14 2200 79 16 160/77 110 97 09/14 2101 95 48 169/85 120 95 09/14 2018 98.2 09/14 1999 83 2 5 144/82 108 97 09/14 1911 84 20 151/78 108 97 09/14 1800 82 17 138/84 106 96 09/14 1700 78 17 131/81 101 96 09/14 1629 75 20 94 09/14 1605 76 09/14 1605 20 96 PATIENT WEIGHT: Weight (lb): 201Weight (oz): 15.09Weight (kg): 91.600 Medications:Active Meds + DC'd Last 24 HrsAspiri n (ASPIRIN EC) 81 MG DAILY PO Pantoprazole (PROTONIX) 40 MG DAILY PO Atorvastatin Calcium (LIPITOR) 20 MG BEDTIME PO Enoxaparin Sodium (LOVENOX) 45 MG Q12HR SUBQ Sotalol HCl (BETAPACE ) 80 MG BID PO Amlodipine Besylate (NORVASC TAB) 5 MG DAILY PO Sodium Chloride (SODIUM CHLORIDE 0.9%) 1,000 ML ONCE ONE IV (DC) Methylprednisolone Sodium Succinate (SOLU-Medrol ) 0 .STK-MED ONE .ROUTE (DC) Protamine Sulfate (PROTAMINE SULFATE) 0 .STK-MED ONE .ROUTE (DC) Fentanyl Citrate (SUBLIMAZE (C-II)) 0 .STK-MED ONE .ROUTE (DC) Phenylephrine HCl (JAYANT-SYNEPHRINE/NS 10MG/100ML) 100 ML .STK-MED ONE IV (DC) Lidocaine HCl (XYLOCAINE 2%) 0 .STK-MED ONE .ROUTE (DC) Fentanyl Citrate (SUBLIMAZE (C-II)) 0 .STK-MED ONE .ROUTE (DC) Midazolam HCl (VERSED (C-IV)) 0 .STK-MED ONE .ROUTE (DC) Propofol (DIPRIVAN) 0 .STK-MED ONE .ROUTE (DC) Heparin Sodium/Dextrose (HEPARIN 25,000UNITS/D5W 500ML) 500 ML .STK-MED ONE IV (DC) Heparin Sodium (HEPARIN SODIUM) 0 .STK-MED ONE .ROUTE (DC) Heparin Sodium/Sodium Chloride (HEPARIN 1000 UNITS/NS 500ML) 1,000 ML .STK-MED ONE IV (DC) Lidocaine (XYLOCAINE 1%) 0 .STK-MED ONE .ROUTE (DC) Sodium Chloride (SODIUM CHLORIDE 0.9%) 1,000 ML Q13H IV Physical ExamGeneral appearance: alert, awake, orientedHead/Eyes: atraumatic, normocephalicENT: moist mucosal membranesNeck: no JVDCardiovascular: CV assessment: regular rate and rhythmRespiratory: clear to auscultation, no distressLower extremity: LE assessment: no edemaMusculoskeletal: full range of motionNeuro/PRODUCT DEVELOPMENT WORKER: alert, oriented X 3, CN II-XII intactSkin: dry, intactWound/incision: Location:Bilateral groin Site condition: dressing clean dryPsychiatry: normal affect, normal judgment/insight, normal mood ResultsFindings/Data:Laboratory Tests 09/15 08/26 1 0428 0700 Chemistry Sodium (137 - 145 MMOL/L) 13 2 L 131 L Potassium (3.5 - 5.1 MMOL/L) 4.9 5.0 Chloride (98 - 107 MMOL/L) 102 99 Carbon Dioxide (22 - 30 MMOL/L) 26 28 Anion Gap (14 - 24 MMOL/L ) 9 L 9 L BUN (9 - 20 MG/DL) 11 16 Creatinine (0.6 6 - 1.25 MG/DL) 0.50 L 0.60 L Glomerular Filtr Rat e > 60 > 60 Glucose (74 - 106 MG/DL) 145 H 108 H Calcium (8.4 - 10.2 MG/DL) 9.2 9.6 Magnesium (1. 6 - 2.3 MG/DL) 1.9 Laboratory Tests 09/14 09/14 09/14 09/14 09/14 1255 1235 1208 1139 0700Coagulation INR (0.86 - 1.14) 1.0 APTT (25.1 - 36.5 SECONDS) 32.8 PT Patient/Control Mix (9.5 - 12.7 11.0SECONDS) Activated Coag Time (74 - 13 7 SEC) 190 H 303 H 297 H 339 H Laboratory Tests 09/15 09/14 0428 0700 Hematology WBC (3.8 - 9.8 K/MM3) 8.1 5.2 RBC (3.95 - 5.67 M/MM3) 3.42 L 4.03 Hgb (12.4 - 16.7 G/DL) 11.9 L 13.9 Hct (35. 9 - 49.5 %) 34.6 L 40.2 MCV (81.7 - 96.1 fL) 101 H 100 H MCH (27.6 - 33.2 pg) 34.8 H 34.5 H MCHC (32.9 - 35.5 %) 34.4 34.6 RDW (12.1 - 15.2 %) 12.6 12.6 Plt Count (129 - 368 K/MM3) 186 223 MP V (7.4 - 10.4 fl) 9.2 8.7 Neut % (Auto) (43 - 75 % ) 80.6 H 51.7 Lymph % (Auto) (14 - 44 %) 7.8 L 29. 5 Orange % (Auto) (4 - 13 %) 10.9 14.7 H Eos % (Auto ) (0 - 6 %) 0.0 2.3 Baso % (Auto) (0 - 2 %) 0.1 1. 0 Neut # (Auto) (2.0 - 7.6 K/mm3) 6.50 2.68 Lymph # (Auto) (1.0 - 3.8 K/mm3) 0.63 L 1.53 Orange # (Auto) (0.1 - 0.8 K/mm3) 0.88 H 0.76 Eos # (Auto) (0.0 - 0.2 K/mm3) 0.00 0.12 Baso # (Auto) (0.0 - 0.2 K/mm3) 0.01 0.05 Immature Gran % (0.0 - 2.0 %) 0.6 0.8 Nucleated RBC % (0 - 1.0 %) 0. 0 0.0 Nucleated RBCs # (Man) (0.0 - 0.1 K/mm3) 0.0 0 0.00 Laboratory Tests 09/14 0700 Chemistry Magnesium (1.6 - 2.3 MG/DL) 1.9 Laboratory Tests 09/14 0700 Coagulation APTT (25.1 - 36.5 SECONDS ) 32.8 Diagnosis, Assessment Plan Free Text DxA P NotesFree Text DxA P Notes:IMP: PAFIB s/p PVI PLAN: d/c home f/u one week. at 163 6 [facility] #:[id number] OF REPORTPRProgress [id number]:48:00Z.[id number] l able for patient idhrZOFJTEIZGJYCFF2070-50-48T46:36:25 2021-09-14 14:32:00 [id number] [place] [address] PATIENT NAME: MATTHEW REYNOLDS ADMIT DATE: 09/14/21ACCOUNT NO: [id number] QUENTIN Strong NO: Z.DC5 AGE: 66 REPORT TYPE: eTRANSESOPHAGEAL ECHO SEX: M ADMITTING PHYSICIAN:Ramon Garvey MD ATTENDIN G PHYSICIAN:Ramon Garvey MD *[facility]*[address] [place], [place] [address]Phone Transesophageal Echocardiogram Patient: Matthew ReynoldsStudy Date : 09/14/2021 BP: 154 / 87 Location: COCWUURN: [id number] : 1955 Age: 66 Height: / Gender: M Weight: /BMI/BSA: / *Ordering Physician: * Ramon Garvey MD *Interpreting Physician: * Ramon Garvey MD*Television Production Assistant: * Ariadna Marcelino RD, RVT - Indications: EPS. PVI. - Study data: Consent: The risks, benefits, and alternatives to theprocedur e were explained to the patient and informed consent wasobtained. Procedure: Initial setup: The patient was brought to thelaboratory in the fasting state.Intravenous access was obtained. SurfaceECG leads and pulse oximetric signals wer e monitored. Sedation. Moderatesedation was administered by cardiology staff. Transesophagealechocardiography was performed. Topical anesthesia was obtained usingviscous lidocaine. A transesophageal probe (SN: [id number]) was inserted bythe attending water resource specialist jonasou t kiko. Complete 2D, completespectral Doppler, and color Doppler. [facility] Patient status: Outpatient. Patient room number: 3. Studystatus: Scheduled. Study completion: The patient tolerated theprocedure well. There were no complications. - Findings Left ventricle: The cavity size is normal. Hypertrophy is noted. PATIENT NAME: MATTHEW REYNOLDS [id number] [place] [address] PATIENT NAME: MATTHEW REYNOLDS ADMIT DATE: 09/14/21ACCOUNT NO: [id number] ROOM NO: Z.DC5 AGE: 66 REPORT TYPE: eTRANSESOPHAGEAL ECHO SEX: M ADMITTING PHYSICIAN:Ramon Garvey MD ATTENDING PHYSICIAN:Ramon Garvey MD Systolic function is normal. Doppler parameters are consistent withabnormal left ventricular relaxation (grade 1 diastolic dysfunction).Right ventricle: The cavity size is normal.Left atrium: The atrium is normal in size. There is no left atrialappendage thrombus.Right atrium: The atrium is normal in size.Atrial septum: The septum is thickened. No defect or patent foramenovale is identified.Aorta: There is minimal atheromatous plaque noted.Aortic valve: The leaflets are mildly thickened.Mitral valve: The leaflets are normal thickness. There is mildregurgitation.Tricuspid valve: There is trivial regurgitation.Pulmonic valve: There is trivial regurgitation.Pericardium: There is no pericardial effusion. - Conclusions Summary: 1. Left ventricle: The cavity size is normal. Hypertrophy is noted. Systolic function is normal. Doppler parameters are consistent with abnormal left ventricular relaxation (grade 1 diastolic dysfunction).2. Atrial septum: The septum is thickened. No defect or patent foramen ovale is identified.3. Mitral valve: There is mild regurgitation. Prepared and electronically signed by Ramon Garvey MD09/14/2021 14:32 at 1432 PATIENT NAME: MATTHEW REYNOLDS whwqjhq1134-63-06U49:32:00Z.[id number] a ilable for patient [id number]:32:52 2021-09-14 13:57:00 [id number] [place] [address] PATIENT NAME: MATTHEW REYNOLDS ADMIT DATE: 09/14/21ACCOUNT NO: [id number] QUENTIN Strong NO: Z.DC5 AGE: 66 REPORT TYPE: CARDIAC CATHETERIZATION REPORT SEX: M ADMITTING PHYSICIAN:Ramon Garvey MD ATTENDING PHYSICIAN:Ramon Garvey MD E DATE: 09/14/2021 PROCEDURES:1. Comprehensive electrophysiology study with atrial fibrillationablation/pulmonary vein isolation.2. Three-dimensional interatrial mapping.3. Intracardiac echocardiography. PREOPERATIVE DIAGNOSIS: Paroxysmal atrial fibrillation. POSTOPERATIVE DIAGNOSIS: Paroxysmal atrial fibrillation. LOG ROPER: Ramon Garvey MD ANESTHESIA: General endotracheal anesthesia. PROCEDURE DETAILS: After informed consent was obtained explaining to thepatient the risks, benefits, and alternatives, the patient was brought to thecardiac catheterization lab in the fasting postabsorptive state. He was preppedand draped in sterile fashion. Local anesthesia was applied over the leftfemoral artery and vein as well as the right femoral vein. Access to thevessels was obtained using modified Seldinger technique with micropuncture kitand ultrasound guidance. A 6-Eritrean sheath was placed in the left femoral veinand secured in place with an 0 Ethibond suture. It was connected to a pressuretransducer for arterial pressure monitoring. A 6-Eritrean, locking 8-Eritrean, and9-Eritrean sheaths were placed in the left femoral vein. All sheaths wereaspirated and flushed and connected to heparinized saline infusion. An 8-Frenchsheath was placed in the right femoral vein. The sheath was removed and twoPerclose devices were placed in a preclose fashion. The 8-Eritrean sheath wasthen flushed, reassembled, and placed back in the right femora l vein. Thesheaths were connected to heparinized saline infusion. An intracardiacechocardiography catheter was advanced via the 9-Eritrean sheath an d placed in theright atrium. Intracardiac echocardiography was performed to visualize the leftatrium and interatrial septum. A Decapolar bidirectional catheter was advancedvia the locking 8-Eritrean sheath and placed in the coronary sinus. A 5-FrenchCournand catheter was advanced via the 6-Eritrean sheath and placed in the rightventricle. Adequate pacing and sensing was confirmed. The 8-Eritrean sheath wasexchanged for the VersaCross sheath over the J-tipped VersaCross wire. It was advanced into the superior vena cava. The J-tipped VersaCross wire was exchanged for the pigtail RF VersaCross wire , which was advanced through the sheath into the superior vena cava. The sheath and wire were withdrawn into the posterior PATIENT NAME: MATTHEW REYNOLDS septal region. After appropriate placement on the interatrial septum, atransseptal puncture was performed using RF energy through the wire. The wirewas advanced in the left atrium. The sheath was advanced over the septum. Thesheath was removed and wire retained. Progressive dilatatio n of the rightfemoral venous access site was then performed using a short 12-Eritrean, zirl57-Zjrssl sheath. The cryo FlexCath sheath was then preppe d and advanced overthe VersaCross wire into the left atrium. The dilator and wire were removed.The sheath was aspirated and flushed and connected to heparinized salineinfusion. After heparinization, a PentaRay catheter was prepped and advancedthrough the sheath. A three-dimensional left atrial map was created to definethe anatomy and voltage. The PentaRay catheter was then removed. Thecryoballoon was then prepped and advanced via the sheath into th e left atriumover the Achieve wire. Sequential isolation of the pulmonary veins was thenperformed at the left superior, left inferior, right inferior, and rightsuperior pulmonary veins. The balloon was removed and the PentaRay catheter wasthen advanced back into the left atrium. A post-isolation 3-dimensional map wasobtained. This confirmed entrance block. Ther e was a questionable gap in the left superior pulmonary vein; however, exit block was confirme d via pacing with the PentaRay. Esophogeal temperature monitoring was utilized throughout the procedure. Phrenic nerve pacing was utilized during right pulmonary vein isolation to monitor phrenic nerve integrity. At the end of the procedure, all catheters were removed. The sheaths were aspirated and flushed. The left femoral venous sheaths were removed and hemostasis achieved with a figure-of- eight suture. The cryo sheath was then aspirated and removed. Hemostasis was achieved with the Perclose sutures. Three interrupted 4-0 Prolene sutures were applied externally to close the skin. A left femoral arteriogram was obtained vi a the 6-Eritrean sheath. After confirmation of adequate placement of the sheath, a 6- Eritrean Angio-Seal device was deployed without complication. The patient tolerated the procedur e well with no complications. ABLATION DATA:LEFT SUPERIOR PULMONARY VEIN:FREEZE #1: -41 degrees a t 30 seconds, temperature juliet -57, duration 63seconds, esophageal temperature juliet 34.8 degrees C.FREEZE #2: -42 degrees C at 30 seconds , temperature juliet -57 degrees C, freezeduration 66 seconds.FREEZE #3: -32 degrees C at 30 seconds, temperature juliet 43 degrees C, freezeduration 180 seconds, esophageal temperature juliet 34.9.Nine seconds to 0 degrees C post-ablation. LEFT INFERIOR PULMONARY VEIN: -35 degrees C, time to isolation -44 degrees C at56 seconds, temperature juliet -53 degrees C, freeze duration 180 seconds,esophageal temperature juliet 35.3, 10 seconds to 0 degrees C. RIGHT INFERIOR PULMONARY VEIN: -34 degrees C at 30 seconds, temperature juliet-51 degrees C, freeze duration 180 seconds, esophageal temperature juliet 29.9degrees C, time to 0 degrees C 14 seconds. RIGHT SUPERIOR PULMONARY VEIN: -35 degrees at 30 seconds, temperature juliet -59degrees C, freeze duration 180 seconds, esophageal temperature juliet of 34.5degrees C. CONCLUSIONS: PATIENT NAME: MATTHEW REYNOLDS 1. Successful pulmonary vein isolation.2. Estimated blood loss 15 mL.3: No complications. Dictated By: Ramon Garvey MD WT: CATH:DAYANA/PEPGR/NTSDD: 09/14/2021 13:57:18DT: 09/14/2021 15:28:52Conf#: [id number]#: [id number] cc: Remberto Vega MD Authenticated and Edited by Ramon Garvey MD On 09/14/21 3:42:44 PM at 0345 PATIENT NAME: MATTHEW REYNOLDS [id number]:28:00Z.[id number] a ble for patient kxrlESIDFJZIXABMZC9955-74-77J01:57:54 2021-09-14 08:01:00 [id number] [place] [address] PATIENT NAME: MATTHEW REYNOLDS ADMIT DATE: 09/14/21ACCOUNT NO: [id number] QUENTIN Strong NO: Z.349 AGE: 66 REPORT TYPE: ELECTROCARDIOGRAM SEX: M ADMITTING PHYSICIAN:Ramon Garvey MD ATTENDING PHYSICIAN:Ramon Garvey MD Order:[id number] Reason : AFIB Test Date/Time Stamp:TueSep 14 2021 08:01:26Blood Pressure : / mmHGVent. Rate : 059 BPM Atrial Rate : 059 BPM P-R Int : 138 ms QRS Dur : 090 ms QT Int : 466 ms P-R-T Axes : 041 051 054 degrees QTc Int : 461 ms Sinus bradycardiaOtherwise normal ECGNo previous ECGs availableConfirmed by REMBERTO VEGA ([id number]) on 09/14/2021 4:18:46 PM Referred By: Ramon Garvey Confirmed by:REMBERTO VEGA at 1618 PATIENT NAME: MATTHEW REYNOLDS .[id number] AVAvailable for patient [id number]:59:34
[2023-06-26 01:20] LABS: Specific Gravity 1.011 (1.005-1.030); Urine Bacteria None Seen /HPF (<20); Urine Bilirubin NEGATIVE (Negative); Urine Blood 3+ (OVER) (Negative); Urine Clarity Extremely Turbid (Clear); Urine Color Dark-Yellow (Yellow); Urine Glucose NEGATIVE (Negative); Urine Protein 2+ (Negative); Urine RBC >50 /HPF (None Seen); Urine Urobilinogen Normal (Normal)
--- NOTE | 2023-06-26 01:39 | ER ---
Nurse's Notes [facility] Name: Matthew Reynolds Age: 68 yrs Sex: Male : 1955 Arrival Date: 06/26/2023 Time: 00:20 Bed 12 Private MD: Diagnosis: Urinary Retention;Hematuria, unspecified Presentation: 06/26 00:29 Chief complaint: Patient states: pt hasn't been able to urinate for approx 6-7 hours. as6 pt reports having a TURP almost 2 weeks ago. Coronavirus screen: At this time, the client does not indicate any symptoms associated with coronavirus-19. Ebola Screen: No symptoms or risks identified at this time. Initial Sepsis Screen: Does the patient meet any 2 criteria? No. Patient's initial sepsis screen is negative. Does the patient have a suspected source of infection? No. Patient's initial sepsis screen is negative. Risk Assessment: Do you want to hurt yourself or someone else? Patient reports no desire to harm self or others. Onset of symptoms was June 25, 2023 at 17:00. 00:29 Acuity: RUFUS 4 as6 00:29 Method Of Arrival: Wheelchair as6 Triage Assessment: 00:37 General: Appears uncomfortable, Behavior is cooperative, restless. Pain: Complains of as6 pain in suprapubic area. EENT: No deficits noted. No signs and/or symptoms were reported regarding the EENT system. Neuro: Level of Consciousness is awake, alert, obeys commands, Oriented to person, place, time, situation. Cardiovascular: Capillary refill < 3 seconds Patient's skin is warm and dry. Respiratory: Respiratory effort is even, unlabored, Respiratory pattern is regular, symmetrical. GI: Abdomen is distended, Reports lower abdominal pain. : Reports inability to void, pain in suprapubic area with urination. Derm: Skin is intact, is healthy with good turgor. Musculoskeletal: Circulation, motion, and sensation intact. Historical: - Allergies: 00:34 Lisinopril; as6 - PMHx: 00:34 Hypertension; Atrial fibrillation; Anemia; as6 - PSHx: 00:34 TURP; Cholecystectomy; Stented artery; as6 - Immunization history:: Adult Immunizations up to date. - Social history:: Smoking status: Patient denies any tobacco usage or history of. Screenin:38 [facility] ED Fall Risk Assessment (Adult) Score/Fall Risk Level 0 - 2 = Low Risk. Abuse as6 screen: Denies injuries from another. Abuse screen: Denies threats or abuse. Nutritional screening: No deficits noted. Tuberculosis screening: No symptoms or risk factors identified. Assessment: 00:38 General: see triage assessment . as6 Vital Signs: 00:29 BP 136 / 81; Pulse 76; Resp 20 S; Temp 97.1(TE); Pulse Ox 100% on R/A; Weight 81.65 kg as6 (R); Height 5 ft. 7 in. (R); Pain 8/10; 00:29 Body Mass Index 28.19 (81.65 kg, 170.18 cm) as6 00:29 Pain Scale: Adult as6 ED Course: 00:22 Patient arrived in ED. jj6 00:25 Mushtaq Woo DO is Attending Physician. ms3 00:34 Triage completed. as6 00:35 Vasquez Monique, THOMPSON is Primary Nurse. as6 00:35 Arm band placed on. as6 00:38 Placed in gown. Bed in low position. Call light in reach. as6 00:53 Andrade cath inserted, using sterile technique, 16 Fr., by ms, balloon inflated, to as6 gravity drainage, urine specimen collected. returned bloody urine. Patient tolerated well. 00:55 Urinalysis w/ reflexes Sent. as6 01:58 Provided Education on: how to use a leg bag . as6 01:58 No provider procedures requiring assistance completed. Patient did not have IV access as6 during this emergency room visit. Administered Medications: No medications were administered Medication: 00:38 VIS not applicable for this client. as6 Outcome: 01:38 Discharge ordered by . ms3 01:58 Discharged to home ambulatory, as6 01:58 Condition: stable 01:58 Discharge instructions given to patient, Instructed on discharge instructions, follow up and referral plans. Demonstrated understanding of instructions, follow-up care, 01:59 Patient left the ED. as6 Signatures: Mushtaq Woo DO DO ms3 Rosmery Lange jj6 Vasquez Monique, RN RN as6 Corrections: (The following items were deleted from the chart) 01:07 00:37 GI: No deficits noted. No signs and/or symptoms were reported involving the as6 gastrointestinal system. as6
--- NOTE | 2023-06-26 01:39 | EDPHYS ---
Physician Documentation [facility] Name: Matthew Reynolds Age: 68 yrs Sex: Male : 1955 Arrival Date: 06/26/2023 Time: 00:20 Bed 12 Private MD: ED Physician Mushtaq Woo HPI: 06/26 00:36 This 68 yrs old Male presents to ER via Wheelchair with complaints of Urinary Retention.ms3 00:36 68-year-old male with past medical history of hypertension, atrial fibrillation, anemia ms3 presents to the emergency department for urinary retention x8 hours. Patient states he had a TURP performed 2 weeks ago. Patient states today he drank beer and noticed he was unable to urinate. Patient states he is in severe discomfort. Patient denies alleviating or inciting factors. Historical: - Allergies: 00:34 Lisinopril; as6 - PMHx: 00:34 Hypertension; Atrial fibrillation; Anemia; as6 - PSHx: 00:34 TURP; Cholecystectomy; Stented artery; as6 - Immunization history:: Adult Immunizations up to date. - Social history:: Smoking status: Patient denies any tobacco usage or history of. ROS: 00:36 Constitutional: Negative for fever, and chills. Cardiovascular: Negative for chest ms3 pain, and palpitations. Respiratory: Negative for shortness of breath, cough, wheezing, and pleuritic chest pain, MS/Extremity: Negative for injury and deformity, 00:36 Abdomen/GI: Positive for Suprapubic tenderness, 00:36 All other systems are negative, Exam: 00:36 Constitutional: This is a well developed, well nourished patient who is awake, alert, ms3 and in no acute distress. Head/Face: Normocephalic, atraumatic. Eyes: Pupils equal round and reactive to light, extra-ocular motions intact. Lids and lashes normal. Conjunctiva and sclera are non-icteric and not injected. Periorbital areas with no swelling, redness, or edema. Chest/axilla: Normal chest wall appearance and motion. Nontender with no deformity. Cardiovascular: Regular rate and rhythm with a normal S1 and S2. No gallops, murmurs, or rubs. Normal PMI, no JVD. No pulse deficits. Respiratory: Lungs have equal breath sounds bilaterally, clear to auscultation and percussion. No rales, rhonchi or wheezes noted. No increased work of breathing, no retractions or nasal flaring. Abdomen/GI: Soft, non-tender, with normal bowel sounds. No distension or tympany. No guarding or rebound. No evidence of tenderness throughout. Skin: Warm, dry with normal turgor. Normal color with no rashes, no lesions, and no evidence of cellulitis. MS/ Extremity: Pulses equal, no cyanosis. Neurovascular intact. Full, normal range of motion. Vital Signs: 00:29 BP 136 / 81; Pulse 76; Resp 20 S; Temp 97.1(TE); Pulse Ox 100% on R/A; Weight 81.65 kg as6 (R); Height 5 ft. 7 in. (R); Pain 8/10; 00:29 Body Mass Index 28.19 (81.65 kg, 170.18 cm) as6 00:29 Pain Scale: Adult as6 MDM: 00:36 Patient medically screened. ms3 00:36 Differential diagnosis: UTI, urinary retention. ms3 01:38 Data reviewed: vital signs, nurses notes, lab test result(s), and as a result, I will ms3 discharge patient. Care significantly affected by the following chronic conditions: Hypertension. Counseling: I had a detailed discussion with the patient and/or guardian regarding the historical points, exam findings, and any diagnostic results supporting the discharge/admit diagnosis, lab results, the need for outpatient follow up, to return to the emergency department if symptoms worsen or persist or if there are any questions or concerns that arise at home. Special discussion: I discussed with the patient/guardian in detail that at this point there is no indication for admission to the hospital. It is understood, however, that if the symptoms persist or worsen the patient needs to return immediately for re-evaluation. ED course: Discussed urinalysis results with patient. Patient to follow-up with his urologist in 2 to 3 days. Patient understands and agrees with plan. All questions were answered. Return precautions discussed include worsening symptoms, or any other concerns. On reevaluation patient symptoms improved, patient is alert and orient x4, no apparent distress, nontoxic-appearing. Andrade catheter has 500 mL output. 06/26 00:36 Order name: Urinalysis w/ reflexes; Complete Time: 01:38 ms3 06/26 01:28 Order name: Urine Culture EDMS 06/26 00:36 Order name: Andrade; Complete Time: 00:53 ms3 06/26 01:39 Order name: Leg Bag; Complete Time: 01:58 ms3 Administered Medications: No medications were administered Disposition Summary: 06/26/23 01:38 Discharge Ordered Notes: Location: Home ms3 Condition: Stable ms3 Diagnosis - Urinary Retention ms3 - Hematuria, unspecified ms3 Followup: ms3 - With: Private Physician - When: 1 - 2 days - Reason: Recheck today's complaints Discharge Instructions: - Discharge Summary Sheet ms3 - Hematuria, Adult ms3 - Acute Urinary Retention, Male, [id number] ms3 Forms: - Medication Reconciliation Form ms3 - Thank You Letter ms3 - Antibiotic Education ms3 - Prescription Opioid Use ms3 - Patient Portal Instructions ms3 - Leadership Thank You Letter ms3 Signatures: Dispatcher [employer] Mushtaq Franco DO DO ms3 Vasquez Monique, RN RN as6
[2023-06-26 02:05] VITALS: BP 136/81; TEMP 97.1; O2SAT 100
== END 2023-06-26 01:59 | disposition home or self-care (01) ==
LOC: ER 00:20
DX: R33.9 Retention of urine, unspecified (principal); R31.9 Hematuria, unspecified; I10 Essential (primary) hypertension
CPT/HCPCS: 51702; 81001; 87086; 87088; 99284

== ENCOUNTER 2023-06-27 03:55 | Emergency (ER) | payer OTHER ==
--- OUTSIDE RECORDS SUMMARY | 2023-06-27 04:02 | XMS REPORT | Continuity of Care Document ---
:1955 Author Organization [facility] t Address [address] [facility] [address] [place] [address] Care Team Providers Name Role Phone Evan Fernandez MD Primary Care Physician Adriana Rivas MD Attending Clinician Abbe Carrizales Attending Clinician María Strickland APRN Attending Clinician Femi Burrows MD Attending Clinician Jarvis Waddell PT Attending [...] Date Expiration Date S joel [place] (MEDICARE [id number] 2020 REPLACEMENT PPO) 00:00:00 Problems Condition Condition [...] range Range Lower Lower Problem Active 2021-07 [facility] urinary Urinary 0-17 [facility] tract Tract 00:00: [...] [facility] FACE 7-25 [facility] 00:00: Health 00 are [facility] lisinopr DA Active [facility] F[facility] 7-24 [facility] 00:00: [facility] are [facility] lisinopr DA Active MO [facility] il 2-21 [place] 00:00: d 00 [facility] Lisinopr Allergy Active [facility] il to [facility] substanc Urology e Social History Social Habit Start Date Stop Date Quantity Comments Source History of tobacco Cigar Smoker [facility] Sexual [facility] Alcohol intake 2023-06-15 2023-06-15 Current drinker of [facility] 00:00:00 00:00:00 alcohol (finding) Hospita l History of Social 2023-06-15 2023-06-[address] function 00:00:00 00:00:00 Hospital Tobacco use and 2023-03-10 2023-03-10 Smokeless tobacco [facility] exposure 00:00:00 00:00:00 non-user Hospital Alcohol Comment 2023-03-10 2023-03-10 occaisional Method[facility] t 00:00:00 00:00:00 Hospital Sex Ass[birth year] At [birth year] [facility] 00:00:00 00:[facility]:00 Hospital Smoking Status Start Date Stop Date Source Never Smoker [facility] Zeke brock Tobacco smoking [facility] al consumption unknown Ex-smoker 2023-03-10 00:00:00 2023-03-10 [facility] 00:[facility] Medications Ordered Filled Start [...] .4mg Q.5D Take 1 Metho di (FLOMAX) -[address] 0.4 mg 15:22: (0.4 mg Hospita capsule 24 total) by l mouth 2 (two) times a day. CALCIUM 2022-07 Yes Take by Methodi ORAL -[address] 15:22: Hospita 24 l cholecalcif 2022-07 Yes Take by Met hodi marely, -[address] vitamin D3, 15:22: Hospit a (VITAMIN D3 24 l ORAL) Saccharomyc 2022-07 Yes 250mg Q.5D Take 1 Met hodi es -[address] boulardii 15:22: (250 mg Hospi [...] gram 24 needed l packet (diarrhea) . amLODIPine 2022-07 Yes 10mg QD Take 1 [facility] di (NORVASC) - tablet (10 st 10 mg 15:22: mg total) Hospita tablet 24 by mouth l daily. aspirin 2022-07 Yes 81mg QD Take 1 Methodi (ECOTRIN) -21 tablet (81 st 81 MG 15:22: mg total) Hospita enteric 24 by mouth l coated daily. tablet atorvastati 2022-07 Yes 80mg QD Take 1 Meth yosi n (LIPITOR) -21 tablet (80 st 80 MG 15:22: mg total) Hospita tablet 24 by mouth l daily. clopidogreL 2022-07 Yes 75mg QD Take 1 Meth yosi (PLAVIX) 75 -21 tablet (75 st mg tablet 15:22: mg total) Hos travis 24 by mouth l nightly. losartan 2022-07 Yes 100mg QD Take 1 Method i (COZAAR) 1-[address] 100 MG 15:22: (100 mg Hospita tablet 24 total) by l mouth daily. pantoprazol 2022-07 Yes 40mg QD Take 1 Meth yosi e -21 tablet (40 st (PROTONIX) 15:22: mg total) Ho spita 40 MG EC 24 by mouth l tablet daily. sotaloL 2022-07 Yes 80mg Q.5D Take 1 Methodi (sotalol -21 tablet (80 st AF) 80 MG 15:22: mg total) Hos travis tablet 24 by mouth 2 l (two) times a day. tamsulosin 2022-07 Yes .4mg Q.5D Take 1 Metho di (FLOMAX) -[address] 0.4 mg 15:22: (0.4 mg Hospita capsule 24 total) by l mouth 2 (two) times a day. CALCIUM 2022-07 Yes Take by Methodi ORAL 1-[address] 15:22: Hospita 24 l cholecalcif 2022-07 Yes Take by Met hodi marely, -[address] vitamin D3, 15:22: Hospit a (VITAMIN D3 24 l ORAL) Saccharomyc 2022-07 Yes 250mg Q.5D Take 1 Met hodi es 1-[address] boulardii 15:22: (250 mg Hospi ta (FLORASTOR) 24 total) by l 250 mg mouth 2 capsule (two) times a day. folic acid 2022-07 Yes 1{tbl} QD Take 1 Met hodi 2.5 mg + B6 -[address] 25 mg + B12 15:22: mouth Hospi ta 2 mg 24 daily. l (Folbic) 2.5-25-2 mg tablet ferrous 2022-07 Yes 325mg QD Take 1 Methodi sulfate 325 -[address] (65 FE) MG 15:22: (325 mg Hosp florecita tablet 24 total) by l mouth daily with breakfast. cholestyram 2022-07 Yes 1{packe Take 1 M ethodi ine 21 t} packet by st (QUESTRAN) 15:22: mouth as Hos travis 4 gram 24 needed l packet (diarrhea) . docusate 2022-07- Yes 100mg Q.5D Take 1 Metho di sodium 08-[address] (Colace) 00:00: 05:59 (100 mg Hospi ta 100 MG 00 :00 total) by l capsule mouth 2 (two) times a day for 30 days. docusate 2022-07- Yes 100mg Q.5D Take 1 Metho di sodium 08-[address] (Colace) 00:00: 05:59 (100 mg Hospi ta 100 MG 00 :00 total) by l capsule mouth 2 (two) times a day for 30 days. phenazopyri 2022-07- No 100mg Q.[id number] Take 1 Methodi dine 08-[id number] (Pyridium) 00:00: 05:59 3D (100 mg Hos travis 100 MG 00 :00 total) by l tablet mouth 3 (three) times a day as needed for bladder spasms for up to 10 days. phenazopyri 2022-07 No 100mg Q.[id number] Take 1 Methodi dine 08-[id number] (Pyridium) 00:00: 05:59 3D (100 [...] mg per day for 5 tablet days. sulfamethox 2022-07- No 1{tbl} Q.5D Take 1 M ethodi azole-trime 08-[address] thoprim 00:00: 05:59 mouth 2 Hospit a (Bactrim 00 :00 (two) l DS) 800-160 times a mg per day for 5 tablet days. finasteride 2022-07 Yes 5mg Take 1 Meth yosi (PROSCAR) 5 1-06 tablet (5 st mg tablet 00:00: mg total) Hos travis 00 by mouth l See Admin Instructio ns. Start 2 weeks prior to surgery finasteride 2022-07 Yes 5mg Take 1 Meth yosi (PROSCAR) 5 -06 tablet (5 st mg tablet 00:00: mg total) Hos travis 00 by mouth l See Admin Instructio ns. Start 2 weeks prior to surgery amlodipine amlodipine No amlodipine [facility] 10 mg 10 mg 10 mg [facility] tablet tablet tablet Urology amoxicillin amoxicillin No amoxicilli [facility] 500 mg 500 mg n 500 mg [facility] capsule capsule capsule Urolog y atorvastati atorvastati No atorvastat [facility] n 80 mg n 80 mg in 80 mg [facility] tablet tablet tablet Urology clopidogrel clopidogrel No clopidogre [facility] 75 mg 75 mg l 75 mg [facility] tablet tablet tablet Urology ibuprofen ibuprofen No ibuprofen [facility] 600 mg 600 mg 600 mg [facility] tablet tablet tablet Urology losartan losartan No losartan Karin ston 100 mg 100 mg 100 mg [facility] tablet tablet tablet Urology losartan losartan No losartan Karin ston potassium potassium potassium [facility] (bulk) (bulk) (bulk) Urology pantoprazol pantoprazol No pantoprazo [facility] e e le [facility] pantoprazol pantoprazol No pantoprazo [facility] e 40 mg e 40 mg le 40 mg [facility] tablet,jean tablet,jean tablet,del Urology yed release yed release ayed release pravastatin pravastatin No pravastati [facility] n [facility] pravastatin pravastatin No pravastati [facility] 80 mg 80 mg n 80 mg [facility] tablet tablet tablet Urology sotalol 80 sotalol 80 No sotalol 80 [facility] mg tablet mg tablet mg tablet [facility] Take 1 Take 1 Take 1 Urology tablet tablet tablet twice a day twice a day twice a by oral by oral day by route. route. oral route. sulfamethox sulfamethox No sulfametho [facility] azole 800 azole 800 xazole 800 [facility] mg-trimetho mg-trimetho mg-trimeth Urology prim 160 mg prim 160 mg oprim 160 tablet Take tablet Take mg tablet 1 tablet 1 tablet Take 1 every 12 every 12 tablet hours by hours by every 12 oral route oral route hours by for 3 days. for 3 days. oral route for 3 days. tamsulosin tamsulosin No tamsulosin [facility] 0.4 mg 0.4 mg 0.4 mg [facility] capsule capsule capsule Urolog y TAKE ONE TAKE ONE TAKE ONE CAPSULE BY CAPSULE BY CAPSULE BY MOUTH DAILY MOUTH DAILY MOUTH DAILY amlodipine amlodipine No amlodipine [facility] amlodipine amlodipine No amlodipine [facility] 10 mg 10 mg 10 mg [facility] tablet tablet tablet Urology amoxicillin amoxicillin No amoxicilli [facility] 500 mg 500 mg n 500 mg [facility] capsule capsule capsule Urolog y atorvastati atorvastati No atorvastat [facility] n 80 mg n 80 mg in 80 mg [facility] tablet tablet tablet Urology clopidogrel clopidogrel No clopidogre [facility] 75 mg 75 mg l 75 mg [facility] tablet tablet tablet Urology ibuprofen ibuprofen No ibuprofen [facility] 600 mg 600 mg 600 mg [facility] tablet tablet tablet Urology losartan losartan No losartan Karin ston 100 mg 100 mg 100 mg [facility] tablet tablet tablet Urology losartan losartan No losartan Karin ston potassium potassium potassium [facility] (bulk) (bulk) (bulk) Urology pantoprazol pantoprazol No pantoprazo [facility] e e le [facility] pantoprazol pantoprazol No pantoprazo [facility] e 40 mg e 40 mg le 40 mg [facility] tablet,jean tablet,jean tablet,del Urology yed release yed release ayed release pravastatin pravastatin No pravastati [facility] n [facility] pravastatin pravastatin No pravastati [facility] 80 mg 80 mg n 80 mg [facility] tablet tablet tablet Urology sotalol 80 sotalol 80 No sotalol 80 [facility] tablet mg tablet mg tablet [facility] Take 1 Take 1 Take 1 Urology tablet tablet tablet twice a day twice a day twice a by oral by oral day by route. route. oral route. amlodipine amlodipine No amlodipine [facility] sulfamethox sulfamethox No sulfametho [facility] azole 800 azole 800 xazole 800 [facility] mg-trimetho mg-trimetho mg-trimeth Urology prim 160 mg prim 160 mg oprim 160 tablet Take tablet Take mg tablet 1 tablet 1 tablet Take 1 every 12 every 12 tablet hours by hours by every 12 oral route oral route hours by for 3 days. for 3 days. oral route for 3 days. tamsulosin tamsulosin No tamsulosin [facility] 0.4 mg 0.4 mg 0.4 mg [facility] [...] days. 30 days. amlodipine amlodipine No amlodipine [facility] losartan losartan No losartan Karin ston potassium potassium potassium [facility] (bulk) (bulk) (bulk) Urology amlodipine amlodipine No amlodipine [facility] 10 mg 10 mg 10 mg [facility] tablet tablet tablet Urology amoxicillin amoxicillin No amoxicilli [facility] 500 mg 500 mg n 500 mg [facility] capsule capsule capsule Urolog y atorvastati atorvastati No atorvastat [facility] n 80 mg n 80 mg in 80 mg [facility] tablet tablet tablet Urology clopidogrel clopidogrel No clopidogre [facility] 75 mg 75 mg l 75 mg [facility] tablet tablet tablet Urology Colace 100 Colace 100 No Colace 100 [facility] mg capsule mg capsule mg capsule [facility] take one take one take one Uro logy capsule by capsule by capsule by mouth twice mouth twice mouth a day a day twice a following following day surgery surgery following surgery finasteride finasteride No finasterid [facility] 5 mg tablet 5 mg tablet e 5 mg [facility] TAKE 1 TAKE 1 tablet Urology TABLET BY TABLET BY TAKE 1 MOUTH DAILY MOUTH DAILY TABLET BY STARTING 2 STARTING 2 MOUTH WEEKS PRIOR WEEKS PRIOR DAILY TO SURGERY TO SURGERY STARTING 2 WEEKS PRIOR TO SURGERY ibuprofen ibuprofen No ibuprofen [facility] 600 mg 600 mg 600 mg [facility] tablet tablet tablet Urology losartan losartan No losartan Karin ston 100 mg 100 mg 100 mg [facility] tablet tablet tablet Urology losartan losartan No losartan Karin ston potassium potassium potassium [facility] (bulk) (bulk) (bulk) Urology pantoprazol pantoprazol No pantoprazo [facility] e e le [facility] pantoprazol pantoprazol No pantoprazo [facility] e e le [facility] pantoprazol pantoprazol No pantoprazo [facility] e 40 mg e 40 mg le 40 mg [facility] tablet,jean tablet,jean tablet,del Urology yed release yed release ayed release phenazopyri phenazopyri No phenazopyr [facility] dine 100 mg dine 100 mg idine 100 [facility] tablet Take tablet Take mg tablet Urology 1 tablet by 1 tablet by Take 1 mouth every mouth every tablet by 6-8 hrs prn 6-8 hrs prn mouth pain and pain and every 6-8 burning burning hrs prn following following pain and surgery surgery burning following surgery pravastatin pravastatin No pravastati [facility] n [facility] pravastatin pravastatin No pravastaashley [facility] 80 mg 80 mg n 80 mg [facility] tablet tablet tablet Urology sotalol 80 sotalol 80 No sotalol 80 [facility] mg tablet mg tablet mg tablet [facility] Take 1 Take 1 Take 1 Urology tablet tablet tablet twice a day twice a day twice a by oral by oral day by route. route. oral route. sulfamethox sulfamethox No sulfametho [facility] azole 800 azole 800 xazole 800 [facility] mg-trimetho mg-trimetho mg-trimeth Urology prim 160 mg prim 160 mg oprim 160 tablet take tablet take mg tablet one tablet one tablet take one by mouth by mouth tablet by twice daily twice daily mouth following following twice surgery surgery daily following surgery tamsulosin tamsulosin No tamsulosin [facility] 0.4 mg 0.4 mg 0.4 mg [facility] capsule capsule capsule Urolog y TAKE 1 TAKE 1 TAKE 1 CAPSULE BY CAPSULE BY CAPSULE BY MOUTH DAILY MOUTH DAILY MOUTH DAILY [facility]astatin p[facility] sotalol 80 sotalol 80 No 1 BID sotalol 80 [facility] mg tablet mg tablet mg tablet [facility] Take 1 Take 1 Take 1 Urology tablet tablet tablet twice a day twice a day twice a by oral by oral day by route. route. oral route. amlodipine amlodipine No amlodipine [facility] losartan losartan No losartan Karin ston potassium potassium potassium [facility] (bulk) (bulk) (bulk) Urology pantoprazol pantoprazol No pantoprazo [facility] e e le [facility] pantoprazol pantoprazol No pantoprazo [facility] e 40 mg e 40 mg le 40 mg [facility] tablet,jean tablet,jean tablet,del Urology yed release yed release ayed release pravastatin pravastatin No pravastati [facility] n [facility] sotalol 80 sotalol 80 No 1 BID sotalol 80 [place] mg tablet mg tablet mg tablet [facility] Take 1 Take 1 Take 1 Urology tablet tablet tablet twice a day twice a day twice a by oral by oral day by route. route. oral route. sulfamethox sulfamethox No sulfametho [facility] azole 800 azole 800 xazole 800 [facility] mg-trimetho mg-trimetho mg-trimeth Urology prim 160 mg prim 160 mg oprim 160 tablet Take tablet Take mg tablet 1 tablet 1 tablet Take 1 every 12 every 12 tablet hours by hours by every 12 oral route oral route hours by for 3 days. for 3 days. oral route for 3 days. tamsulosin tamsulosin No tamsulosin [facility] 0.4 mg 0.4 mg 0.4 mg [facility] capsule capsule capsule Urolog y Take 1 Take 1 Take 1 capsule capsule capsule every day every day every day by oral by oral by oral route for route for route for 30 days. 30 days. 30 days. amlodipine amlodipine No amlodipine [facility] amlodipine amlodipine No amlodipine [facility] 10 mg 10 mg 10 mg [facility] tablet tablet tablet Urology amoxicillin amoxicillin No amoxicilli [facility] 500 mg 500 mg n 500 mg [facility] capsule capsule capsule Urolog y atorvastati atorvastati No atorvastat [facility] n 80 mg n 80 mg in 80 mg [facility] tablet tablet tablet Urology clopidogrel clopidogrel No clopidogre [facility] 75 mg 75 mg l 75 mg [facility] tablet tablet tablet Urology ibuprofen ibuprofen No ibuprofen [facility] 600 mg 600 mg 600 mg [facility] tablet tablet tablet Urology losartan losartan No losartan Karin ston 100 mg 100 mg 100 mg [facility] tablet tablet tablet Urology losartan losartan No losartan Karin ston potassium potassium potassium [facility] (bulk) (bulk) (bulk) Urology pantoprazol pantoprazol No pantoprazo [facility] e e le [facility] pantoprazol pantoprazol No pantoprazo [facility] e 40 mg e 40 mg le 40 mg [facility] tablet,jean tablet,jean tablet,del Urology yed release yed release ayed release pravastatin pravastatin No pravastati [facility] n [facility] pravastatin pravastatin No pravastati [facility] 80 mg 80 mg n 80 mg [facility] tablet tablet tablet Urology sotalol 80 sotalol 80 No sotalol 80 [place] mg tablet mg tablet mg tablet [facility] Take 1 Take 1 Take 1 Urology tablet tablet tablet twice a day twice a day twice a by oral by oral day by route. route. oral route. sulfamethox sulfamethox No sulfametho [facility] azole 800 azole 800 xazole 800 [facility] mg-trimetho mg-trimetho mg-trimeth Urology prim 160 mg prim 160 mg oprim 160 tablet Take tablet Take mg tablet 1 tablet 1 tablet Take 1 every 12 every 12 tablet hours by hours by every 12 oral route oral route hours by for 3 days. for 3 days. oral route for 3 days. tamsulosin tamsulosin No tamsulosin [facility] 0.4 mg 0.4 mg 0.4 mg [facility] capsule capsule capsule Urolog y TAKE ONE TAKE ONE TAKE ONE CAPSULE BY CAPSULE BY CAPSULE BY MOUTH DAILY MOUTH DAILY MOUTH DAILY amlodipine amlodipine No amlodipine [facility] Urology Immunizations Ordered Filled Immunization Date Status Comments [facility] e Immunization Name Name influenza, influenza, 2021-05-25 Completed [facility] injectable, injectable, 00:00:00 Urology quadrivalent quadrivalent influenza, influenza, 2021-05-25 Completed [facility] injectable, injectable, 00:00:00 Urology quadrivalent quadrivalent influenza, influenza, 2021-05-25 Completed [facility] injectable, injectable, 00:00:00 Urology quadrivalent quadrivalent influenza, influenza, 2021-05-25 Completed [facility] injectable, injectable, 00:00:00 Urology quadrivalent quadrivalent influenza, influenza, 2021-05-25 Completed [facility] injectable, injectable, 00:00:00 Urology quadrivalent quadrivalent influenza, influenza, Unknown Completed [facility] injectable, injectable, Urology quadrivalent quadrivalent PFIZER COVID-19 Unknown Completed [facility] COVID-19 Unknown Completed [facility] P[facility] COVID-19 Unknown Completed [facility] PFIZER COVID-19 Unknown Completed [facility] Vital Signs Vital Name Observation Time Observation Value Comments Source Height 2023-03-09 00:00:00 68 [in_i] [facility] Body Weight 2023-03-09 00:00:00 188 [lb_av] [facility] BMI (Body Mass 2023-03-09 00:00:00 28.6 kg/m2 [facility] Height 2022-12-30 00:00:00 68 [in_i] [facility] Height 2022-12-01 00:00:00 68 [in_i] [facility] BP Diastolic 2022-05-17 00:00:00 66 mm[Hg] [facility] U[facility] Height 2022-05-17 00:00:00 68 [in_i] [facility] Urology BMI (Body Mass 2022-05-17 00:00:00 28.6 kg/m2 [place] n [facility] Index) Urology BP Systolic 2022-05-17 00:00:00 115 mm[Hg] [facility] Body Weight 2022-05-17 00:00:00 188 [facility]av[facility] 2023-06-14 20:59:00 76 /min [facility] Systolic blood 2023-06-14 19:37:54 120 mm[Hg] [facility] pressure Diastolic blood 2023-06-14 19:37:54 65 mm[Hg] [facility] pressure Body temperature 2023-06-14 19:37:54 36.61 Martine [facility] Oxygen saturation in 2023-06-14 19:37:54 99 /min [facility] Arterial blood by Pulse oximetry Respiratory rate 2023-06-14 18:59:00 17 /min [facility] Body height 2023-06-13 18:08:00 170.2 cm [facility] Body weight 2023-06-13 18:08:00 83.598 kg [facility] BMI 2023-06-13 18:08:00 28.87 kg/m2 [facility] Procedures Procedure Date / Time Performing Clinician Source Performed BASIC METABOLIC PANEL 2023-06-14 09:42:00 Adriana Rivas [facility] ESTIMATED GFR 2023-06-14 09:42:00 Adriana Rivas [facility] MAGNESIUM LEVEL 2023-06-14 09:42[facility] AN ELECTIVE 2023-06-13 19:51:00 Dann Talbert spital SUPRAGLOTTIC AIRWAY CYSTO, SALINE TURP 2023-06-13 19:41:00 Adriana Rivas [facility] (BIPOLAR) SURGICAL PATHOLOGY 2023-06-13 14:17:00 ElizabethAdriana taylor [facility] REQUEST Transurethral Resection 2023-06-13 00:00:00 Tracey Alanis of Prostate (Surg) Urology URINE CULTURE 2023-05-30 17:17:00 [facility] ECG PRE/POST OP 2023-05-30 16:53:55 María Strickland [facility] PARTIAL THROMBOPLASTIN 2023-05-30 16:44:00 María Strickland [facility] TIME (PTT) PROTHROMBIN TIME WITH INR 2023-05-30 16:44:00 [facility] CBC WITH PLATELET AND 2023-05-30 16:44:00 María Strickland [facility] DIFFERENTIAL COMPREHENSIVE METABOLIC 2023-05-30 16:44:00 Em Maríamadelaine Khoury [facility] PANEL HEMOGLOBIN A1C 2023-05-30 16:44:00 [facility] ESTIMATED GFR 2023-05-30 16:44:00 [facility] URINALYSIS SCREEN AND 2023-05-30 16:40:00 María Strickland [facility] MICROSCOPY, WITH REFLEX TO CULTURE [id number] 2023-02-25 00:00:00 CHAKR.05 [facility] [id number] 2023-02-25 00:00:00 CHAKR.05 [facility] [id number] 2023-02-25 00:00:00 CHAKR.05 [facility] XR CERVICAL SPINE 2 OR 3 2022-12-28 16:30:10 Femi Burrows [facility] VW XR LUMBAR SPINE 2 OR 3 VW 2022-12-28 16:30:10 Femi Burrows [facility] Procedure on Gallbladder [facility] Colonoscopy [facility] Plan of Care Planned Activity Planned Date Details Comments Source Future Scheduled 2023-06-15 Screening for [facility] Test 01:19:45 malignant neoplasm of colon (procedure) [code = 544452295] Future Scheduled 2023-06-15 Screening for [facility] Test 01:19:45 malignant neoplasm of colon (procedure) [code = 554404694] Future Scheduled 2023-06-15 Screening for [facility] Test 01:19:45 malignant neoplasm of colon (procedure) [code = 834054181] Future Scheduled 2023-06-15 [facility] 01:19:45 (procedure) [code = 120865775] Future Scheduled 2023-06-15 [facility]ening for [facility] Test 01:19:45 malignant neoplasm of colon (procedure) [code = 105726386] Future Scheduled 2023-06-15 Screening for [facility] Test 01:19:45 malignant neoplasm of colon (procedure) [code = 696951798] Future Scheduled 2023-06-15 SHINGLES VACCINES (1 [facility] Test 01:19:45 of 2) [code = SHINGLES VACCINES (1 of 2)] Future Scheduled 2023-06-15 65+ PNEUMOCOCCAL [facility] Test 01:19:45 VACCINE (1 - PCV) [code = 65+ PNEUMOCOCCAL VACCINE (1 - PCV)] Future Scheduled 2023-06-15 COVID-19 VACCINE (3 - [facility] Test 01:19:45 season) [code = COVID-19 VACCINE (3 - season)] Future Scheduled 2023-06-15 INFLUENZA VACCINE [facility] Test 01:19:45 (#1) [code = INFLUENZA VACCINE (#1)] Future Scheduled 2023-06-15 Screening for [facility] Test 01:19:45 malignant neoplasm of colon (procedure) [code = 367940334] Future Scheduled 2023-06-15 [facility]ening for [facility] Test 01:19:45 malignant neoplasm of colon (procedure) [code = 826607511] Future Scheduled 2023-06-15 [facility]ening for [facility] Test 01:19:45 malignant neoplasm of colon (procedure) [code = 607802289] Future Scheduled 2023-06-15 [facility] 01:19:45 (procedure) [code = 876005573] Future Scheduled 2023-06-15 Screening for [facility] Test 01:19:45 malignant neoplasm of colon (procedure) [code = 711234692] Future Scheduled 2023-06-15 Screening for [facility] Test 01:19:45 malignant neoplasm of colon (procedure) [code = 466228065] Future Scheduled 2023-06-15 SHINGLES VACCINES (1 Met [facility] Test 01:19:45 of 2) [code = SHINGLES VACCINES (1 of 2)] Future Scheduled 2023-06-15 65+ PNEUMOCOCCAL [facility] Test 01:19:45 VACCINE (1 - PCV) [code = 65+ PNEUMOCOCCAL VACCINE (1 - PCV)] Future Scheduled 2023-06-15 COVID-19 VACCINE (3 - [facility] Test 01:19:45 season) [code = COVID-19 VACCINE (3 - season)] Future Scheduled 2023-06-15 INFLUENZA VACCINE Method [facility] Test 01:19:45 (#1) [code = INFLUENZA VACCINE (#1)] Diagnostic Test 2023-03-09 urinalysis, dipstick [facility] Pending 00:00:00 [code = urinalysis, Urology dipstick] Diagnostic Test 2023-03-09 PSA, serum or plasma [facility] P[facility] 00:00:00 [code = PSA, serum or Urolog y plasma] Future Scheduled 2023-02-23 Screening for [facility] Test 14:16:18 malignant neoplasm of colon (procedure) [code = 473515684] Future Scheduled 2023-02-23 Screening for [facility] Test 14:16:18 malignant neoplasm of colon (procedure) [code = 711209142] Future Scheduled 2023-02-23 Screening for [facility] Test 14:16:18 malignant neoplasm of colon (procedure) [code = 029934375] Future Scheduled 2023-02-23 Hepatitis C screening [facility] Test 14:16:18 (procedure) [code = 911592089] Future Scheduled 2023-02-23 Screening for [facility] Test 14:16:18 malignant neoplasm of colon (procedure) [code = 676157647] Future Scheduled 2023-02-23 Screening for [facility] Test 14:16:18 malignant neoplasm of colon (procedure) [code = 589759981] Future Scheduled 2023-02-23 SHINGLES VACCINES (1 Met [facility] Test 14:16:18 of 2) [code = SHINGLES VACCINES (1 of 2)] Future Scheduled 2023-02-23 65+ PNEUMOCOCCAL [facility] Test 14:16:18 VACCINE (1 - PCV) [code = 65+ PNEUMOCOCCAL VACCINE (1 - PCV)] Future Scheduled 2023-02-23 COVID-19 VACCINE (3 - [facility] Test 14:16:18 Pfizer series) [code = COVID-19 VACCINE (3 - Pfizer series)] Future Scheduled 2023-02-23 [facility]ACCINE [facility] Test 14:16:18 [code = INFLUENZA VACCINE] Future Scheduled 2023-02-09 [facility] Test 14:09:01 malignant neoplasm of colon (procedure) [code = 042601211] Future Scheduled 2023-02-09 [facility] for [facility] Test 14:09:01 malignant neoplasm of colon (procedure) [code = 707621731] Future Scheduled 2023-02-09 [facility] for [facility] Test 14:09:01 malignant neoplasm of colon (procedure) [code = 261303894] Future Scheduled 2023-02-09 Hepatitis C screening [facility] Test 14:09:01 (procedure) [code = 314954069] Future Scheduled 2023-02-09 [facility] for [facility] Test 14:09:01 malignant neoplasm of colon (procedure) [code = 590199955] Future Scheduled 2023-02-09 [facility] for [facility] Test 14:09:01 malignant neoplasm of colon (procedure) [code = 832477290] Future Scheduled 2023-02-09 SHINGLES VACCINES (1 [facility] Test 14:09:01 of 2) [code = SHINGLES VACCINES (1 of 2)] Future Scheduled 2023-02-09 65+ [facility] 14:09:01 VACCINE (1 - PCV) [code = 65+ PNEUMOCOCCAL VACCINE (1 - PCV)] Future Scheduled 2023-02-09 COVID-19 VACCINE (3 - [facility] Test 14:09:01 Pfizer series) [code = COVID-19 VACCINE (3 - Pfizer series)] Future Scheduled 2023-02-09 INFLUENZA VACCINE [facility] Test 14:09:01 [code = INFLUENZA VACCINE] Future Scheduled 2023-02-09 [facility] Test 14:09:01 malignant neoplasm of colon (procedure) [code = 117402585] Future Scheduled 2023-02-09 [facility] Test 14:09:01 malignant neoplasm of colon (procedure) [code = 606475038] Future Scheduled 2023-02-09 [facility] Test 14:09:01 malignant neoplasm of colon (procedure) [code = 930634388] Future Scheduled 2023-02-09 Hepatitis C screening [facility] Test 14:09:01 (procedure) [code = 365945948] Future Scheduled 2023-02-09 Screening for [facility] Test 14:09:01 malignant neoplasm of colon (procedure) [code = 466176846] Future Scheduled 2023-02-09 Screening for [facility] Test 14:09:01 malignant neoplasm of colon (procedure) [code = 757348502] Future Scheduled 2023-02-09 SHINGLES VACCINES (1 Met [facility] Test 14:09:01 of 2) [code = SHINGLES VACCINES (1 of 2)] Future Scheduled 2023-02-09 65+ [facility] Test 14:09:01 VACCINE (1 - PCV) [code = 65+ PNEUMOCOCCAL VACCINE (1 - PCV)] Future Scheduled 2023-02-09 COVID-19 VACCINE (3 - [facility] Test 14:09:01 Pfizer series) [code = COVID-19 VACCINE (3 - Pfizer series)] Future Scheduled 2023-02-09 INFLUENZA VACCINE [facility] Test 14:09:01 [code = INFLUENZA VACCINE] Encounters Start End Encounter Admission Attending Care Care Encounter Source Date/Time Date/Time Type Type Clinicians Facility Department ID 2023-06-13 2023-06-14 1.2.840.1 [id number] Methodi 11:59:00 15:22:00 Encounter Adriana Montenegro 70604.1.[address] 3.430.2.7 Hospit a .3.455400 l .8 2023-06-13 2023-06-14 1.2.840.1 [id number] Methodi 11:59:00 15:22:00 Encounter Adriana Montenegro 15638.1.[address] 3.430.2.7 Hospit a .3.710464 l .8 2023-06-13 2023-06-13 Anesthesia Abbe Carrizales 1.2.840.1 [id number] Methodi 13:42:00 15:14:00 Event María Strickland 57541.1.[address] 3.430.2.7 Hospit a .3.096018 l .8 2023-06-13 2023-06-13 Anesthesia Abbe Carrizales 1.2.840.1 [id number] Methodi 13:42:00 15:14:00 María Stephenson 66527.1.[address] 3.430.2.7 Hospit a .3.125047 l .8 2023-06-13 2023-06-13 Surgery Elizabeth, 1.2.840.1 [id number] 2099 [id number] Methodi 13:30:00 14:50:00 Adriana Montenegro 35120.1.1 385 s t 3.430.2.7 Hospit a .3.575951 l .8 2023-06-13 2023-06-13 Surgery Elizabeth, 1.2.840.1 [id number] 2099 [id number] Methodi 13:30:00 14:50:00 Adriana Montenegro 37410.1.1 385 s t 3.430.2.7 Hospit a .3.418502 l .8 2023-06-13 2023-06-13 [facility] - [id number] [facility] 00:00:00 00:00:00 Mac Rivas MD: [address] [facility] [place] [address] [facility], [place] [address] , Ph. 2023-05-30 2023-05-30 Pre-Admiss Adriana Rivas.2.840.1 [id number] Methodi 10:20:00 11:20:00 María Orta 70592.1.[address] Testing 3.430.2.7 Hospit a .3.528088 l .8 2023-05-30 2023-05-30 Pre-Admiss Adriana Rivas 1.2.840.1 [id number] Methodi 10:20:00 11:20:00 María Orta 25832.1.[address] Testing 3.430.2.7 Hospit a .3.447139 l .8 2023-04-27 2023-04-27 Treatment Femi Burrows 1.2.840.1 104 [id number] Methodi 14:00:00 15:52:44 Jarvis Waddell 85807.1.[address] 3.430.2.7 Hospit a .3.721265 l .8 2023-04-27 2023-04-27 Treatment Femi Burrows 1.2.840.1 104 722242 [id number] Methodi 14:00:00 15:52:44 Jarvis Waddell 39129.1.[address] 3.430.2.7 Hospit a .3.214169 l .8 2023-04-20 2023-04-20 Treatment Femi Burrows 1.2.840.1 104 595215 [id number] Methodi 14:00:00 16:46:55 Jarvis Waddell 91333.1.[address] 3.430.2.7 Hospit a .3.114892 l .8 2023-04-20 2023-04-20 Treatment Femi Burrows 1.2.840.1 104 989183 [id number] Methodi 14:00:00 16:46:55 Jarvis Waddell 79745.1.[address] 3.430.2.7 Hospit a .3.777962 l .8 2023-04-20 2023-04-20 Plan of 1.2.840.1 [id number] Methodi 00:00:00 00:00:[address] Documentat 3.430.2.7 Hos travis ion .3.231720 l .8 2023-04-20 2023-04-20 Plan of 1.2.840.1 [id number] [id number] Methodi 00:00:00 00:00:[address] Documentat 3.430.2.7 Hos travis ion .3.864581 l .8 2023-04-13 2023-04-13 Treatment Femi Burrows 1.2.840.1 104 475288 [id number] Methodi 14:00:00 15:00:00 Jarvis Waddell 23757.1.[address] 3.430.2.7 Hospit a .3.290633 l .8 2023-04-13 2023-04-13 Treatment Femi Burrows 1.2.840.1 104 246570 [id number] Methodi 14:00:00 15:00:00 Jarvis Waddell 52068.1.[address] 3.430.2.7 Hospit a .3.558057 l .8 2023-04-06 2023-04-06 Treatment Femi Burrows 1.2.840.1 104 980996 [id number] Methodi 14:00:00 15:00:00 Jarvis Waddell 25843.1.[address] 3.430.2.7 Hospit a .3.198550 l .8 2023-04-06 2023-04-06 Treatment Femi Burrows 1.2.840.1 104 386414 [id number] Methodi 14:00:00 15:00:00 Jarvis Waddell 85929.1.[address] 3.430.2.7 Hospit a .3.120692 l .8 2023-03-30 2023-03-30 Treatment Femi Burrows 1.2.840.1 104 114556 [id number] Methodi 14:00:00 15:00:00 Jarvis Waddell 81047.1.[address] 3.430.2.7 Hospit a .3.473888 l .8 2023-03-30 2023-03-30 Treatment Femi Burrows 1.2.840.1 104 747620 [id number] Methodi 14:00:00 15:00:00 Jarvis Waddell 36264.1.[address] 3.430.2.7 Hospit a .3.526499 l .8 2023-03-21 2023-03-21 Outpatient Goldfarb_R [facility] [address] 00:00:00 00:00:00 [facility]29 [facility] 2023-03-16 2023-03-16 Treatment Femi Burrows 1.2.840.1 104 105472 [id number] Methodi 14:00:00 15:12:12 Lokeshyusef Jarvis 95849.1.[address] 3.430.2.7 Hospit a .3.202818 l .8 2023-03-16 2023-03-16 Treatment Femi Burrows 1.2.840.1 104 649111 [id number] Methodi 14:00:00 15:12:12 Jarvis Waddell 60007.1.[address] 3.430.2.7 Hospit a .3.774210 l .8 2023-03-11 2023-03-11 Pre-Admiss Elizabeth, 1.2.840.1 [id number] 2 [id number] Methodi 13:00:00 14:00:00 ion Adriana A. 01518.1.1 034 s t Testing 3.430.2.7 Hospit a .3.724071 l .8 2023-03-11 2023-03-11 Pre-Admiss Elizabeth, 1.2.840.1 [id number] 2 [id number] Methodi 13:00:00 14:00:00 ion Adriana A. 03766.1.1 034 s t Testing 3.430.2.7 Hospit a .3.928236 l .8 2023-03-11 2023-03-11 Outpatient Goldfarb_R [facility] [address] 00:00:00 00:00:00 86564 [facility] 2023-03-10 2023-03-10 Treatment Femi Burrows 1.2.840.1 104 491201 [id number] Methodi 14:00:00 14:50:48 Bairon Jarvis 71123.1.[address] 3.430.2.7 Hospit a .3.257618 l .8 2023-03-10 2023-03-10 Treatment Femi Burrows 1.2.840.1 104 948754 [id number] Methodi 14:00:00 14:50:48 Jarvis Waddell 42364.1.[address] 3.430.2.7 Hospit a .3.318512 l .8 2023-03-10 2023-03-10 Plan of 1.2.840.1 [id number] 8250 Methodi 00:00:00 00:00:[address] Documentat 3.430.2.7 Hos travis ion .3.807028 l .8 2023-03-10 2023-03-10 Plan of 1.2.840.1 [id number] [id number] 4304 Methodi 00:00:00 00:00:[address] Documentat 3.430.2.7 Hos travis ion .3.427030 l .8 2023-03-09 2023-03-09 Outpatient Goldfarb_R [facility] [address] 00:00:00 00:00:00 15745 [facility] 2023-03-09 2023-03-09 Outpatient Goldfarb_R [facility] [address] 00:00:00 00:00:00 54[facility] 2023-03-09 2023-03-09 [facility] [place] - [id number] [facility] 00:00:00 00:00:00 Mac Rivas MD: [address] [facility] [address] [facility], [place] [address] , Ph. 2023-02-25 2023-02-27 Inpatient [facility] ICU BP00 [id number] [facility] 06:22:00 14:15:00 w, 07 [facility] 2023-02-23 2023-02-23 Treatment Femi Burrows 1.2.840.1 104 065438 [id number] Methodi 14:00:00 15:00:00 Jarvis Waddell 46396.1.[address] 3.430.2.7 Hospit a .3.621733 l .8 2023-02-23 2023-02-23 Treatment Femi Burrows.2.840.1 104 390140 [id number] Methodi 14:00:00 15:00:00 MauriliochalinoJarvis hernández 05317.1.[address] 3.430.2.7 Hospit a .3.116784 l .8 2023-02-16 2023-02-16 Treatment Femi Burrows 1.2.840.1 104 403820 [id number] Methodi 14:00:00 15:00:00 LokeshyusefJarvis 00510.1.[address] 3.430.2.7 Hospit a .3.333301 l .8 2023-02-16 2023-02-16 Treatment Femi Burrows.2.840.1 104 373225 [id number] Methodi 14:00:00 15:00:00 Jarvis Waddell 90339.1.[address] 3.430.2.7 Hospit a .3.590560 l .8 2023-02-15 2023-02-15 Outpatient [facility] DAYS BP0 [id number] [facility] 12:57:00 12:57:00 w, 73 [facility] 2023-02-09 2023-02-09 Treatment Femi Burrows.2.840.1 104 684768 [id number] Methodi 14:00:00 15:00:00 Jarvis Waddell 67344.1.[address] 3.430.2.7 Hospit a .3.088427 l .8 2023-02-09 2023-02-09 Treatment Femi Burrows.2.840.1 104 063529 [id number] Methodi 14:00:00 15:00:00 Lokeshyusef Jarvis 58906.1.[address] 3.430.2.7 Hospit a .3.091007 l .8 2023-01-31 2023-01-31 Evaluation Femi Burrows.2.840.1 10 7491646 [id number] Methodi 13:00:00 14:04:42 Jarvis Waddell 86747.1.[address] 3.430.2.7 Hospit a .3.958970 l .8 2023-01-31 2023-01-31 Evaluation Femi Burrows.2.840.1 10 8163527 [id number] Methodi 13:00:00 14:04:42 Jarvis Waddell 92104.1.[address] 3.430.2.7 Hospit a .3.529279 l .8 2023-01-31 2023-01-31 Plan of 1.2.840.1 [id number] Methodi 00:00:00 00:00:[address] Documentat 3.430.2.7 Hos travis ion .3.788961 l .8 2023-01-31 2023-01-31 Plan of 1.2.840.1 258134785 [id number] 9734 Methodi 00:00:00 00:00:[address] Documentat 3.430.2.7 Hos travis ion .3.095063 l .8 2023-01-08 2023-01-08 Outpatient Goldfarb_R [facility] [address] 00:00:00 00:00:00 17895 [facility] 2023-01-04 2023-01-04 Orders Steven, 1.2.840.1 [id number] 2565 Methodi 00:00:00 00:00:00 Only [place] 53937.1.[address] 3.430.2.7 Hospit a .3.226893 l .8 2023-01-04 2023-01-04 Orders Steven 1.2.840.1 [id number] 0713 Methodi 00:00:00 00:00:00 Only [place] 72082.1.[address] 3.430.2.7 Hospit a .3.530883 l .8 2023-01-03 2023-01-03 Telephone Janie Burrows2.840.1 [id number] 2100 [id number] Methodi 00:00:00 00:00:00 Femi Tejada 87221.1.1 850 s t 3.430.2.7 Hospit a .3.723306 l .8 2023-01-03 2023-01-03 Telephone Johnnie Burrows.2.840.1 [id number] 2100 [id number] Methodi 00:00:00 00:00:00 Femi Tejada 90247.1.1 850 s t 3.430.2.7 Hospit a .3.234762 l .8 2022-12-31 2022-12-31 Outpatient Goldfarb_R [facility] [address] 00:00:00 00:00:00 52395 [facility] 2022-12-30 2022-12-30 Outpatient Goldfarb_R [facility] [address] 00:00:00 00:00:00 26545 [facility] 2022-12-30 2022-12-30 Outpatient Goldfarb_R [facility] [address] 00:00:00 00:00:00 69582 [facility] 2022-12-30 2022-12-30 [facility] [place] [facility] [id number] [facility] 00:[facility] 00:00:00 Mac Rivas MD: [address] [facility] [address] [facility], [place] [address] , Ph. 2022-12-28 2022-12-28 Office Johnnie Burrows.2.840.1 [id number] 4127 Methodi 10:30:00 11:56:19 Visit Femi Coon50.1.1 394 s t 3.430.2.7 Hospit a .3.421604 l .8 2022-12-28 2022-12-28 Office Janie Burrows2.840.1 [id number] 1531 Methodi 10:30:00 11:56:19 Visit Femi Coon50.1.1 394 s t 3.430.2.7 Hospit a .3.267514 l .8 2022-12-28 2022-12-28 Travel 1.2.840.1 1.2.071.598 3180 574704 Methodi 00:00:00 00:00:[address] 3.430.2.7 0.2.7.3.698 Ho spita .3.242101 084.8 l .8 2022-12-28 2022-12-28 Orders [facility], 1.2.840.1 [id number] 9877 Methodi 00:00:00 00:00:00 Only [place] 96238.1.[address] 3.430.2.7 Hospit a .3.425024 l .8 2022-12-28 2022-12-28 Orders [facility], 1.2.840.1 [id number] 8738 Methodi 00:00:00 00:00:00 Only [place] [address]258.1.[address] 3.430.2.7 Hospit a .3.785613 l .8 2022-12-28 2022-12-28 [facility] [id number] [address] 00:00:00 00:00:[address] 2022-12-28 2022-12-28 Travel 1.2.840.1 1.2.328.289 7148 779471 Methodi 00:00:00 00:00:[address] 3.430.2.7 0.2.7.3.698 Ho spita .3.126488 084.8 l .8 2022-12-28 2022-12-28 Orders [facility], 1.2.840.1 [id number] 3063 Methodi 00:00:00 00:00:00 Only [place] [address]208.1.[address] 3.430.2.7 Hospit a .3.597696 l .8 2022-12-28 2022-12-28 Orders [facility], 1.2.840.1 [id number] 8683 Methodi 00:00:00 00:00:00 Only [place] [address]257.1.[address] 3.430.2.7 Hospit a .3.025593 l .8 2022-12-14 2022-12-14 Travel 1.2.840.1 1.2.850.723 3823 099855 Methodi 00:00:00 00:00:[address] 3.430.2.7 0.2.7.3.698 Ho spita .3.296501 084.8 l .8 2022-12-14 2022-12-14 Travel 1.2.840.1 1.2.110.168 2587 949542 Methodi 00:00:00 00:00:[address] 3.430.2.7 0.2.7.3.698 Ho spita .3.100338 084.8 l .8 2022-12-01 2022-12-01 Outpatient Goldfarb_R [facility] [address] 00:00:00 00:00:00 22796 [facility] 2022-12-01 2022-12-01 Outpatient Goldfarb_R [facility] [address] 00:00:00 00:00:00 93734 [facility] 2022-12-01 2022-12-01 [facility] [place] [facility] [id number] [facility] 00:00:00 00:00:00 Mac Rivas MD: [address] [facility] - [address] [facility], [place] [address] , Ph. 2022-09-18 2022-09-19 Inpatient [facility] MEDI.01 [id number] [facility] 05:18:00 12:02:[address] 2022-07-28 2022-07-28 Outpatient Goldfarb_R [facility] [address] 00:00:00 00:00:00 37806 [facility] 2022-07-22 2022-07-22 Outpatient Goldfarb_R [facility] [address] 00:00:00 00:00:00 00387 [facility] 2022-07-07 2022-07-07 Outpatient Goldfarb_R [facility] [address] 00:00:00 00:00:00 50543 [facility] 2022-06-10 2022-06-10 Outpatient Goldfarb_R [facility] [address] 00:00:00 00:00:00 00382 [facility] 2022-06-02 2022-06-02 Outpatient Goldfarb_R [facility] [address] 00:00:00 00:00:00 08521 [facility] 2022-05-25 2022-05-25 Outpatient Goldfarb_R [facility] [address] 00:00:00 00:00:00 94781 [facility] 2022-05-21 2022-05-21 Outpatient Goldfarb_R [facility] [address] 00:00:00 00:00:00 35497 [facility] 2022-05-21 2022-05-21 Adriana [facility] [place] - [id number] [facility] 00:00:00 00:00:00 Mac Rivas MD: 42[address] [facility] [address], - U [facility] [address] , Ph. 2022-05-18 2022-05-18 Outpatient Goldfarb_R [facility] [address] 00:00:00 00:00:00 50331 [facility] 2022-05-17 2022-05-17 Outpatient Goldfarb_R [facility] [address] 00:00:00 00:00:00 18233 [facility] 2022-05-17 2022-05-17 Adriana [facility] [place] [facility] [id number] [facility] 00:[facility] 00:00:00 Mac Rivas MD: 6560 [facility] [address], [place] [address] , Ph. 2022-04-26 2022-04-26 Outpatient Goldfarb_R [facility] [address] 00:00:00 00:00:00 [facility] 2022-03-17 2022-03-17 Outpatient Goldfarb_R [facility] [address] 00:00:00 00:00:00 73207 [facility] 2021-09-14 2021-09-15 Inpatient SHELDON PatelWOswaldo TELE [id number] [facility] 07:17:00 10:16:00 Ramon Justyn [facility] Results Test Description Test Time Test Comments Results Result Comments Source Surgical pathology request 2023-06-15 21:25:04 Test Item Value Reference Range Interpretation Comme nts Case number (test code = 0045094) [id number] Surgical pathology report (test code = See link below for PDF Lab R eport 2255) Result status (test code = 5664471) This is Final Report for [id number] [facility] [id number] 21:25:04 Test Item Value Reference Range Interpretation Comments Case number (test code = [id number]) Surgical pathology See link below for report (test code = PDF Lab Report 2255) Result status (test code This is Final Report = [id number]) for [id number] [id number] 19:51:00Dann Talbert 06/13/2023 1:57 PMAirway Date/Time: 06/13/2023 1:51 PM Location: OR Performed by: anesthesia residentAnesthesiologist: Abbe Carrizalest/GROUT WORKER/AA: Ned Talbertorized by: Abbe Carrizales [employer]visor [employer] Attestation: I was present and participated in the placement of the airway performed with the resident.Attesting provider: Abbe Carrizales Urgency: ElectiveDifficult Airway: No Preoxygenated with 100% O2: Yes C-spine Precautions Maintained Throughout: Yes Mask Ventilation: Not attemptedFinal Airway Type: Supraglottic airwayFinal LMA: I-GelLMA Size: 4 Atraumatic, pre-procedural dentition preserved [id number] 19:51:00Dann Talbert 06/13/2023 1:57 PMAirway Date/Time: 06/13/2023 1:51 PM Location: OR Performed by: anesthesia residentAnesthesiologist: Abbe Carrizalest/GROUT WORKER/AA: Rosa Talbertzed by: Abbe Carrizales Supervisor [employer] Attestation: I was present and participated in the placement of the airway performed with the resident.Attesting provider: Abbe Carrizales Urgency: ElectiveDifficult Airway: No Preoxygenated with 100% O2: Yes C-spine Precautions Maintained Throughout: Yes Mask Ventilation: Not attemptedFinal Airway Type: Supraglottic airwayFinal LMA: I-GelLMA Size: 4 Atraumatic, pre-procedural dentition preserved Urine [id number] 21:12:00 Test Item Value Reference Range Interpretation Comments Urine culture Mixed stevie Specimen isolate (test <=10-3 col/cc InformationSp ecimen code = 82271-4) [id number] 21:12:00 Test Item Value Reference Range Interpretation Comments Urine culture Mixed stevie Specimen isolate (test <=10-3 col/cc InformationSp ecimen code = 70515-2) Source: [facility] Site: [facility] Pre/Post [id number] 16:57:53 Test Item Value Reference Range Interpretation Comments Ventricular rate (test 64 code = 253) Atrial rate (test code = 64 255) CO interval (test code = 138 266) QRSD [...] Nguyen MD ([id number]) on 05/30/2023 10:57:43 AM [facility] Pre/Post [id number] 16:57:53 Test Item Value Reference Range Interpretation Comments Ventricular rate (test 64 code = 253) Atrial rate (test code = 64 255) CO interval (test code = 138 266) QRSD [...] available-Electronica lly Signed By Hao Nguyen MD ([id number]) on 05/30/2023 10:57:43 AM [facility] - [id number] 09:31:00 Test Item Value Reference Range Interpretation [...] nitrite (test code = negative neg nitrite) [id number] 12:14:00 Test Item Value Reference Range Interpretation Comments VITAMIN B12 (test code = VITB12) 315 pg/ml 180-914 N FOLIC [id number] 12:14:00 Test Item Value Reference Range Interpretation Comments FOLIC ACID (test code = FOL) 3.88 ng/ml 6.59-20.0 L VITAMIN [id number] 12:14:00 Test Item Value Reference Range Interpretation Comments VITAMIN B12 (test code = VITB12) 315 pg/ml 180-914 FOLIC [id number] 12:14:00 Test Item Value Reference Range Interpretation Comments FOLIC ACID (test code = FOL) 3.88 ng/ml 6.59-20.0 L FE W/TOTAL IRON BINDING [id number] 17:23:00 Test Item Value Reference Range Interpretation Comments IRON (test code = IRON) 92 mcg/dL 50-175 N TOTAL IRON BINDING CAPACITY (test 286 mcg/dL 250-425 N code = TIBC) IRON SATURATION (test code = 32 % 20-50 N FESAT) [id number] 17:23:00 Test Item Value Reference Range Interpretation Comments FERRITIN (test code = MARIA ELENA) 684.5 ng/mL 22.0-322.0 H RETIC [id number] 17:03:00 Test Item Value Reference Range Interpretation Comments RETIC CT AUTOMATED (test code 2.00 % 0.50-1.50 H = RETICA) RETIC CT ABSOLUTE (test code = 54.80 x10 3/uL 20.00-90.00 N RET#) BASIC METABOLIC [id number] 04:05:00 Test Item Value Reference Range Interpretation [...] code 8.8 mg/dL 8.7-10.4 N = CA) [id number] 04:05:00 Test Item Value Reference Range Interpretation Comments PHOSPHOROUS (test code = PHOS) 2.7 mg/dL 2.4-5.1 N [id number] 04:05:00 Test Item Value Reference Range Interpretation Comments MAGNESIUM (test code = MAG) 1.8 mg/dL 1.6-2.6 N CBC W/AUTO [id number] 03:58:00 Test Item Value Reference Range Interpretation [...] 0.02 x10 3/uL 0.0-0.20 N BASIC METABOLIC [id number] 00:53:00 Test Item Value Reference Range Interpretation [...] code 8.2 mg/dL 8.7-10.4 L = CA) [id number] 00:53:00 Test Item Value Reference Range Interpretation Comments PHOSPHOROUS (test code = PHOS) 3.1 mg/dL 2.4-5.1 N [id number] 00:53:00 Test Item Value Reference Range Interpretation Comments MAGNESIUM (test code = MAG) 1.9 mg/dL 1.6-2.6 N RECOLLECTBASIC METABOLIC [id number] 21:13:00 Test Item Value Reference Range Interpretation [...] Test not performed 8.7-10.4 = CA) mg/dL [id number] 21:13:00 Test Item Value Reference Range Interpretation Comments PHOSPHOROUS (test code = Test not performed 2.4-5.1 PHOS) mg/dL [id number] 21:13:00 Test Item Value Reference Range Interpretation Comments MAGNESIUM (test code = Test not performed 1.6-2.6 MAG) mg/dL PROTHROMBIN [id number] 20:57:00 Test Item Value Reference Range Interpretation [...] 2.5-3.5recurren t systemic emboli sm. THROMBOPLASTIN TIME [id number] 20:57:00 Test Item Value Reference Range Interpretation Comments THROMBOPLASTIN TIME 30.0 SECONDS 23.8-34.8 N INTERPRE TATIVE PARTIAL (test code = DATA:Th erapeutic PTT) range: Unfractionated heparin:55 - 80 seconds Argatroban:1.5 to 3 times the basel ine PTT CBC W/AUTO [id number] 20:49:00 Test Item Value Reference Range Interpretation [...] 3/uL 0.0-0.20 N - XR FLUOROSCOPY 0-60 [id number] 15:06:00 [facility] : 1955 Sex: MPatient Name: MATTHEW REYNOLDS Unit No: [id number] EXAMS: CPT CODE: [id number] XR FLUOROSCOPY0-60 MIN 72316 EXAM: - XR FLUOROSCOPY 0-60 MIN DATE: [...] carotid artery stent IMPRESSION: Intraoperative fluoroscopy was providedfor the procedural service. Please see the procedure note for full details. Electronically Signedby Alex Bowens MD on 02/25/2023 at 1506 Reported and signed by: Alex Bowens MD CC: Evan Fernandez MD; Augustin Bajwa MD Technologist: Lynne Mayo (R),(CT),() Fluoro Time: DAP (Gy m2): Air Kerma (mGy): Trscr Dt/Tm: 02/25/2023 (1506) by:[email or web address] Printed Date/Time: 02/25/2023 (5276) Name: MATTHEW HERRERA [facility] Phys: Jw Valentin [address] : 1955 Age: 68 Sex: [place] [address] Loc: P.0223 1 Exam Date: 02/25/2023 Status: ADM IN PH: FAX: PAGE 1 Signed ReportCOMPREHENSIVE METABOLIC [id number] 12:13:00 Test Item Value Reference Range Interpretation [...] 46-116 N PHOSPHATASE (test code = ALKP) [id number] 12:13:00 Test Item Value Reference Range Interpretation Comments PHOSPHOROUS (test code = PHOS) 3.5 mg/dL 2.4-5.1 N [id number] 12:13:00 Test Item Value Reference Range Interpretation Comments MAGNESIUM (test code = MAG) 1.4 mg/dL 1.6-2.6 L LACTIC [id number] 11:40:00 Test Item Value Reference Range Interpretation Comments LACTIC ACID (test code = LACT) 0.40 mmol/L 0.5-2.0 L PROTHROMBIN [id number] 11:36:00 Test Item Value Reference Range Interpretation [...] 2.5-3.5recurren t systemic emboli sm. THROMBOPLASTIN TIME [id number] 11:36:00 Test Item Value Reference Range Interpretation Comments THROMBOPLASTIN TIME 30.9 SECONDS 23.8-34.8 N INTERPRE TATIVE PARTIAL (test code = DATA: erapeutic PTT) range: Unfractionated heparin:55 - 80 seconds Argatroban:1.5 to 3 times the basel ine PTT CBC W/AUTO [id number] 11:27:00 Test Item Value Reference Range Interpretation [...] 0.02 x10 3/uL 0.0-0.20 N COAGULATION TIME [id number] 09:55:00 Test Item Value Reference Range Interpretation Comments COAGULATION TIME ACTIVATED (test 353 SECONDS 74-137 H code = ACT) Urinalysis macro (dipstick) panel - [id number] 09:20:00 Test Item Value Reference Range Interpretation [...] nitrite (test code = negative neg nitrite) [facility] UrologyPSA, serum or [id number] 00:00:00 Test Item Value Reference Range Interpretation Comments PSA testosterone (test code = PSA testosterone) PSA_1 (test code = PSA_1) 7.13 [facility] UrologyGLYCOSYLATED HEMOGLOBIN [id number] 04:52:00 Test Item Value Reference Range Interpretation Comments GLYCOSYLATED HEMOGLOBIN (HA1C) 4.8 % A1C 0.0-5.7 N (test code = GLYHGB) ESTIMATED AVERAGE GLUCOSE (test 91 MG/DLest code = EAG) BASIC METABOLIC [id number] 04:49:00 Test Item Value Reference Range Interpretation [...] MG/DL 8.5-10.1 N = CA) CBC W/AUTO [id number] 04:40:00 Test Item Value Reference Range Interpretation [...] NO DIFF/SCN CRITERIA = MDIFF) COAGULATION TIME [id number] 07:30:00 Test Item Value Reference Range Interpretation Comments COAGULATION TIME ACTIVATED (test 271 SECistat 74-125 H code = ACT) LIPID PROFILE (CORONARY RISK)2022-09-18 06:44:00 Test Item Value Reference Range Interpretation Comments TRIGLYCERIDES (test 66 MG/DL 0-150 N code = TRIG) CHOLESTEROL (test 195 MG/DL 133-200 N code = CHOL) CHOLESTEROL/HDL 1.97 RATIO See_Comment RISK ASSOCIA FRANCIS WITH RATIO (test code = CHOL/HDL RATIOS: RISK CHOLHDL) MALE FEMALE1/2 AVERAGE 3.43 3.27AVERA GE 4.97 4.442X AVERAGE 9.55 7.053X AVERAGE 23.39 [...] (test code = LDL) NEAR OPTIM AL/ABOVE [id number] - 15 9 AZGYFWXKUB958 - 189 HIGH>OR= 190 VE RY HIGHNOTE THAT G UIDELINES ARE PROVIDED BY NATIONAL CHOLESTEROLEDUC ATION PROGRAM ADULT T REATMENT PANEL III LDL/HDL (test code 0.91 Ratio See_Comment L [Automat ed message] The = LDL/HDL) system which Fisgo nerated this result tra nsmitted reference range : 1.48-3.22 Avg. The reference range was not used to interpr et this result as normal/abnormal . [id number] 06:44:00 Test Item Value Reference Range Interpretation Comments MAGNESIUM (test code = MAG) 2.0 MG/DL 1.8-2.4 N PROTHROMBIN [id number] 06:44:00 Test Item Value Reference Range Interpretation [...] disease, Acute Myocardial Infa rction (to prevent sys temic embolism), Valv ular heart disease, Atrial Fibrillation, Bileaflet mecha nical valve in aortic position.2. Mec hanical prosthetic valv es (high risk), 2. 5 - 3.5 Presence of Lup us Anticoagulant o r Antiphospholipi d Antibodies, Pre vention of systemic emb olism - Acute Myocardia l Infarction (to prevent recurrent infar ct). THROMBOPLASTIN TIME [id number] 06:44:00 Test Item Value Reference Range Interpretation Comments THROMBOPLASTIN TIME PARTIAL 31.3 SECONDS 26-35 N (test code = PTT) COMPREHENSIVE METABOLIC [id number] 06:44:00 Test Item Value Reference Range Interpretation [...] TOTAL (test code = ALKP) CBC W/AUTO [id number] 06:43:00 Test Item Value Reference Range Interpretation [...] DIFF/SCN CRITERIA = MDIFF) COVID 19 INHOUSE [id number] 06:39:00 Test Item Value Reference Range Interpretation Comments COVID 19 INHOUSE AG NEGATIVE Negative Per manu facturer, (test code = negative result s should CTMLU48YRCK) be treated aspr esumptive and, if inconsi [...] with COVID-19. Urinalysis macro (dipstick) panel - [id number] 11:20:00 Test Item Value Reference Range Interpretation [...] nitrite (test code = negative neg nitrite) [facility] UrologyBacteria identified in Urine by [id number] 00:00:00 Urine CultureMid[facility] – Central UrologyBASIC METABOLIC [id number] 05:21:00 Test Item Value Reference Range Interpretation [...] 9.2 MG/DL 8.4-10.2 N CA) CBC W/AUTO [id number] 05:02:00 Test Item Value Reference Range Interpretation [...] code = 0.00 K/mm3 0.0-0.1 N NRBC#) [id number] 13:01:00 Test Item Value Reference Range Interpretation Comments ACT-ISTAT (test code = ACTI) 190 SEC 74-137 H [id number] 12:42:00 Test Item Value Reference Range Interpretation Comments ACT-ISTAT (test code = ACTI) 303 SEC 74-137 H [id number] 12:18:00 Test Item Value Reference Range Interpretation Comments ACT-ISTAT (test code = ACTI) 297 SEC 74-137 H [id number] 11:47:00 Test Item Value Reference Range Interpretation Comments ACT-ISTAT (test code = ACTI) 339 SEC 74-137 H [id number] 08:17:00 Test Item Value Reference Range Interpretation Comments MAGNESIUM (test code = MAG) 1.9 MG/DL 1.6-2.3 N BASIC METABOLIC [id number] 08:17:00 Test Item Value Reference Range Interpretation [...] = 9.6 MG/DL 8.4-10.2 N CA) PROTHROMBIN [id number] 08:10:00 Test Item Value Reference Range Interpretation [...] myocar dial infarction. 2.0 - 3.0 3. Supervisor Rework al prosthesis hear t valves, recurre nt systemic emboli sm. 3.0 - 4.5 PTT [id number] 08:10:00 Test Item Value Reference Range Interpretation Comments PTT ACTIVATED (test code = APTT) 32.8 SECONDS 25.1-36.5 N CBC W/AUTO [id number] 08:00:00 Test Item Value Reference Range Interpretation [...] 0.0-0.1 N NRBC#) COVID 19 Asymptomatic IH [id number] 06:46:00 Test Item Value Reference Range Interpretation Comments COVID 19 NEGATIVE Negative "Negative resul ts from Asymptomatic IH AG patients with symptom (test code = onset beyondfiv e days, COVNONPUIAG) should be treat ed as presumptive, andconfirmation with a molecular assay [...] Notes Date/Time Note Provider Source 2023-02-27 14:22:00 [id number]:22:00 [facility] ([facility]) Med Order Sheet REPORT #: [id number] REPORT STATUS: Signed DATE: 02/27/23 TIME: 1421 PATIENT: MATTHEW REYNOLDS UNIT #: [id number] #: [id number] ROOM #: P.0223 BED: 1 : 54 AGE: 68 SEX: M ATTEND: Augustin Bajwa MD ADM AUTHOR: Jasvir Giang MD ATTENTION * EDITS and/or ADDENDA must be made in Patient Keeper for this note. Edit s and ammendments created in [facility] are not visible in Patient Keeper or the legal medica l record ([facility]). * Discharge Medication Reconciliation Hosp: Cyanocobal/Fa/Pyridox Tab (NF) (Folbic Tab (NF)) Dose: 1 TAB PO BID, Disp: 180 tablet, Refills: 0 at 1422ATTENTION * EDITS and/or ADDENDA must be made in Patient Keeper for this note. Edits and ammendments created in [facility] are no t visible in Patient Keeper or the legal medica l record ([facility]). * [facility] #: [id number] OF REPORTCLClinical mevu7027-12-07X00:22:00P.ZP-[id number] v ailable for patient rvspABGAWNRJPFFTVF0495-22-19S60:23:02 2023-02-27 14:17:00 [id number]:17:00 [facility] ([facility] Med Order Sheet REPORT #: [id number] REPORT STATUS: Signed DATE: 02/27/23 TIME: 141 PATIENT: MATTHEW REYNOLDS UNIT #: [id number] #: [id number] ROOM #: P.0223 BED: 1 : 54 AGE: 68 SEX: M ATTEND: Augustin Bajwa MD ADM AUTHOR: Jasvir Giang MD ATTENTION * EDITS and/or ADDENDA must be made in Patient Keeper for this note. Edit s and ammendments created in [employer] are not visible in Patient Keeper or the legal medica l record ([facility]). * Discharge Medication Reconciliation Hosp: Tamsulosin Cap (Flomax Cap) Dose: 0.8 MG PO DAILY, Disp: 60 capsule, Refills : 0 at 1417ATTENTION * EDITS and/or ADDENDA must be made in Patient Keeper for this note. Edits and ammendments created in [employer] are no t visible in Patient Keeper or the legal medica l record ([facility]). * RPT #: [id number] OF REPORTCLClinical [id number]:17:00P.UD-[id number] v ailable for patient efwbZCQGFKFSURJYDK8130-03-01W76:17:41 2023-02-27 14:17:00 [id number]:17:00 [facility] ([facility]) Internal Med. D/C Summary REPORT #: [id number] REPORT STATUS: Signed DATE: 02/27/23 TIME: 1417 PATIENT: MATTHEW REYNOLDS UNIT #: [id number] #: [id number] ROOM #: P.0223 BED: 1 : 4 AGE: 68 SEX: M ATTEND: Augustin Bajwa MD ADM AUTHOR: Jasvir Giang MD ATTENTION * EDITS and/or ADDENDA must be made in Patient Keeper for this note. Edit s and ammendments created in [employer] are not visible in Patient Keeper or the legal medica l record ([facility]). * -- PROBLEMS/PROCEDURES - - ADMISSION DATE:02/25/23 [...] [facility]. Pt transferred to [facility] for TCAR with Dr. Bajwa. Patient [...] Feb 27, 2023 1:36pm PK DISCHARGE ORDERS:Discharge w/Instructions:[facility] - PK DISCHARGE ORDERS Details:Order number: [id number]: PKD - PK DISCHARGE ORDERSOrder status: Transmitted Details:Discharge order: YesDischarge to: Home/Self CareDiet: Resume Home Diet/FeedsActivity: As Tolerated Light Duty No Lifting gt;20lbs Walk 3 times a dayPCP follow up timeframe: In 1-2 weeksNotify PCP of Signs/Symptoms: Increased redness Increased tenderness/pain Moderate/large bleeding Numbness Temp. 101 or greaterWound/dressing care: OK to shower tomorrowAdditional Discharge Routines: Collect On Delivery Clerk Follow-Up Ordered by: Lynne Velez Feb 27, [...] patient was instructed to present to the [facility] y Department or call 911 should [...] and affect, intact judgment and insight. -- KARI A -- LABS FOLIC ACID (02/26/23 16:40)FOLIC ACID 3.88 L FE W/TOTAL IRON BINDING CAP (02/26/23 16:40)IRON 92TOTAL IRON BINDING CAPACITY 286IRO N SATURATION 32 VITB12 (02/26/23 16:40)VITAMIN B12 315 FOLIC ACID (02/26/23 16:40)FOLIC ACID 3.88 L FERRITIN (02/26/23 16:40)FERRITIN 684.5 H VITB12 (02/26/23 16:40)VITAMIN B12 315 RETIC COUNT (02/26/23 16:40)RETIC CT AUTOMATED 2.[address] ABSOLUTE 54.80 -- ATTESTATION -- TIME SPENT O N PATIENT CARE: - Direct 35 minutes - [...] this note. Edits and ammendments created in [employer] are no t visible in Patient Keeper or the legal medica l record ([facility]). * RPT #: [id number] OF REPORTDSDischarge xxdzpzv2588-82-13W09:17:00P.JQ-[id number] A VAvailable for patient zvcvOPPZLNECHZFERY6749-05-97K81:24:02 2023-02-27 13:37:00 [id number]:37:00 [facility] ([facility]) Med Order Sheet REPORT #: [id number] REPORT STATUS: Signed DATE: 02/27/23 TIME: 133 PATIENT: MATTHEW REYNOLDS UNIT #: [id number] #: [id number] ROOM #: P.0223 BED: 1 : 54 AGE: 68 SEX: M ATTEND: Augustin Bajwa MD ADM AUTHOR: Lynne Velez ATTENTION * EDITS and/or ADDENDA must be made in Patient Keeper for this note. Edit s and ammendments created in [employer] are not visible in Patient Keeper or the legal medica l record ([facility]). * Discharge Medication Reconciliation DISCHARGE MEDICATION LISTamLODIPine [...] PRN sbp greaterthan 140Dc'd: HYDROcodone/APAP 7.5/325 Tab ([place] 7.5/325 Tab) 1TAB PO Q6HPRN pain scale 7-10 (use 1st)Dc'd: HYDROmorphone Inj (Dilaudid Inj) 0.25MG IVQ6H CO N breakthrough painDc'd: Labetalol Inj (Trandate Inj) 10MG IV Q6H PRNsee special instructionsDc'd : Polyethylene Glycol Powder (Miralax Powder) 1PKTPO DAILYDc'd: traMADol Tab (Ultram Tab) 50MG PO Q6H PRN pain scale4-6 13:3 6 at 1337ATTENTION * EDITS and/or ADDENDA must be made in Patient Keeper for this note. Edits and ammendments created in [facility] are no t visible in Patient Keeper or the legal medica l record ([facility]). * [facility] #: [id number] OF REPORTCLClinical ijlb7720-73-15A52:37:00P.ZD-[id number] reid ailable for patient eaeaIMXCMHWLOTKADQ6575-86-55G66:37:41 2023-02-27 10:33:00 [id number]:33:00 [facility] ([facility]) Vascular Surg . Progress Note REPORT #: [id number] REPORT STATUS: Signed DATE: 02/27/23 TIME: 1033 PATIENT: MATTHEW REYNOLDS UNIT #: [id number] #: [id number] ROOM #: [facility]3 BED: 1 : 54 AGE: 68 SEX: M ATTEND: Augustin Bajwa MD ADM AUTHOR: Estela Padilla MD R4 ATTENTION * EDITS and/or ADDENDA must be made in Patient Keeper for this note. Edit s and ammendments created in [employer] are not visible in Patient Keeper or the legal medica l record ([facility]). * -- CO-SIGNATURE -- COMMENTS:I saw and examined the patient. I agree with the history and exam by Dr. Hightower the note attached. Okay to discharge home on aspirin , Plavix, and statin..He will follow-up with me in 2 weeks in the office. Signed in PatientKeeper b AUGUSTIN Garcia MD on 02/27/23 at 11:50 -- ASSESSMENT [...] - 75)Respiratory rate: 19 (12 - 31)BP: 117/6 4 (107/56 - 313/313)Blood pressure source: Monitor I/Os [...] extremities.SKIN: Intact without significant lesions, or rashes.PSYCHIATRIC: Aler t and oriented to time, person, place. Normal [...] Estela Padilla MD R4 on 3 at 10:34 Cosigned by AUGUSTIN BAJWA MD on 02/27/23 at 11:50 at 1150 at 1150ATTENTION * EDITS and/or ADDENDA must be made in Patient Keeper for this note. Edits and ammendments created in [employer] are no t visible in Patient Keeper or the legal medica l record ([facility]). * RPT #: [id number] OF REPORTPRProgress [id number]:33:00P.WQ-[id number] v ailable for patient bcalGKBWQAEWRVMCKS2146-14-97L59:51:00 2023-02-26 19:28:00 [id number]:28:00 [facility] ([facility]) Internal Med. Consultation REPORT #: [id number] REPORT STATUS: Signed DATE: 02/26/23 TIME: 1927 PATIENT: MATTHEW REYNOLDS UNIT #: [id number] # : [id number] ROOM #: P.0223 BED: 1 : 54 AGE: 68 SEX: M ATTEND: Augustin Bajwa MD ADM AUTHOR: Jasvir Giang MD ATTENTION * EDITS and/or ADDENDA must be made in Patient Keeper for this note. Edit s and ammendments created in [employer] are not visible in Patient Keeper or the legal medica l record ([facility]). * -- ASSESSMENT AND PLAN - - [...] -- OBJECTIVE -- VITALS (02/25 19:28 - 08/05 19:28):Temperature F: 97.6 (97.4 - 98.8)Temperature source: [...] RATE >=60 max estimateCREATININE 0.70CALCIUM 8.8 PHOS (02/25/23 22:37)PHOSPHOROUS 3.1 MAG (02/25/23 22:37)MAGNESIUM 1.9 BASIC [...] 0.6NEUTROPHIL # 3.34LYMPHOCYTE # 0.91 LMONOCYTE # 0.62EOSINOPHI L # 0.13BASOPHIL # 0.03 PTT (02/25/23 20:43)THROMBOPLASTIN [...] Signed in PatientKeeper by Jasvir Giang MD 02/27/23 at 14:17 at 1417ATTENTION * EDITS and/or ADDENDA must be made in Patient Keeper for this note. Edits and ammendments created in [employer] are no t visible in Patient Keeper or the legal medica l record ([facility]). * RPT #: [id number] OF REPORTSURvtwyskhzlkz0779-27-22P74:28:00P.PK-N O [id number] for patient ayzvCJVPCGMJNPHFYA9310-04-14J39:18:02 2023-02-26 16:15:00 [id number]:15:00 [facility] ([facility]) Intensive Car e Progress Note REPORT #: [id number] REPORT STATUS: Signed DATE: 02/26/23 TIME: 1615 PATIENT: MATTHEW REYNOLDS UNIT #: [id number] #: [id number] ROOM #: P.0223 BED: 1 : 54 AGE: 68 SEX: M ATTEND: Augustin Bajwa MD ADM AUTHOR: Fady Parsons MD ATTENTION * EDITS and/or ADDENDA must be made in Patient Keeper for this note. Edit s and ammendments created in [employer] are not visible in Patient Keeper or the legal medical record ([facility]). * -- ASSESSMENT AND PLAN - - HOSPITAL COURSE TO DATE:Mr. Reynodls is a 68 yr ol d male with PMHx of CAD s/p PCI/Stents to RCA and OM(09/18), Paroxysmal AFib, HTN, HLD, BPH, GERD and Critical Rt. ICA stenosis whowas transferred to he CVICU from the [...] other members of the care team ADDITIONAL DETAIL:02300 Signed in PatientKeeper by FADY PARSONS MD on 02/26/23 at 16:40 at 1640ATTENTION * EDITS and/or ADDENDA must be made in Patient Keeper for this note. Edits and ammendments created in [facility] are no t visible in Patient Keeper or the legal medica l record ([facility]). * RPT #: [id number] OF REPORTPRProgress rpyz6153-62-92J08:15:00P.MO-[id number] v ailable for patient salkOHPTEFUSFBYVYE9785-51-16F01:40:40 2023-02-26 09:47:00 [id number]:47:00 [facility] ([facility]) Vascular Surg . Progress Note REPORT #: [id number] REPORT STATUS: Signed DATE: 02/26/23 TIME: 946 PATIENT: MATTHEW REYNOLDS UNIT #: [id number] #: [id number] ROOM #: [facility]3 BED: 1 : 54 AGE: 68 SEX: M ATTEND: Augustin Bajwa MD ADM AUTHOR: Estela Padilla MD R4 ATTENTION * EDITS and/or ADDENDA must be made in Patient Keeper for this note. Edit s and ammendments created in [facility] are not visible in Patient Keeper or the legal medica l record ([facility]). * -- CO-SIGNATURE -- COMMENTS:I saw and examined the patient. I agree with the history and exam by Dr. Padillaand the note attached. Signed in PatientKeeper by AUGUSTIN BAJWA MD on 02/27/23 at 11:49 -- ASSESSMENT AND PLAN -- GENERAL ASSESSMENT:68y o M w/ R carotid stenosis s/p R TCAR 02/26 -OK to downgrade-continue ASA, statin, plavix-on flowma [...] 0.03 PTT (02/25/23 20:43)THROMBOPLASTIN TIME PARTIAL 30.0 COMPREHENSIVE METABOLIC PANEL (02/25/23 11:07)SODIUM 141POTASSIUM 3.8CHLORIDE 110 HCARBON DIOXIDE 24GLUCOSE 104BLOOD UREA NITROGEN 12GLOMERULAR FILTRATION RATE >=60 max estimateCREATININE 0.70TOTAL PROTEIN 5.6 LALBUMIN 3.8CALCIUM 8.0 LBILIRUBIN TOTAL 0.9SGOT/AST 38 HSGPT/ALT 51 HALKALINE PHOSPHATAS E 71.0 PHOS (02/25/23 11:07)PHOSPHOROUS 3.5 PTT (02/25/23 11:07)THROMBOPLASTIN TIME PARTIAL 30.9 MAG (02/25/23 11:07)MAGNESIUM 1.4 L CBC W/AUTO DIFF (02/25/23 11:07)WHITE BLOOD CELL 4.1L LRED BLOOD CELL 2.68 LHEMOGLOBIN 9.5L LHEMATOCRIT 27.7L LMEAN CELL VOLUME 103.4 HMEAN CELL HGB 35. 4 HMEAN CELL HGB CONCENTRATION 34.3RED CELL DISTRIBUTION WIDTH 12.7 LPLATELET COUNT 189MEAN PLATELET VOLUME 8.9NEUTROPHIL % 63.4LYMPHOCYTE % 24.5 MONOCYTE % 6.9EOSINOPHIL % 3.7BASOPHIL % 0.5NEUTROPHIL # 2.59LYMPHOCYTE # 1.00MONOCYTE # 0.28EOSINOPHIL # 0.15BASOPHIL # 0.02 LACTIC ACI D (02/25/23 11:07)LACTIC ACID 0.40 L PROTHROMBIN TIME (02/25/23 11:07)PROTHROMBIN TIME PATIENT 12.7INTERNATIONAL NORMAL RATIO 1.08 ACT ( 3 09:49)COAGULATION TIME ACTIVATED 353 H Signed in PatientKeeper by Estela Padilla MD R4 on 3 at 09:50 Cosigned by AUGUSTIN BAJWA MD on 02/27/23 at 11:49 at 1149 at 1149ATTENTION * EDITS and/or ADDENDA must be made in Patient Keeper for this note. Edits and ammendments created in [employer] are no t visible in Patient Keeper or the legal medica l record ([facility]). * [facility] #: [id number] OF REPORTPRProgress kkee1278-48-33L38:47:00P.WJ-[id number] v ailable for patient pckyKRYERHFNTPYNRR3166-48-27A78:51:00 2023-02-25 14:00:00 [id number]:00:00 [facility] ([facility]) Intensive Car e Consultation REPORT #: [id number] REPORT STATUS: Signed DATE: 02/25/23 TIME: 1400 PATIENT: MATTHEW REYNOLDS UNIT #: [id number] #: [id number] ROOM #: P.0223 BED: 1 : 54 AGE: 68 SEX: M ATTEND: Augustin Bajwa MD ADM AUTHOR: Theodore Nickerson MD ATTENTION * EDITS and/or ADDENDA must be made in Patient Keeper for this note. Edit s and ammendments created in [facility] are not visible in Patient Keeper or the legal medica l record ([facility]). * -- ASSESSMENT AND PLAN - - HOSPITAL COURSE TO DATE:68 yr old [facility]ot[facility]. Pt transferred to [facility] for TCAR with Dr. Bajwa. 02/25/23 [...] reviewed with the clinical pharmacist Theodore Nickerson, [facility] -- HISTORY -- CHIEF COMPLAINT:s/p [...] had cardiac cath and cerebral angiogram at [facility] confirmingcritical right internal carotid artery stenosis. PAST [...] respiratory effort.HEART: Regular rate and rhythm, normal S1 , S2, no murmurs, no rubs, no gallops, [...] 4.1L LRED BLOOD CELL 2.68 LHEMOGLOBIN 9.5L L HEMATOCRIT 27.7L LMEAN CELL VOLUME 103.4 HMEAN CELL HGB 35.4 HMEA N CELL HGB CONCENTRATION 34.3RED CELL DISTRIBUTION WIDTH [...] this note. Edits and ammendments created in [employer] are no t visible in Patient Keeper or the legal medica l record ([facility]). * RPT #: [id number] OF [id number]:00:00P.PK-N O [id number] for patient [id number]:06:54 2023-02-25 11:06:00 [id number]:06:00 [facility] Brief Operative Report REPORT #: [id number] REPORT STATUS: Signed DATE: 02/25/23 TIME: 1106 PATIENT : MATTHEW REYNOLDS UNIT #: [id number] #: [id number] ROOM #: P.0223 BED: 1 : 54 AGE: 68 SEX: M ATTEND: Augustin Bajwa MD ADM AUTHOR: Bjorn Baez MD R4 ATTENTION * EDITS and/or ADDENDA must be made in Patient Keeper for this note. Edit s and ammendments created in [employer] are not visible in Patient Keeper or the legal medica l record ([facility]). * -- BRIEF OP NOTE -- PRE-OPERATIVE DIAGNOSIS:right carotid stenosis POST-OPERATIVE DIAGNOSIS:right carotid stenosis NAME OF PROCEDURE:Right transcarotid artery revascularization SURGEON:Amanda Bajwa MD FLY WINDER(S):Dr. Baez FINDINGS:successful carotid stent placement ESTIMATED BLOOD LOSS (ML'S):50 SPECIMEN(S) REMOVED AND/OR ALTERED:non e Signed in PatientKeeper by Bjorn Baez MD R4 on 02/25/23 at 11:08 Cosigned by AUGUSTIN BAJWA MD on 02/25/23 at 11:38 at 1138 at 1138ATTENTION * EDITS and/or ADDENDA must be made in Patient Keeper for this note. Edits and ammendments created in [employer] are no t visible in Patient Keeper or the legal medica l record ([facility]). * [facility] #: [id number] OF REPORTOPOperative cqcksw4167-17-91J54:06:00P.HO-[id number] V Available for patient gldfXCSGMHHSOXTFUB8700-83-90R96:38:50 2023-02-25 11:03:00 [id number]:03:00 [facility] ([facility]) Operative Report REPORT #: [id number] REPORT STATUS: Signed DATE: 02/25/23 TIME: 1103 PATIENT: MATTHEW REYNOLDS UNIT #: [id number] #: [id number] ROOM #: P.0223 BED: 1 : 54 AGE: 68 SEX: M ATTEND: Augustin Bajwa MD ADM AUTHOR: Augustin Bajwa MD ATTENTION * EDITS and/or ADDENDA must be made in Patient Keeper for this note. Edit s and ammendments created in [employer] are not visible in Patient Keeper or the legal medical record ([facility]). * -- OPERATION -- SURGERY START DATE/TIME:2023-02-25 [...] had cardiac cath and cerebral angiogram at [facility] confirming critical right internal carotid artery stenosis. Idiscussed risks and benefits of medical management versus open endarterectomyversus hybrid transcarotid artery revascularization. He understands the riskof stroke, cranial nerve injury, and heart attack and wishes to proceed withcarotid repair. Given his coronary artery disease and recent PCI and stenting,the patient and I preferred right TCAR. NAME OF PROCEDURE:1. Right transcarotid artery revascularization [address] 8 x 40mm stent and flow reversal neuro protection system.2. Ultrasound-guided left common femoral vein puncture. TIME OUT COMPLETED:Yes SURGEON:Augustin Bajwa MD FLY WINDER(S):Bjorn Baez MD ANESTHESIA: Monitored anesthesia care and [...] t the puncture site and an 8 Burmese sheath was placed. A transverseincision was made [...] x 40 mm stent was loaded into theea over a 0.014 inch wire. A TCAR [...] this note. Edits and ammendments created in [employer] are no t visible in Patient Keeper or the legal medica l record ([facility]). * [facility] #: [id number] OF REPORTOPOperative btjxfm7307-09-27L23:03:00P.QF-[id number] V Available for patient lqpmJPZNWNAYQMJHQX5810-99-52I05:26:30 2023-02-25 11:02:00 [id number]:02:00 [facility] ([facility]) Med Order Sheet REPORT #: [id number] REPORT STATUS: Signed DATE: 02/25/23 TIME: 1102 PATIENT: MATTHEW REYNOLDS UNIT #: [id number] #: [id number] ROOM #: P.0223 BED: 1 : 54 AGE: 68 SEX: M ATTEND: Augustin Bajwa MD ADM AUTHOR: Bjorn Baez MD R4 ATTENTION * EDITS and/or ADDENDA must be made in Patient Keeper for this note. Edit s and ammendments created in [employer] are not visible in Patient Keeper or the legal medica l record ([facility]). * Admission Medication Reconciliation -- CONTINUED / [...] MG PO BEDTIMEHosp: Atorvastatin Tab (Lipitor Tab) 80 MG PO BEDTIME Home: Clopidogrel Tab (Plavix Tab) 75 MG PO BEDTIMEHosp: Existing: Clopidogrel Tab (Plavix Tab) 75 MG PO Now and then DAILY for a TOTAL of 31 days Home: Losartan Tab [...] this note. Edits and ammendments created in [facility] are no t visible in Patient Keeper or the legal medica l record ([facility]). * [facility] #: [id number] OF REPORTCLClinical ygwk7580-09-22S29:02:00P.MM-[id number] v ailable for patient kyecUKHKDAVXCFNWXJ6951-18-32O23:03:19 2023-02-15 06:34:00 [id number]:34:[id number] [facility] [address] [place], [place] [address]AURMDKH NAME: MATTHEW REYNOLDS ADMIT DATE: 02/15/23ACCOUNT NO: [id number] ROOM NO: AGE: 68 REPORT TYPE: eELECTROCARDIOGRAM SEX: M ADMITTING PHYSICIAN: ATTENDING PHYSICIAN: Augustin Bajwa MD Order:[id number] Reason : PROTOCOL Test Date/Time Stamp:TueFeb 15 2023 06:34:33Blood Pressure : / mmHGVent. Rate : 065 BPM Atrial Rate : 065 BPM P-R Int : 138 ms QRS Dur : 090 ms QT Int : 420 ms P-R-T Axes : 047 063 071 degrees QTc Int : 436 ms Normal sinus rhythmNonspecific ST abnormalityAbnormal ECGNo previous ECGs availableConfirmed by MEENAKSHI ARROYO ([id number]) on 02/23/2023 12:37:31 PM Referred By: Evan Fernandez Confirmed by:MEENAKSHI ARROYO at 1237 PATIENT NAME: MATTHEW REYNOLDS .[id number] AVAvailable for patient flgzCIDGNSMQRWKWUQ3824-65-08E82:37:47 2022-09-19 11:30:00 [id number]:30:00 [facility] ([facility])Hospitalist Tommy ramirez SummaryREPORT#:[id number] REPORT STATUS: SignedDATE:09/19/22 TIME:1130 PATIENT: MATTHEW REYNOLDS UNIT #: [id number]#: [id number] [facility] AGE : 67 SEX: M ATTEND: Maurice Rider MDA AUTHOR: Mana Cardona MD * ALL edits [...] ablation Continue aspirin daily Follow-up with his first beater DVT prophylaxis Lovenox CODE STATUS Full code [...] ablation Continue aspirin daily Follow-up with his first beater Seen and examinedDischarge home stableDischarge time 35-minutePt. [...] Home/Self CareAdditional Discharge Routines: PCP Follow-Up , Collect On Delivery Clerk Follow-UpDiet: Resume Home Diet/FeedsActivity: As ToleratedPrescriptions: o n chartDischarge management: greater than 30 mins Follow-up AppointmentsPCP follow-up: PCP: Evan Fernandez MD PCP follow up timeframe: In 3 daysConsulting provider 1: Provider 1: Remberto Vega MD Cardiology Specialty: CardiologyInterventional Consult follow up timeframe: In 1-2 weeks at 1132 RPT #: [id number] OF REPORT DSDischarge gugxdxu0661-20-30Y44:30:00L.MKVB65705060-2391AFO v ailable for patient lpxxZEVEUVKQMBOLBB7650-44-02T35:33:14 2022-09-19 04:13:00 [id number]:13:[id number] [place] [address] PATIENT NAME: MATTHEW REYNOLDS ADMIT DATE: 09/18/22ACCOUNT NO: [id number] [facility] AGE: 67 REPORT TYPE: eELECTROCARDIOGRAM SEX: M ADMITTING PHYSICIAN: Maurice Rider MD ATTENDING PHYSICIAN: Maurice Rider MD Order:[id number] Reason : CAD Test Date/Time Stamp:Teri Sep 19 2022 04:13:37Blood Pressure : / [...] Referred By: Maurice Rider Confirmed by:REMBERTO VEGA Electronically Raquel d by Remberto Vega MD on 09/19/22 at 0757 PATIENT NAME: MATTHEW REYNOLDS .[id number] AVAvailable for patient nnisPQWBDOTUKLIVAL4737-79-77Q47:58:18 2022-09-19 04:12:00 [id number]:12:[id number] [place] [address] PATIENT NAME: MATTHEW REYNOLDS ADMIT DATE: 09/18/22ACCOUNT NO: [id number] [facility] NO: [facility] AGE: 67 REPORT TYPE: eELECTROCARDIOGRAM SEX: M ADMITTING PHYSICIAN: Maurice Rider MD ATTENDING PHYSICIAN: Maurice Rider MD Order:[id number] Reason : CAD/PCI Test Date/Time Stamp:TueSep 19 2022 04:12:55Blood Pressure : / mmHGVent. [...] VEGA at 0757 PATIENT NAME: MATTHEW REYNOLDS .[id number] AVAvailable for patient xbtuDZGGESECTMCFLH3711-19-43Z71:57:48 2022-09-18 10:30:00 [id number]:30:00 [facility] History PhysicalREPORT#:[id number] REPORT STATUS: SignedDATE:09/18/22 TIME:1030 PATIENT: MATTHEW REYNOLDS UNIT #: [id number]#: [id number] [address]: [address] AGE : 67 SEX: M ATTEND: Maurice Rider [facility] AUTHOR: Mana Cardona MD * ALL edits [...] OM1.After the procedure patient is met in [facility] area, denies any complaints currently. Past medical [...] . OBJECTIVEVS/I O:Vital Signs Date Temp Pulse Resp B/P B/P Mean Pulse Ox FiO2 09/18 [...] Stated/Reported Measurement Method Patient Weight and BMI Weigh t (kg): 85.000 BMI: 28.5 General appearance: alert , awakeHead/Eyes: atraumatic, clear cornea, normal eyelids/periorb., normocephalic, PERRLNeck: full range of motion, non-tenderCardiovascular: tamanna l capillary refill, normal heart soundsRespiratory : clear to auscultation, no distressAbdomen: non-tender, normal bowel sounds, soft, no distentionExtremities: moves all, normal capillary refill, normal range of motion, no edemaNeuro/BATCH HEAT TREAT OPERATOR: alert, oriented X 3Skin: dry, intactLymphatics: neck [...] ablation Continue aspirin daily Follow-up with his first beater DVT prophylaxis Lovenox CODE STATUS Full code Resuscitation discussion: Discussed with: patientCode status: full code at 1337 [facility] #: [id number] OF REPORT HPHistory and physical jckrjrrovjv5422-57-99W68:30:00L.LPDD72972626-345 4 AVAvailable for patient jsqwBNXFNUIESFHKXW2439-94-49A72:37:56 2022-09-18 07:59:00 [id number]:59:[id number] [address] PATIENT NAME: MATTHEW REYNOLDS ADMIT DATE: 09/18/22ACCOUNT NO: [id number] ROOM NO: L.S204 AGE: 67 REPORT TYPE: [...] 1.5. Closing device. SURGEON: Remberto Vega MD. FLY WINDER: ESTIMATED BLOOD LOSS: Minimal. COMPLICATIONS: None. CONTRAST: [...] femoral artery area for local anesthesia. A 6-Burmese sheath was placed in the right common [...] The lesion was primary stented with an [place] 3 x 15 , 16 atmospheres that resulted in 0% residual. Then, I proceeded with intervention on the obtus e marginal. The guide used was an XB 54187, then the stent was a 2.75 x 12 [place]. The wir e was Luge, that resulted [...] MD Date Dictated: 09/18/2022 07:59:21Date Transcribed: 09/18/2022 10:13:16SFD/Nura #: [id number] ID: [id number] by Remberto Vega MD On 09/18/2022 01:18:21 PM at 0118 PATIENT NAME: MATTHEW REYNOLDS gopquc0364-28-94R69:13:00L.RZV13065064-1134SQGpd i lable for patient xtsxTLLTDPPCZCZGRK0994-43-10G49:18:45 2022-09-18 06:18:00 [id number]:18:[id number] [place] [address]994 PATIENT NAME: MATTHEW REYNOLDS ADMIT DATE: 09/18/22ACCOUNT NO: [id number] [facility] 67 REPORT TYPE: eELECTROCARDIOGRAM SEX: M ADMITTING PHYSICIAN: Maurice Rider MD ATTENDING PHYSICIAN: Maurice Rider MD Order:[id number] Reason : CAD/PCI Test Date/Time Stamp:TueSep 18 2022 06:18:11Blood Pressure : / mmHGVent. Rate : 063 BPM Atrial Rate : 063 BPM P-R Int : 140 ms QRS Dur : 092 ms QT Int : 438 ms P-R-T Axes : 020 052 064 degrees QTc Int : 448 ms Normal sinu s rhythmNormal ECGWhen compared with ECG of 18-SEP-2022 06:16,No significant change was foundConfirmed by REMBERTO VEGA ([id number]) on 09/18/2022 11:29:43 AM Referred By: Remberto Vega Confirmed by:REMBERTO VEGA at 1129 PATIENT NAME: MATTHEW REYNOLDS .[id number] AVAvailable for patient cxvxOCKBKVILKEGWDD7224-68-29Z07:31:31 2022-09-18 06:16:00 [id number]:16:[id number] [place] [id number] PATIENT NAME: MATTHEW REYNOLDS ADMIT DATE: 09/18/22ACCOUNT NO: [id number] ROOM NO: AGE: 67 REPORT TYPE: eELECTROCARDIOGRAM SEX: M ADMITTING PHYSICIAN: ATTENDING PHYSICIAN: Remberto Vega MD Order:[id number] Reason : CAD Test Date/Time Stamp:TueSep 18 2022 06:16:37Blood Pressure : / mmHGVent. [...] AM Referred By: Remberto Vega Confirmed by:REMBERTO VEAG at 0639 PATIENT NAME: MATTHEW REYNOLDS .[id number] AVAvailable for patient hksvXMNBVDRWONJCRY5527-91-85K99:39:25 2022-09-17 07:43:00 [id number]:43:[id number] [place] [address] PATIENT NAME: MATTHEW REYNOLDS ADMIT DATE: ACCOUNT NO: [id number] ROOM NO: AGE: 67 REPORT TYPE: HISTORY AND PHYSICAL SEX: M ADMITTING PHYSICIAN: ATTENDING PHYSICIAN: Remberto Vega MD Cardiology PATIENT NAME: MATTHEW REYNOLDS ADMIT DATE:09/18/2022DMISSION DATE: 09/18/2022 09:00:00 METAL PATTERN MAKER: Remberto Vega M.D. REASON FOR ADMISSION: Cardiac [...] 80 mg daily, amlodipine 10 mg daily, itwwrqj50 m g b.i.d., losartan 100 mg daily, [...] MD Date Dictated: 09/17/2022 07:43:50Date Transcribed: 09/17/2022 08:39:00SFD/SUDJob #: [id number] ID: [id number] and Edited by Remberto Vega MD On 09/17/22 5:19:45 PM at 0525 PATIENT NAME: MATTHEW REYNOLDS and physical nbqelqadqsv2054-64-39B74:39:00L.[id number] A VAvailable for patient yiudQMOTKQIAHFJAAO8016-20-12C82:26:42 2021-09-15 08:36:00 [id number]:36:[id number] [address] PATIENT NAME: MATTHEW REYNOLDS ADMIT DATE: 09/14/21ACCOUNT NO: [id number] QUENTIN Strong NO: Z.349 AGE: 66 REPORT TYPE: ELECTROCARDIOGRAM SEX: M ADMITTING PHYSICIAN:Ramon Garvey MD ATTENDING PHYSICIAN:Ramon Garvey MD Order:[id number] Reason : PAFIB Test Date/Time Stamp:TueSep 15 [...] VEGA at 1623 PATIENT NAME: MATTHEW REYNOLDS .[id number] AVAvailable for patient xavwVBRUXQLBEHIKIJ6704-34-33X08:23:40 2021-09-15 06:48:00 [id number]:48:00 [facility] ([facility])Cardiology Progress NoteREPORT#:[id number] REPORT STATUS: SignedDATE:09/15/21 TIME: 0648 PATIENT: MATTHEW REYNOLDS UNIT #: [id number]#: [id number] ROOM/BED: [facility]-ADOB: [birth year] AGE: 66 SEX: M ATTEND: Ramon Garvey MDA AUTHOR: Ramon Garvey MD * ALL edits or amendments must be made on the electronic/computer document * SubjectivePatient reports:No: chest pain, palpitations, shortness of breath. Objective GeneralVS/I O:24 hour I O ending at 0700: 09/15 0700 09/14 1900 Intake Total 1550.00 Output Total 1600 Balance -50.00 Intake, IV 750.00 Intake, Oral 800 Output, Urine 1600 Patient 91.6 kg Weight Weight Bed scale Measurement Method Vital Signs: Date Time Temp Pulse Resp B/P B/P Pulse O2 O2 Flow FiO2 Mean Ox Delivery Rate 09/15 0453 98.2 17 09/15 0300 74 1 7 148/72 103 97 09/15 0200 78 16 142/68 95 95 02 2 0100 72 17 143/68 97 98 09/15 0000 73 13 142/69 96 95 09/14 2345 98.8 09/14 2300 77 16 152/76 10 9 97 09/14 2200 79 16 160/77 110 97 09/14 2101 95 48 169/85 120 95 09/14 2018 98.2 09/14 2000 83 2 5 144/82 108 97 09/14 [...] LE assessment: no edemaMusculoskeletal: full range of motionNeuro/BATCH HEAT TREAT OPERATOR: alert, oriented X 3, CN II-XII intactSkin: dry, intactWound/incision: Location:Bilateral groin Site condition: dressin g clean dryPsychiatry: normal affect, normal judgment/insight, normal [...] - 36.5 SECONDS) 32.8 PT Patient/Control Mix (9. 5 - 12.7 11.0SECONDS) Activated Coag Time (74 [...] Count (129 - 368 K/MM3) 186 223 MPV (7.4 - 10.4 fl) 9.2 8.7 Neut % (Auto) (43 - 75 %) 80.6 H 51.7 Lymph % (Auto) (14 - 44 %) 7.8 L 29.5 Converse % (Auto) (4 - 13 %) 10.9 14.7 H Eos % (Auto) (0 - 6 %) 0.0 2.3 Baso % (Auto) (0 - 2 %) 0.1 1.0 Neut # (Auto) (2.0 - 7.6 K/mm3) 6.50 2.6 8 Lymph # (Auto) (1.0 - 3.8 K/mm3) 0.63 L 1.53 Converse # (Auto) (0.1 - 0.8 K/mm3) 0.88 H 0.76 Eos # (Auto) (0.0 - 0.2 K/mm3) 0.00 0.12 Baso # (Auto) (0.0 - 0.2 K/mm3) 0.01 0.05 Immature Gran % (0.0 - 2.0 %) 0.6 0.8 Nucleated RBC % (0 - 1.0 %) 0.0 0.0 Nucleated RBCs # (Man) (0.0 - 0.1 K/mm3) 0.0 0 0.00 Laboratory Tests 09/14 0700 Chemistry Magnesium (1.6 - 2.3 MG/DL) 1.9 Laboratory Tests 09/14 0700 Coagulation APTT (25.1 - 36.5 SECONDS) 32.8 Diagnosis, Assessment Plan Free Text DxA P NotesFree Text DxA P Notes:IMP: PAFIB s/p PVI PLAN: d/c home f/u one week. at 1636 RPT #:[id number] OF REPORTPRProgress dfti9213-31-17M81:48:00Z.AOIR48302934-8321LANsqf l able for patient ywqeVLBJABPYUVVEIL2915-95-13X21:36:25 2021-09-14 14:32:00 [id number]:32:[id number] [place] [address] PATIENT NAME: MATTHEW REYNOLDS ADMIT DATE: 09/14/21ACCOUNT NO: [id number] QUENTIN Strong NO: Z.DC5 AGE: 66 REPORT TYPE: eTRANSESOPHAGEAL ECHO SEX: M ADMITTING PHYSICIAN:Ramon Garvey MD ATTENDIN G PHYSICIAN:Ramon Garvey MD *[facility]*[address] [place], [place] [address]Phone Transesophageal Echocardiogram Patient: Matthew ReynoldsStudy Date : 09/14/2021 BP: 154 / 87 [id number] : 1955 Age: 66 Height: / Gender: M Weight: /BMI/BSA: / *Ordering Physician: * Ramon Garvey MD *Interpreting Physician: * Ramon Garvey MD*First Aid Attendant: * Ariadna Marcelino CS, RVT - Indications: EPS. PVI. - Study [...] obtained usingviscous lidocaine. A transesophageal probe (SN: [id number]) was inserted bythe attending first beater tonny hoover. Complete 2D, completespectral Doppler, and color Doppler. Location: Catheterizationlaboratory. Patient status: Outpatient. Patient room number: 3. Studystatus: Scheduled. Study completion: The patient tolerated theprocedure well. There were no complications. - Findings Left ventricle: The cavity size is normal. Hypertrophy is noted. PATIENT NAME: MATTHEW REYNOLDS [phone] [address] PATIENT NAME: MATTHEW REYNOLDS ADMIT DATE: 09/14/21ACCOUNT NO: [id number] ROOM NO: ZDC5 AGE: 66 REPORT TYPE: eTRANSESOPHAGEAL ECHO SEX: [...] 14:32 at 1432 PATIENT NAME: MATTHEW REYNOLDS mgokbyv0738-17-47Y11:32:00Z.DHJ25114877-5659XMHw a ilable for patient cvkwYKDWSXSBUVCUAD0617-22-77J39:32:52 2021-09-14 13:57:00 [id number]:57:[id number] [facility] [place] [address] PATIENT NAME: MATTHEW REYNOLDS ADMIT DATE: 09/14/21ACCOUNT NO: [id number] QUENTIN Strong NO: Z.DC5 AGE: 66 REPORT TYPE: CARDIAC CATHETERIZATION REPORT SEX: M ADMITTING PHYSICIAN:Ramon Garvey MD ATTENDING PHYSICIAN:Ramon Garvey MD PROCEDUR E DATE: 09/14/2021 PROCEDURES:1. Comprehensive electrophysiology study with atrial fibrillationablation/pulmonary vein isolation.2. Three-dimensional interatrial mapping.3. Intracardiac echocardiography. PREOPERATIVE DIAGNOSIS: Paroxysmal atrial fibrillation. POSTOPERATIVE DIAGNOSIS: Paroxysmal atrial fibrillation. BOOSTER STATION OPERATOR: Ramon Garvey MD ANESTHESIA: General endotracheal anesthesia. [...] technique with micropuncture kitand ultrasound guidance. A 6-Burmese sheath was placed in the left femoral veinand secured in place with an 0 Ethibond suture. It was connected to a pressuretransducer for arterial pressure monitoring. A 6-Burmese, locking 8-Burmese, and9-Burmese sheaths were placed in the left femoral vein. All sheaths wereaspirated and flushed and connected to heparinized saline infusion. An 8-Frenchsheath was placed in the right femoral vein. The sheath was removed and twoPerclose devices were placed in a preclose fashion. The 8-Burmese sheath wasthen flushed, reassembled, and placed back in the right femora l vein. Thesheaths were connected to heparinized saline infusion. An intracardiacechocardiography catheter was advanced via the 9-Burmese sheath an d placed in theright atrium. Intracardiac echocardiography was performed to visualize the leftatrium and interatrial septum. A Decapolar bidirectional catheter was advancedvia the locking 8-Burmese sheath and placed in the coronary sinus. A 5-FrenchCournand catheter was advanced via the 6-Burmese sheath and placed in the rightventricle. Adequate pacing and sensing was confirmed. The 8-Burmese sheath wasexchanged for the VersaCross sheath over [...] site was then performed using a short 12-Burmese, pghb76-Mfaans sheath. The cryo FlexCath sheath was then [...] femoral arteriogram was obtained vi a the 6-Burmese sheath. After confirmation of adequate placement of the sheath, a 6- Burmese Angio-Seal device was deployed without complication. The [...] MD WT: CATH:DAYANA/PEPGR/NTSDD: 09/14/2021 13:57:18DT: 09/14/2021 15:28:52Conf#: [id number]#: [id number] cc: Remberto Vega MD Authenticated and Edited by Ramon Garvey MD On 09/14/21 3:42:44 PM at 0345 PATIEN T NAME: MATTHEW REYNOLDS ugsl6623-74-94V88:28:00Z.QCV99492544-4537AXJngpf a ble for patient pfnkCSFIIQMYLOOSMM8802-39-95C32:57:54 2021-09-14 08:01:00 [id number]:01:[id number] [address] PATIENT NAME: MATTHEW REYNOLDS ADMIT DATE: 09/14/21ACCOUNT NO: [id number] ROOM NO: 349 AGE : 66 REPORT TYPE: ELECTROCARDIOGRAM SEX: M ADMITTING PHYSICIAN:Ramon Garvey MD ATTENDING PHYSICIAN:Ramon Garvey MD Order:[id number] Reason : AFIB Test Date/Time Stamp:TueSep 14 [...] VEGA at 1618 PATIENT NAME: MATTHEW REYNOLDS .[id number] AVAvailable for patient djagDHSFMVBHPUUQLD6935-60-17J83:59:34
[2023-06-27] MEDS ORDERED: MORPHINE 4 MG/ML SYR ONE ×4 (04:52→11:29)
[2023-06-27 05:15] LABS: Absolute Lymphocytes (CBC) 0.8 K/uL (0.7-4.9); Hematocrit 28.1 % (39.6-49.0); Lymphocytes % 9.3 % (15.3-44.8); MCV 100.8 fL (80-100); MPV 6.7 fL (7.6-11.3); Platelets 352 thou/uL (152-406); RBC Red Blood Cell Count 2.79 M/uL (4.33-5.43)
[2023-06-27 05:35] LABS: Albumin 3.8 g/dL (3.4-5.0); Bilirubin Total 0.7 mg/dL (0.2-1.0); Potassium 4.1 mEq/L (3.5-5.1); Protein, Total 7.8 g/dL (6.4-8.2)
[2023-06-27 05:50] LABS: Urine Bacteria None Seen /HPF (<20); Urine RBC >50 /HPF (None Seen)
[2023-06-27 05:55] LABS: Specific Gravity ND (1.005-1.030); Urine Bilirubin ND (Negative); Urine Blood ND (Negative); Urine Clarity Extremely Turbid (Clear); Urine Color Red (Yellow); Urine Glucose ND (Negative); Urine Protein ND (Negative); Urine Urobilinogen ND (Normal); Urine pH ND (5.0-7.0)
[2023-06-27] MEDS ORDERED: MORPHINE 2 MG/ML SYR ONE (08:31)
[2023-06-27] MEDS ORDERED: ONDANSETRON 4 MG/2 ML VIAL ONE (08:32)
[2023-06-27] MEDS ORDERED: NA CHLORIDE 0.9% 0 ML ONE (11:06)
[2023-06-27] MEDS ORDERED: NACL 0.9% IRR SOLN 2,000 ML IRR ONE (11:08)
[2023-06-27] MEDS ORDERED: LORazepam 2 MG/ML VIAL ONE (11:17)
[2023-06-27] MEDS ORDERED: LIDOCAINE HCL JELLY 2% 6 ML SYRINGE TOP ONE (11:29)
--- NOTE | 2023-06-27 11:34 | EDPHYS ---
Physician Documentation [facility] Name: Matthew Reynolds Age: 68 yrs Sex: Male : 1955 Arrival Date: 06/27/2023 Time: 03:55 Bed 19 Private MD: ED Physician Piotr Jean HPI: 06/27 08:47 This 68 yrs old Male presents to ER via Wheelchair with complaints of Urinary Retention.ms3 08:47 68-year-old male with past medical history of anemia, atrial fibrillation, hypertension ms3 presents to the emergency department for suprapubic pain that began at 8 PM. Patient states pain is 7/10. Patient denies any alleviating or inciting factors. Patient denies fevers, chills, nausea, vomiting. Historical: - Allergies: 04:22 Lisinopril; lg3 - Home Meds: 10:36 amlodipine 10 mg tablet 1 tab [Active]; aspirin 81 mg Oral capsule [Active]; mb9 atorvastatin 80 mg oral tablet [Active]; Cholestyramine Light 4 gram oral powder [Active]; clopidogrel 75 mg oral tablet [Active]; finasteride 5 mg oral tablet 1 tab [Active]; losartan 100 mg oral tablet 1 tab [Active]; pantoprazole 40 mg oral tablet, delayed release (enteric coated) [Active]; sotalol 80 mg Oral tablet [Active]; tamsulosin 0.4 mg oral capsule [Active]; - PMHx: 04:22 Anemia; Atrial fibrillation; Hypertension; lg3 - PSHx: 04:22 Cholecystectomy; Stented artery; TURP; ablasian (TURP); lg3 - Immunization history:: Adult Immunizations up to date. - Social history:: Smoking status: Patient denies any tobacco usage or history of. Patient uses alcohol, on a daily basis. ROS: 08:47 Constitutional: Negative for fever, and chills. Neck: Negative for injury, pain, and ms3 swelling, Cardiovascular: Negative for chest pain, and palpitations. Respiratory: Negative for shortness of breath, cough, wheezing, and pleuritic chest pain, 08:47 Abdomen/GI: Positive for Suprapubic pain, Exam: 08:47 Constitutional: This is a well developed, well nourished patient who is awake, alert, ms3 and in no acute distress. Head/Face: Normocephalic, atraumatic. Neck: Trachea midline, no cervical lymphadenopathy. Supple, full range of motion without nuchal rigidity, or vertebral point tenderness. No Meningismus. Chest/axilla: Normal chest wall appearance and motion. Nontender with no deformity. Cardiovascular: Regular rate and rhythm with a normal S1 and S2. No gallops, murmurs, or rubs. Normal PMI, no JVD. No pulse deficits. Respiratory: Lungs have equal breath sounds bilaterally, clear to auscultation and percussion. No rales, rhonchi or wheezes noted. No increased work of breathing, no retractions or nasal flaring. 08:47 Skin: Warm, dry with normal turgor. Normal color with no rashes, no lesions, and no evidence of cellulitis. 08:47 Abdomen/GI: Inspection: abdomen appears normal, Bowel sounds: normal, Palpation: moderate abdominal tenderness, in the suprapubic area, Vital Signs: 04:10 BP 160 / 91; la4 04:15 BP 187 / 95; Pulse 92; Resp 18; Pulse Ox 100% ; la4 04:19 BP 160 / 91; Pulse 119; Resp 19 S; Pulse Ox 100% on R/A; Weight 81.65 kg (R); Height 5 lg3 ft. 7 in. (R); 04:45 BP 177 / 97; Pulse 89; Resp 20; Pulse Ox 100% ; la4 05:15 BP 141 / 69; Pulse 76; Resp 18; Pulse Ox 100% ; la4 05:55 BP 198 / 95; Pulse 79; Resp 20; Pulse Ox 99% ; la4 06:15 BP 144 / 70; Pulse 80; Resp 22; Pulse Ox 100% ; la4 06:45 BP 149 / 71; Pulse 79; Resp 20; Pulse Ox 100% ; la4 07:17 BP 140 / 69; Pulse 89; Resp 20; Pulse Ox 100% on R/A; ld1 08:00 BP 155 / 77; Pulse 102; Resp 18; Pulse Ox 100% on R/A; ld1 08:23 BP 131 / 99; Pulse 80; Resp 18; Pulse Ox 99% on R/A; Pain 8/10; ld1 09:42 BP 166 / 85; Pulse 77; Resp 16; Pulse Ox 96% on R/A; mb9 10:39 BP 156 / 68; Pulse 88; Resp 18; Pulse Ox 100% on R/A; mb9 12:13 BP 116 / 85; Pulse 92; Resp 18; Pulse Ox 98% on R/A; mb9 04:19 Body Mass Index 28.19 (81.65 kg, 170.18 cm) lg3 08:23 Pain Scale: Adult ld1 Bernardo Coma Score: 06:45 Eye Response: spontaneous(4). Motor Response: obeys commands(6). Verbal Response: la4 oriented(5). Total: 15. MDM: 04:25 Patient medically screened. ms3 08:47 Differential diagnosis: UTI, urinary retention, Hematuria. Transition of care: After a ms3 detail discussion of the patient's case, care is transferred to Piotr Jean MD. 11:11 Management of patient was discussed with the following: Asphalt Plant Laborer: Dr. Johnson called rn back, request bladder irrigation and to call them back for disposition. New Andrade catheter that was placed today seems clogged, was draining 800 cc of bloody urine out initially, is now failing to drain and cannot be flushed. Will replace with larger catheter and start continuous bladder irrigation. 11:32 Data reviewed: vital signs, nurses notes, lab test result(s), and as a result, I will corn cutter operator patient. 11:32 Consideration of Admission/Observation Patient was admitted/placed on observation. rn Escalation of care including admission/observation considered. Counseling: I had a detailed discussion with the patient and/or guardian regarding the historical points, exam findings, and any diagnostic results supporting the discharge/admit diagnosis, lab results, radiology results, the need to transfer to another facility, for higher level of care, [facility] does not immediately have the required specialist. Response to treatment: There is no appreciated change of the patient's symptoms at this time. 11:59 ED course: Consulted with Dr. Johnson once again, manual irrigation not working and rn continuous irrigation clogged. He wants us to try again to irrigate manually, and if unsuccessful then transfer.. 06/27 04:25 Order name: CBC with Diff; Complete Time: 06:34 ms3 06/27 04:25 Order name: CMP; Complete Time: 06:34 ms3 06/27 04:25 Order name: Urinalysis w/ reflexes; Complete Time: 06:34 ms3 12 04:25 Order name: CT Abd/Pelvis - IV Contrast Only ms3 06/27 04:25 Order name: IV Saline Lock; Complete Time: 04:59 ms3 12 04:25 Order name: Labs collected and sent; Complete Time: 04:59 ms3 Administered Medications: 04:59 Drug: morphine IVP or IV 4 mg IVP once over 4 mins Route: IVP; Infused Over: 4 mins; la4 Site: right forearm; 08:23 Drug: Ondansetron IVP 4 mg IVP once; over 2 minutes Route: IVP; Site: right hand; ld1 08:23 Drug: morphine IVP or IV 2 mg IVP once over 4 mins; Verbal order per Mushtaq Woo MD ld1 Route: IVP; Infused Over: 4 mins; Site: right hand; 10:55 Drug: morphine IVP or IV 4 mg IVP once over 4 mins Route: IVP; Infused Over: 4 mins; mb9 Site: right forearm; 11:10 Drug: Ativan IVP 0.5 mg IVP once Route: IVP; Site: right wrist; ld1 11:54 Drug: Lidocaine Mucous Membrane Gel 2 % 1 ea 15 ml Mucous Membrane once Volume: 15 ml; mb9 Route: Mucous Membrane; Disposition Summary: 06/27/23 11:33 Transfer Ordered Notes: Transfer Location: [facility] rn Reason: Higher level of care rn Condition: Stable rn Problem: new rn Symptoms: are unchanged rn Accepting Physician: (06/27/23 14:31) reyna Diagnosis - Gross hematuria rn - Retention of urine, unspecified rn Forms: - Medication Reconciliation Form rn - SBAR form rn Signatures: Dispatcher [employer] EDPiotr Da Silva MD MD rn Gibson, Lacie RN RN lg3 Mushtaq Woo DO DO ms3 Cathleen Woo RN RN [email or web address] Kaylie Quesada RN RN mb9 Lily Beavers RN RN la4 Corrections: (The following items were deleted from the chart) 14:31 11:33 Dr. tien [email or web address]
--- NOTE | 2023-06-27 11:34 | ER ---
Nurse's Notes [facility] Name: Matthew Reynolds Age: 68 yrs Sex: Male : 1955 Arrival Date: 06/27/2023 Time: 03:55 Bed 19 Private MD: Diagnosis: Gross hematuria;Retention of urine, unspecified Presentation: 06/27 04:19 Chief complaint: Patient states: TURP 2 weeks ago. increasing lower abdominal pain, lg3 groin pain, and bloody urine output beginning yesterday around 1999. Coronavirus screen: Client denies travel out of the [place] in the last 14 days. At this time, the client does not indicate any symptoms associated with coronavirus-19. Ebola Screen: No symptoms or risks identified at this time. Initial Sepsis Screen: Does the patient meet any 2 criteria? No. Patient's initial sepsis screen is negative. Does the patient have a suspected source of infection? No. Patient's initial sepsis screen is negative. Risk Assessment: Do you want to hurt yourself or someone else? Patient reports no desire to harm self or others. Onset of symptoms was June 26, 2023. 04:19 Method Of Arrival: Wheelchair lg3 04:19 Acuity: RUFUS 3 lg3 Triage Assessment: 04:22 General: Appears in no apparent distress. uncomfortable, Behavior is cooperative, lg3 anxious, restless. Pain: Complains of pain in pelvis. EENT: No deficits noted. No signs and/or symptoms were reported regarding the EENT system. Neuro: Ospina Agitation-Sedation Scale (RASS): +1 Restless Level of Consciousness is awake, alert, obeys commands, Oriented to person, place, time, situation. Cardiovascular: No deficits noted. Denies chest pain, shortness of breath, Capillary refill < 3 seconds Clubbing of nail beds is absent JVD is absent Patient's skin is warm and dry. Respiratory: Reports shortness of breath Airway is patent Respiratory effort is even, unlabored, Respiratory pattern is regular, symmetrical. GI: Abdomen is round non-distended. : Pedro in place to gravity drainage Urine is blood tinged, Reports incontinence, inability to void, pain in suprapubic area. Derm: Skin is intact, is healthy with good turgor, Skin is dry, Skin is pale, Skin temperature is warm. Musculoskeletal: No deficits noted. No signs and/or symptoms reported regarding the musculoskeletal system. Circulation, motion, and sensation intact. Range of motion: intact in all extremities. Historical: - Allergies: 04:22 Lisinopril; lg3 - Home Meds: 10:36 amlodipine 10 mg tablet 1 tab [Active]; aspirin 81 mg Oral capsule [Active]; mb9 atorvastatin 80 mg oral tablet [Active]; Cholestyramine Light 4 gram oral powder [Active]; clopidogrel 75 mg oral tablet [Active]; finasteride 5 mg oral tablet 1 tab [Active]; losartan 100 mg oral tablet 1 tab [Active]; pantoprazole 40 mg oral tablet, delayed release (enteric coated) [Active]; sotalol 80 mg Oral tablet [Active]; tamsulosin 0.4 mg oral capsule [Active]; - PMHx: 04:22 Anemia; Atrial fibrillation; Hypertension; lg3 - PSHx: 04:22 Cholecystectomy; Stented artery; TURP; ablasian (TURP); lg3 - Immunization history:: Adult Immunizations up to date. - Social history:: Smoking status: Patient denies any tobacco usage or history of. Patient uses alcohol, on a daily basis. Screenin:45 [facility] ED Fall Risk Assessment (Adult) History of falling in the last 3 months, la4 including since admission No falls in past 3 months (0 pts) Confusion or Disorientation No (0 pts) Intoxicated or Sedated No (0 pts) Impaired Gait No (0 pts) Mobility Assist Device Used No (0 pt) Altered Elimination No (0 pt) Score/Fall Risk Level 0 - 2 = Low Risk. Abuse screen: Denies threats or abuse. Denies injuries from another. Nutritional screening: No deficits noted. Tuberculosis screening: No symptoms or risk factors identified. Assessment: 04:15 General: Appears distressed, uncomfortable, Behavior is cooperative, appropriate for la4 age, restless. General: Appears. Cardiovascular: No deficits noted. Heart tones S1 S2 Capillary refill < 3 seconds is brisk Pulses are all present. Rhythm is sinus rhythm. Respiratory: No deficits noted. Airway Respiratory effort is even, unlabored, Respiratory pattern is regular, symmetrical, Breath sounds are clear. GI: Abdomen is round distended, Bowel sounds present X 4 quads. Abdomen is tender to palpation Abd is rigid in suprapubic area, right lower quadrant and left lower quadrant Reports lower abdominal pain. : Pedro in place w/ leg bag Urine is saqib blood, Genitalia appear normal pt reports voiding around catheter when going to the bathroom Bladder is distended Reports burning with urination, inability to void, Parent/caregiver report the patient having burning with urination inability to void. 04:15 Pain: Complains of pain in suprapubic area Pain does not radiate. Pain currently is 10 la4 out of 10 on a pain scale. Quality of pain is described as pressure, Pain began Is continuous. Neuro: Ospina Agitation-Sedation Scale (RASS): 0 - Alert and Calm Level of Consciousness is awake, alert, obeys commands, Oriented to person, place, time, situation, Appropriate for age. 08:24 Reassessment: Pt reports feeling anxious and feeling the urge to urinate but unable to ld1 do so. C/O pain in lower abdomen. Notified ERP. See MAR for oders. : Pedro in place Urine is saqib blood, Genitalia appear normal Saqib red blood still in catheter tubing. Notified ERP. 09:42 Reassessment: No changes from previously documented assessment. Patient and/or family mb9 updated on plan of care and expected duration. Pain level reassessed. Patient is alert, oriented x 3, equal unlabored respirations, skin warm/dry/pink. 11:00 Reassessment: No changes from previously documented assessment. Patient and/or family mb9 updated on plan of care and expected duration. Pain level reassessed. Patient is alert, oriented x 3, equal unlabored respirations, skin warm/dry/pink. 13:19 Reassessment: Patient appears in no apparent distress at this time. No changes from mb9 previously documented assessment. Patient and/or family updated on plan of care and expected duration. Pain level reassessed. Patient is alert, oriented x 3, equal unlabored respirations, skin warm/dry/pink. 13:29 Reassessment: Attempted to call report to transferring nurse. Told to call back due to mb9 nurse not available at this moment. 14:00 Reassessment: report given to transferring nurse THOMPSON Funk. mb9 14:29 Reassessment: Report given to [facility]. mb9 Vital Signs: 04:10 BP 160 / 91; la4 04:15 BP 187 / 95; Pulse 92; Resp 18; Pulse Ox 100% ; la4 04:19 BP 160 / 91; Pulse 119; Resp 19 S; Pulse Ox 100% on R/A; Weight 81.65 kg (R); Height 5 lg3 ft. 7 in. (R); 04:45 BP 177 / 97; Pulse 89; Resp 20; Pulse Ox 100% ; la4 05:15 BP 141 / 69; Pulse 76; Resp 18; Pulse Ox 100% ; la4 05:55 BP 198 / 95; Pulse 79; Resp 20; Pulse Ox 99% ; la4 06:15 BP 144 / 70; Pulse 80; Resp 22; Pulse Ox 100% ; la4 06:45 BP 149 / 71; Pulse 79; Resp 20; Pulse Ox 100% ; la4 07:17 BP 140 / 69; Pulse 89; Resp 20; Pulse Ox 100% on R/A; ld1 08:00 BP 155 / 77; Pulse 102; Resp 18; Pulse Ox 100% on R/A; ld1 08:23 BP 131 / 99; Pulse 80; Resp 18; Pulse Ox 99% on R/A; Pain 8/10; ld1 09:42 BP 166 / 85; Pulse 77; Resp 16; Pulse Ox 96% on R/A; mb9 10:39 BP 156 / 68; Pulse 88; Resp 18; Pulse Ox 100% on R/A; mb9 12:13 BP 116 / 85; Pulse 92; Resp 18; Pulse Ox 98% on R/A; mb9 04:19 Body Mass Index 28.19 (81.65 kg, 170.18 cm) lg3 08:23 Pain Scale: Adult ld1 Aubrey Coma Score: 06:45 Eye Response: spontaneous(4). Motor Response: obeys commands(6). Verbal Response: la4 oriented(5). Total: 15. ED Course: 04:00 Report given to Cathleen MACKAY. Client placed on continuous cardiac and pulse oximetry la4 monitoring. NIBP monitoring applied. 04:00 No provider procedures requiring assistance completed. Inserted saline lock: 20 gauge la4 in right forearm, using aseptic technique. 04:00 Changed from 16FR to 20 FR pedro due to saqib blood and distended abdomen. 300 urine la4 output recorded prior to change of pedro catheter. Dr. Woo notified. Awaiting further orders and Urology. CT results pending. 04:05 Patient arrived in ED. [email or web address] 04:07 Mushtaq Woo DO is Attending Physician. ms3 04:22 Triage completed. lg3 04:22 Arm band placed on right wrist. lg3 04:35 Lily Beavers, RN is Primary Nurse. la4 04:59 CBC with Diff Sent. la4 04:59 CMP Sent. la4 06:05 CT Abd/Pelvis - IV Contrast Only In Process Unspecified. EDMS 06:45 Placed in gown. Bed in low position. Call light in reach. Side rails up X2. Provided la4 Education on: plan of care discussed w/ patient. 07:[address] Johnson, pts urologist. bd 08:49 Attending Physician role handed off by Mushtaq Woo DO ms3 08:49 Piotr Jean MD is Attending Physician. ms3 10:43 initiated transfer to [facility]. bd 11:55 Removed 16 FR pedro. Inserted [address] pedro for continuous irrigation of bladder. mb9 400 cc of bloody urine removed. 12:13 Patient transferred, IV remains in place. mb9 13:46 pt accepted in transfer to [facility] [address], admin bd approval given by Catherine Cardona. Administered Medications: 04:59 Drug: morphine IVP or IV 4 mg IVP once over 4 mins Route: IVP; Infused Over: 4 mins; la4 Site: right forearm; 08:23 Drug: Ondansetron IVP 4 mg IVP once; over 2 minutes Route: IVP; Site: right hand; ld1 08:23 Drug: morphine IVP or IV 2 mg IVP once over 4 mins; Verbal order per Mushtaq Woo MD ld1 Route: IVP; Infused Over: 4 mins; Site: right hand; 10:55 Drug: morphine IVP or IV 4 mg IVP once over 4 mins Route: IVP; Infused Over: 4 mins; mb9 Site: right forearm; 11:10 Drug: Ativan IVP 0.5 mg IVP once Route: IVP; Site: right wrist; ld1 11:54 Drug: Lidocaine Mucous Membrane Gel 2 % 1 ea 15 ml Mucous Membrane once Volume: 15 ml; mb9 Route: Mucous Membrane; Medication: 06:45 VIS not applicable for this client. la4 Output: 10:40 Urine: 400ml (Pedro); Total: 400ml. mb9 Outcome: 11:33 ER care complete, transfer ordered by . rn 14:29 Transferred by ground EMS to [facility], Transfer form completed. mb9 14:29 Condition: stable 14:29 Instructed on the need for transfer, 14:31 Patient left the ED. mb9 Signatures: Dispatcher [employer] EDMS Ev Ann Roman, MD MD rn Gibson, Lacie RN RN lg3 Mushtaq Woo DO DO ms3 Cathleen Woo RN RN ld1 Rosmery Langej6 Kaylie Quesada, RN RN mb9 Lily Beavers RN RN la4 Corrections: (The following items were deleted from the chart) 07:10 06:51 General: Appears la4 la4 07:10 06:53 General: Appears distressed, uncomfortable, Behavior is cooperative, appropriate la4 for age, restless, la4 07: 06:53 Pain: Complains of pain in suprapubic area Pain does not radiate. Pain currently la4 is 10 out of 10 on a pain scale. Quality of pain is described as pressure, Pain began Is continuous, la4 07:10 06:53 Neuro: Ospina Agitation-Sedation Scale (RASS): 0 - Alert and Calm Level of la4 Consciousness is awake, alert, obeys commands, Oriented to person, place, time, situation, Appropriate for age la4 07:10 06:53 Cardiovascular: No deficits noted. Heart tones S1 S2 Capillary refill < 3 seconds la4 is brisk Pulses are all present. Rhythm is sinus rhythm la4 07: 06:53 Respiratory: No deficits noted. Airway Respiratory effort is even, unlabored, la4 Respiratory pattern is regular, symmetrical, Breath sounds are clear la4 07:10 06:53 GI: Abdomen is round distended, Bowel sounds present X 4 quads. Abdomen is tender la4 to palpation Abd is rigid in suprapubic area, right lower quadrant and left lower quadrant Reports lower abdominal pain, la4 07:10 06:53 : Pedro in place w/ leg bag Urine is saqib blood, Genitalia appear normal pt la4 reports voiding around catheter when going to the bathroom Bladder is distended Reports burning with urination, inability to void, Parent/caregiver report the patient having burning with urination inability to void betsy 13:19 12:12 Reassessment: reyna orellana
--- NOTE | 2023-06-27 12:55 | RAD REPORT ---
EXAM DESCRIPTION: CT - Abdomen Pelvis W Contrast - 06/27/2023 7:33 am CLINICAL HISTORY: The patient is 68 years old and is Male; SP pain s/p prostatectomy TECHNIQUE: Axial computed tomography images of the abdomen and pelvis with intravenous contrast. S agittal and coronal reformatted images were created and reviewed. This CT exam was performed using one or more of the following dose reduction techniques: automated exposure control, adjustment of t he mA and/or kV according to patient size, and/or use of iterative reconstruction technique. COMPARISON: No relevant prior studies available. FINDINGS: Lung bases: Unremarkable. No mass. No consolidation. Mediastinum: Small hiatal hernia. ABDOMEN: Liver: Unremarkable. No mass. Gallbladder and bile ducts: Gallbladder is surgically absent. No ductal dilation. Pancreas: Unremarkable. No mass. No ductal dilation. Spleen: Unremarkable. No splenomegaly. Adrenals: Unremarkable. No mass. Kidneys and ureters: Unremarkable. No solid mass. No hydronephrosis. Stomach and bowel: Scattered colonic diverticula. No obstruction. No mucosal thickening. PELVIS: Appendix: The appendix is normal. Bladder: The Andrade catheter balloon appears to be inflated within the urethra below the bladder. Heterogeneous hyperdensity within the bladder suggestive of hemorrhage/hematoma. Reproductive: Unremarkable as visualized. ABDOMEN and PELVIS: Intraperitoneal space: Unremarkable. No free air. No significant fluid collection. Bones/joints: No acute fracture. No dislocation. Soft tissues: Unremarkable. Vasculature: Scattered atherosclerotic vascular calcifications. No abdominal aortic aneurysm. Lymph nodes: Unremarkable. No enlarged lymph nodes. IMPRESSION: 1. The Andrade catheter balloon appears to be inflated within the urethra below the blad chan. 2. Heterogeneous hyperdensity within the bladder suggestive of hemorrhage/hematoma. Electronically signed by: Daniel Jefferson MD 06/27/2023 06:52 AM COUNSELLING PSYCHOLOGIST Due to temporary technical issues with the PACS/Fluency reporting system, reports are being signed by the in house radiologist without review as a courtesy to ensure prompt reporting. The interpreting r adiologist is fully responsible for the content of the report.
[2023-06-27 15:02] VITALS: BP 116/85; O2SAT 98
== END 2023-06-27 14:31 | disposition short-term general hospital (02) ==
LOC: ER 03:55
DX: R31.0 Gross hematuria (principal); R33.9 Retention of urine, unspecified; I10 Essential (primary) hypertension; I48.91 Unspecified atrial fibrillation; Z79.82 Long term (current) use of aspirin; Z88.8 Allergy status to other drugs, medicaments and biological substances
CPT/HCPCS: 85025; 81001; 36415; 80053; 74177; 99285; Q9967; J2270; J2405; J7030